=== PATIENT | male | born 1950 ===

== ENCOUNTER → 2021-08-29 08:59 | Outpatient (BNVA) | payer MEDICARE, SELFPAY | PROVIDERS: PCP Internal Medicine; Visit Provider Urology | DX: N52.9 Male erectile dysfunction, unspecified (principal) | CPT/HCPCS: 99212 ==

== ENCOUNTER 2024-09-22 10:28 | Outpatient (AMB) | payer MEDICARE, SELFPAY ==
--- NOTE | 2024-09-22 11:06 | A.OFFVIS_ITS ---
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 LETHARGY pregabalin [From LYRICA] Allergy (Unknown, Verified 09/22/24 11:08) SKIN CRAWL HPI Comments Details: Cole is a very pleasant male. He is a patient of Dr. Mckoy. He is seen for the following urologic condition. - erectile dysfunction - low libido - urinary frequency Has not been seen since 09/14/2021 Primary concern is urinary frequency with urge Has recently had increase in dose of Jardiance from 20 mg to 45 mg Discussed pathophysiology of Jardiance. Dumps glucose into urine. This leads to increased thirst, urinary volume, urinary frequency. Recommend discussion with primary care regarding change in time of Jardiance administration or change in medication dosage. It appears he can not tolerate high-dose Jardiance. His other issue is decreased energy. Recommend testing testosterone baseline given diabetic status. Given low tolerability of high-dose Jardiance would recommend investigation for GLP 1 administration with associated weight loss. Testosterone labs now and in three-month Erectile dysfunction Penile implant placed proximally 2015 Has had issues with activation Concern about prior infection with MRI that was negative in November 2019 On examination today prosthetic was only partially deflated We went through discussion and instruction for full deflation followed by full inflation Prosthesis is mechanically intact with good inflation and Good deflation He had some degree of uncertainty about the exact process for each of these functions and this was addressed in the visit today PENDING SALE TO [facility] Surgical History (Updated 08/31/24 @ 14:42 by LEAH Hayes) History of hemilaminectomy H/O colonoscopy Hx of appendectomy Review of Systems Const Denies chills and Denies fever(s) Card Reports no additional complaints and Denies syncope Resp Denies cough GI Denies abdominal pain and Denies heartburn Reports as per HPI and Denies change in libido Neuro Denies syncope Psych Denies change in libido Endo Denies change in libido Physical Exam Const General: cooperative, healthy appearing, comfortable and no acute distress Orientation/consciousness: patient oriented x3 HEENT Face and sinus: Yes normal facial exam Mouth: moist mucous membranes Neck Neck: Yes normal visual inspection, Yes full ROM and Yes trachea midline Chest Chest palpation & inspection: normal inspection of the chest Resp Effort & Inspection: normal respiratory effort, able to speak in complete sentences and no respiratory distress GI Inspection: Yes normal to inspection Back/Spine/Pelvis Cervical Spine: normal cervical lordosis Thoracic/Lumbar Spine: thoracic and lumbar spine normal to inspection Skin General skin exam: no rashes or lesions noted Neuro General: patient oriented x3, gait normal, tone normal and moves all extremities Extrem General: Yes normal to inspection and Yes capillary refill normal Results AMB Urinalysis, Automated UA Leukoctes 0 Cora/uL Last Edit by DAVIAN Villagomez on 09/22/24 11:24 UA Nitrite Negative Last Edit by DAVIAN Villagomez on 09/22/24 11:24 UA Urobilinogen 0.2 mg/dL Last Edit by DAVIAN Villagomez on 09/22/24 11:2 4 UA Protein 0 mg/dL Last Edit by DAVIAN Villagomez on 09/22/24 11:24 UA pH 5.5 Last Edit by Jin Wilder CCM on 09/22/24 11:24 UA Blood 0 Mariano/uL Last Edit by DAVIAN Villagomez on 09/22/24 11:24 UA Specific [place] 1.015 Last Edit by DAVIAN Villagomez on 09/22/24 11: 24 UA Ketone Negative Last Edit by DAVIAN Villagomez on 09/22/24 11:24 UA Bilirubin 0 mg/dL Last Edit by Jin Wilder CCM on 09/22/24 11:24 UA Glucose 1000 mg/dL Last Edit by DAVIAN Villagomez on 09/22/24 11:24 Results Reviewed Results Reviewed: Laboratory Last Values Urine pH (Auto) 5.5 09/22/24 11:24 Specific [place] (Auto) 1.015 09/22/24 11:24 Urine Protein (Auto) 0 mg/dL 09/22/24 11:24 Glucose (UA)(Auto) 1000 mg/dL 09/22/24 11:24 Urine Ketones (Auto) Negative 09/22/24 11:24 Urine Blood (Auto) 0 Mariano/uL 09/22/24 11:24 Urine Nitrite (Auto) Negative 09/22/24 11:24 Urine Bilirubin (Auto) 0 mg/dL 09/22/24 11:24 Urine Urobilinogen (Auto) 0.2 mg/dL 09/22/24 11:24 Leukocyte Esterase (Auto) 0 Cora/uL 09/22/24 11:24 Assessment & Plan Assessment & Plan (1) Erectile dysfunction associated with type 2 diabetes mellitus: Code(s): E11.69 - Type 2 diabetes mellitus with other specified complication; N52.1 - Erectile dysfunction due to diseases classified elsewhere Category: Medical (2) Low libido: Code(s): R68.82 - Decreased libido Category: Medical Plan Testosterone labs now Testosterone labs three-month Three-month follow-up Orders: Orders AMB Urinalysis Automated Today Z13.9 - Encounter for screening, unspecified Testosterone, Free/Total Today E11.69 - Type 2 diabetes mellitus with other specified complication, N52.1 - Erectile dysfunction due to diseases classified elsewhere Lutenizing Hormone Today E11.69 - Type 2 diabetes mellitus with other specified complication, N52.1 - Erectile dysfunction due to diseases classified elsewhere Testosterone, Free/Total 3 Months E11.69 - Type 2 diabetes mellitus with other specified complication, N52.1 - Erectile dysfunction due to diseases classified elsewhere Patient Instructions: Imaging studies, laboratory and physical exam results were discussed and reviewed in detail. No major barriers to patient understanding were identified. An opportunity to ask questions regarding the treatment plan was provided. All questions were answered. The patient expressed understanding and agreement with the above treatment plan. The patient is aware they should contact our office by phone for worsening of their current condition or the appearance of new urologic symptoms. Compliance is encouraged with any medications and followup testing that is ordered. It is a privilege to participate in the urologic care of your patient. If you have any questions or concerns regarding treatment for the above conditions, or other urologic issues, please do not hesitate to contact me. The office telephone contact is [phone]. This note is constructed using voice recognition software. While every effort has been made to ensure accuracy command post craftsman errors may have been included. Yours sincerely, Dr Louis Mccurdy MD, [facility] - Urology Providers of Expert, Compassionate Care for the Genitourinary System Coding Level of Care Code Est Pt Level 4 (63789) Diagnoses Erectile dysfunction associated with type 2 diabetes mellitus E11.69; N52.1 Low libido R68.82
--- OUTSIDE RECORDS SUMMARY | 2024-09-22 11:27 | XMS_ITS | Patient Health Record ---
Author Organization 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 Name Role Phone Yvon Mckoy Jr, MD Primary Care Provider Unavail able Benyambar Nikkie Unavailable [phone] Allergies Allergen (clinical drug ingredient) Drug/Non Drug Allergy documented on EMR Reaction Allergy Type Onset Date Status ibuprofen Advil Unknown Drug Allergy Active Aleve Unknown Drug Allergy Active Motrin Unknown Drug Allergy Active Reason For Referral No Information Medications Medication SIG (Take, Route, Frequency, Duration) Notes Start Date End Date Status Lisinopril-hydroCHLOROthia zide Unknown Sertraline HCl Activ e Eplerenone 25 MG 1 tablet Orally Once a day for 30 day(s) Not-Taking Potassium Chloride U nknown amLODIPine Besylate Unknown Spironolactone 25 MG 1 tablet Orally for 30 day(s) Active Felodipine ER 5 MG as directed Orally Active Gabapentin Active metFORMIN HCl Active Pravastatin Sodium A ctive Colace 100 MG 1 capsule as needed Orally Once a day for 30 day(s) Active Voltaren 1 % as directed Externally Active Aspirin Active tiZANidine HCl 4 MG 1 tablet as needed Orally Three times a day Active Carvedilol 25 MG 1 tablet with food Orally Twice a day for 30 day(s) Active Narcan 4 MG/0.1ML as directed Nasally Active Meloxicam 15 MG 1 tablet Orally Once a day for 30 day(s) Active Famotidine 20 MG 1 tablet at bedtime as needed Orally Once a day for 30 day(s) Active Accu-Chek Guide w/Device as directed Active Pravastatin Sodium 40 MG 1 tablet Orally Once a day for 30 day(s) Active oxyCODONE-Acetaminophen 5-325 MG 1 tablet as needed Orally every 6 hrs Active Immunizations Vaccine Route Administration Date Status Comme nts Influenza Unknown 06/07/2022 Administered Social History Tobacco Use: Social History Observation Description Date Details (start date - stop date) Former Smoker NA - NA Tobacco Use/Smoking Question Answer Notes Are you a: former smoker Additional Findings: Tobacco Non-User Current no n-smoker Tobacco use other than smoking: Question Answer Notes Are you an other tobacco user? 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 Rx drug management (4) Problem Chronic gouty arthritis (53394690) 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) Active confirmed Rx drug management (4) Plan Of Treatment No Information Insurance Providers Payer Name Payer Address Payer Phone Subscriber Number Group Number Insured Name Patient Relationship to Insured Coverage Start Date Coverage End Date Medicare [employer] [address] [facility] [place] [address] [phone] [id number] Cole Taylor Self - patient is the insured A[employer] Secondary to Medicare [address] [place] [address] [id number] Cole Taylor Self - patient is the insured Medical (General) History Medical History History ICD Code Back,Hip,and Knee pain type II diabetes Diverticulosis Gout High blood pressure Sciatica Chicken pox Arthritis Numbness Diabetic Reflux ( GERD) Surgical History Surgery Date(Month/Year) back 06/19/2010 tonsills 1970s
--- OUTSIDE RECORDS SUMMARY | 2024-09-22 11:27 | XMS_ITS | Data Portability ---
Author Organization [facility] Address [address] [facility] [address] [place] [address] Care Team Providers Care Social Science Analyst Name Role Phone EZIO DONALDSON Primary Care Provider JIMBO CLAROS Referring Provider Assessment Encounter Date Assessment Date Assessment LastModified by Organization Details LastModified Time 12/04/2023 12/04/2023 Cole Taylor is a 73 year old man with complaints of low back pain radiating into left lower extremity with numbness. MRI Lumbar spine shows degenerative and postoperative changes. There is a minimal new disc protrusion at L1-2 level with no nerve root compression or stenosis. There is a slight decrease in size of the L4-5 disc protrusion. There is severe bilateral stenosis at L5-S1 level with a right disc osteophyte complex in close proximity to right L5 nerve root. He is here for a repeat Lumbar epidural steroid injections under fluoroscopic guidance. The risks and benefits of the procedure were discussed in detail. He wishes to proceed. He will follow up as needed. I have encouraged him to continue with home exercises. He is a diabetic. Blood sugar levels may temporarily increase after steroid injections. He was advised to check his blood glucose levels three times a day post procedure. If his levels are above 250, he was advised to contact his PCP. [email or web address] Not available 12/04/2023 13:42:23 03/05/2024 03/05/2024 Cole Taylor is a 73 year old man with complaints of low back pain radiating into left lower extremity with numbness. MRI Lumbar spine shows degenerative and postoperative changes.Multiple levels of lumbar spondylosis . Especially L5-S1 level has severe left neuro foramen narrowing with left L5 nerve compression . I recommend a repeat Lumbar epidural steroid injections under fluoroscopic guidance. The risks and benefits of the procedure were discussed in detail. He wishes to proceed. An appointment will be booked after insurance approval. I have encouraged him to continue with home exercises. He is a diabetic. Blood sugar levels may temporarily increase after steroid injections. He was advised to check his blood glucose levels three times a day post procedure. If his levels are above 250, he was advised to contact his PCP. [email or web address] Not available 03/05/2024 11:40:30 03/24/2024 03/24/2024 Cole Taylor is a 73 year old man with complaints of low back pain radiating into left lower extremity with numbness. MRI Lumbar spine shows degenerative and postoperative changes. There is a minimal new disc protrusion at L1-2 level with no nerve root compression or stenosis. There is a slight decrease in size of the L4-5 disc protrusion. There is severe bilateral stenosis at L5-S1 level with a right disc osteophyte complex in close proximity to right L5 nerve root. He is here for a repeat Lumbar epidural steroid injections under fluoroscopic guidance. The risks and benefits of the procedure were discussed in detail. He wishes to proceed. He will follow up as needed. I have encouraged him to continue with home exercises. He is a diabetic. Blood sugar levels may temporarily increase after steroid injections. He was advised to check his blood glucose levels three times a day post procedure. If his levels are above 250, he was advised to contact his PCP. [email or web address] Not available 03/24/2024 11:30:23 06/26/2024 06/26/2024 Cole Taylor is a 73 year old man with complaints of low back pain radiating into left lower extremity with numbness. MRI Lumbar spine shows degenerative and postoperative changes.Multiple levels of lumbar spondylosis . Especially L5-S1 level has severe left neuro foramen narrowing with left L5 nerve compression . I recommend a repeat Lumbar epidural steroid injections under fluoroscopic guidance. The risks and benefits of the procedure were discussed in detail. He wishes to proceed. An appointment will be booked after insurance approval. I have encouraged him to continue with home exercises. He is a diabetic. Blood sugar levels may temporarily increase after steroid injections. He was advised to check his blood glucose levels three times a day post procedure. If his levels are above 250, he was advised to contact his PCP. [email or web address] Not available 06/26/2024 11:25:01 07/15/2024 07/15/2024 Cole Taylor is a 73 year old man with complaints of low back pain radiating into left lower extremity with numbness. MRI Lumbar spine shows degenerative and postoperative changes. There is a minimal new disc protrusion at L1-2 level with no nerve root compression or stenosis. There is a slight decrease in size of the L4-5 disc protrusion. There is severe bilateral stenosis at L5-S1 level with a right disc osteophyte complex in close proximity to right L5 nerve root. He is here for a repeat Lumbar epidural steroid injections under fluoroscopic guidance. The risks and benefits of the procedure were discussed in detail. He wishes to proceed. He will follow up as needed. I have encouraged him to continue with home exercises. He is a diabetic. Blood sugar levels may temporarily increase after steroid injections. He was advised to check his blood glucose levels three times a day post procedure. If his levels are above 250, he was advised to contact his PCP. [email or web address] Not available 07/15/2024 08:57:12 Plan of Treatment Reminders Order Date Submit Date Provider Last Modified By Organization Details Last Modified Time Details Appointments RETURN 2024 09:30A M Partha schmidt MD Not available Not available Not available Lab None recorded . Referral None recorded . Procedures None recorded . Surgeries None recorded . Imaging None recorded . Medication Orders None recorded . Patient TargetsNo targets recorded. Patient Instructions Encounter Date Encounter Id Patient Instructions Last Modified By Organization Details Last Modified Time 12/04/2023 [id number] He was advised against bed rest lasting longer than four days and to continue activities as tolerated. [email or web address] Not available 12/04/2023 13:40:02 03/05/2024 [id number] He was advised against bed rest lasting longer than four days and to continue activities as tolerated. [email or web address] Not available 03/05/2024 11:40:33 03/24/2024 [id number] He was advised against bed rest lasting longer than four days and to continue activities as tolerated. [email or web address] Not available 03/24/2024 11:30:26 06/26/2024 [id number] He was advised against bed rest lasting longer than four days and to continue activities as tolerated. [email or web address] Not available 06/26/2024 11:25:03 07/15/2024 [id number] He was advised against bed rest lasting longer than four days and to continue activities as tolerated. [email or web address] Not available 07/15/2024 08:57:20 Reason for Referral None Reported. Problems Name Problem SNOMED Code Status Onset Date Resolution Date Notes Provider Name and Address Organization Details Recorded Time Spondylosis without myelopathy [id number] Justin schmidt MD [address] , [address], [place], [address], [place] [facility] 6 13:41:20 Muscle pain [id number] Justin schmidt MD [address] , [address], [place], [address], [place] [facility] 6 13:41:20 Spinal stenosis of lumbar region [id number] Justin schmidt MD [address] , [address], [place], [address], [place] [facility] 6 13:41:20 Lumbosacral radiculitis [id number] Justin schmidt MD [address] , [address], [place], [address], [place] [facility] 6 13:41:20 Pseudoclaud ication syndrome Completed 06/24/2013 Partha schmidt MD [address] , [address], [place], [address], [place] [facility] 6 13:37:56 Diabetes mellitus [id number] Active Partha schmidt MD [address] , [address], [place], [address], [place] [facility] 6 13:41:20 Shoulder joint pain [id number] Justin schmidt MD [address] , [address], [place], [address], [place] [facility] 6 13:41:20 Degeneratio n of interverteb ral disc [id number] Active Partha schmidt MD [address] , [address], [place], [address], [place] [facility] 6 13:41:20 Problem Notes None recorded. Procedures Surgical History Date Name Laterality Status Provider Name and Address Organization Details Recorded Time 07/15/20 24 Lumbar Epidural steroid injection under fluoroscopic guidance completed Partha Mike MD [address] , [address], [facility] [place], [address], [place] [facility] 07/15/2024 08:57:51 03/24/20 24 Lumbar Epidural steroid injection under fluoroscopic guidance completed Partha Mike MD [address] , [address], [facility] [place], [address], [place] [facility] 03/24/2024 11:30:56 12/04/19 24 Lumbar Epidural steroid injection under fluoroscopic guidance completed Partha Mike MD [address] , [address], [facility] [place], [address], [place] [facility] 12/04/2023 13:40:41 06/12/20 23 Lumbar Epidural steroid injection under fluoroscopic guidance completed Partha Mike MD [address] , [address], [place], [address], [place] [facility] 06/12/2023 15:01:20 01/09/20 23 Lumbar Epidural steroid injection under fluoroscopic guidance completed Partha Mike MD [address] , [address], [place], [address], [place] [facility] 01/08/2023 15:00:42 10/23/19 23 Lumbar Epidural steroid injection under fluoroscopic guidance completed Partha Mike MD [address] , [address], [place], [address], [place] [facility] 10/23/2022 15:03:01 07/31/20 22 Lumbar Epidural steroid injection under fluoroscopic guidance completed Partha Mike MD [address] , [address], [place], [address], [place] [facility] 07/31/2022 13:25:34 04/25/20 22 Lumbar Epidural steroid injection under fluoroscopic guidance completed Partha Mike MD [address] , [address], [place], [address], [place] [facility] 04/25/2022 10:35:19 01/03/20 22 Lumbar Epidural steroid injection under fluoroscopic guidance completed Partha Mike MD [address] , [address], [place], [address], [place] [facility] 01/02/2022 16:29:21 10/04/19 22 Sacroiliac Joint Steroid Injections, using Fluoroscopy completed Partha Mike MD [address] , [address], [place], [address], [place] [facility] 10/04/2021 10:59:56 07/25/20 21 Lumbar Epidural steroid injection under fluoroscopic guidance completed Partha Mike MD [address] , [address], [facility] [place], [address], [place] [facility] 07/25/2021 10:59:40 04/18/20 21 Lumbar Epidural steroid injection under fluoroscopic guidance completed Partha Mike MD [address] , [address], [place], [address], [place] [facility] 04/18/2021 10:57:10 01/04/20 21 Lumbar Epidural steroid injection under fluoroscopic guidance completed Partha Mike MD [address] , [address], [place], [address], [place] [facility] 01/03/2021 15:21:58 10/04/19 21 Lumbar Epidural steroid injection under fluoroscopic guidance completed Partha Mike MD [address] , [address], [place], [address], [place] [facility] 10/05/2020 14:16:42 07/12/20 20 Lumbar Epidural steroid injection under fluoroscopic guidance completed Partha Mike MD [address] , [address], [place], [address], [place] [facility] 07/12/2020 15:12:10 04/19/20 20 Lumbar Epidural steroid injection under fluoroscopic guidance completed Partha Mike MD [address] , [address], [place], [address], [place] [facility] 04/19/2020 11:32:47 01/12/20 20 Lumbar Epidural steroid injection under fluoroscopic guidance completed Partha Mike MD [address] , [address], [place], [address], [place] [facility] 01/14/2020 09:58:10 09/01/19 20 Lumbar Epidural steroid injection under fluoroscopic guidance completed Partha Mike MD [address] , [address], [place], [address], [place] [facility] 09/08/2019 09:56:16 06/03/20 19 Lumbar Epidural steroid injection under fluoroscopic guidance completed Partha Mike MD [address] , [address], [place], [address], [place] [facility] 06/05/2019 15:43:58 03/10/20 19 Lumbar Epidural steroid injection under fluoroscopic guidance completed Partha Mike MD [address] , [address], [place], [address], [place] [facility] 03/11/2019 13:37:47 12/10/19 19 Lumbar Epidural steroid injection under fluoroscopic guidance completed Partha Mike MD [address] , [address], [place], [address], [place] [facility] 12/10/2018 10:47:26 05/28/20 18 Lumbar Epidural steroid injection under fluoroscopic guidance completed Partha Mike MD [address] , [address], [place], [address], [place] [facility] 05/28/2018 14:21:58 01/09/20 18 Lumbar Epidural steroid injection under fluoroscopic guidance completed Partha Mike MD [address] , [address], [place], [address], [place] [facility] 01/09/2018 14:13:45 06/11/20 17 Radiofrequency of Lumbar/Sacral medial branches supplying the facets under fluoroscopic guidance completed Partha Mike MD [address] , [address], [place], [address], [place] [facility] 06/14/2017 14:37:54 04/23/20 17 Fluoroscopic Guided Lumbar Facet Steroid Injections of levels completed Partha Mike MD [address] , [address], [place], [address], [place] [facility] 04/24/2017 10:38:56 02/20/20 17 Fluoroscopic Guided Lumbar Facet Steroid Injections of levels completed Partha Mike MD [address] , [address], [place], [address], [place] [facility] 02/19/2017 15:04:05 11/09/19 17 Fluoroscopic Guided Lumbar Facet Steroid Injections of levels completed Partha Mike MD [address] , [address], [place], [address], [place] [facility] 11/08/2016 11:54:16 07/04/20 16 Lumbar Epidural steroid injection under fluoroscopic guidance completed Partha Mike MD [address] , [address], [place], [address], [place] [facility] 07/09/2016 14:02:15 05/22/20 16 Radiofrequency of Lumbar/Sacral medial branches supplying the facets under fluoroscopic guidance completed Partha Mike MD [address] , [address], [place], [address], [place] [facility] 05/31/2016 12:13:20 04/03/20 16 Fluoroscopic Guided Lumbar Facet Steroid Injections of levels completed Partha Mike MD [address] , [address], [place], [address], [place] [facility] 04/03/2016 13:41:21 03/06/20 16 Fluoroscopic Guided Lumbar Facet Steroid Injections of levels completed Partha Mike MD [address] , [address], [place], [address], [place] [facility] 03/08/2016 13:50:00 11/10/19 16 Trigger Point Injections under ultrasound guidance completed Partha Mike MD [address] , [address], [place], [address], [place] [facility] 11/10/2015 14:02:24 10/26/19 16 Fluoroscopic Guided Lumbar Facet Steroid Injections of levels completed Partha Mike MD [address] , [address], [place], [address], [place] [facility] 10/26/2015 09:40:25 09/28/19 16 Fluoroscopic Guided Lumbar Facet Steroid Injections of levels completed Partha Mike MD [address] , [address], [place], [address], [place] [facility] 09/28/2015 13:48:43 03/14/20 15 Lumbar Epidural steroid injection under fluoroscopic guidance completed Partha Mike MD [address] [facility] , [address], [place], [address], [place] [facility] 03/14/2015 14:26:28 11/23/19 15 Lumbar Epidural steroid injection under fluoroscopic guidance completed Partha Mkie MD [address] , [address], [place], [address], [place] [facility] 11/23/2014 14:50:01 06/14/20 14 Lumbar Epidural steroid injection under fluoroscopic guidance completed Partha Mike MD [address] , [address], [place], [address], [place] [facility] 06/14/2014 11:20:52 03/01/20 14 Lumbar Epidural steroid injection under fluoroscopic guidance completed Partha Mike MD [address] , [address], [place], [address], [place] [facility] 03/02/2014 14:36:10 12/09/19 14 Intra-articular shoulder steroid injection under ultrasound guidance completed Partha Mike MD [address] , [address], [place], [address], [place] [facility] 12/08/2013 18:00:06 09/21/19 14 Lumbar Epidural steroid injection under fluoroscopic guidance completed Partha Mike MD [address] , [address], [place], [address], [place] [facility] 09/22/2013 08:45:16 06/23/20 13 Lumbar Epidural steroid injection under fluoroscopic guidance completed Partha Mike MD [address] [facility] , [address], [place], [address], [place] [facility] 06/24/2013 09:47:40 02/03/20 13 Lumbar Epidural steroid injection under fluoroscopic guidance completed Partha Mike MD [address] [facility] , [address], [place], [address], [place] [facility] 02/03/2013 15:20:43 11/11/19 13 Lumbar Epidural steroid injection under fluoroscopic guidance completed Partha Mike MD [address] [facility] , [address], [place], [address], [place] [facility] 11/10/2012 13:43:13 08/11/20 12 Lumbar Epidural steroid injection under fluoroscopic guidance completed Partha Mike MD [address] [facility] , [address], [place], [address], [place] [facility] 08/12/2012 09:13:07 11/26/19 12 Lumbar Epidural steroid injection under fluoroscopic guidance completed Partha Mike MD [address] [facility] , [address], [place], [address], [place] [facility] 11/27/2011 10:25:45 10/16/19 12 Lumbar Epidural steroid injection under fluoroscopic guidance completed Partha Mike MD [address] [facility] , [address], [place], [address], [place] [facility] 10/17/2011 09:56:36 Back Surgery completed Amaris Johnson [facility] 12/01/2013 09:38:49 Other completed Amaris Johnson [facility] 11/22/2014 12:00:10 Other completed Amaris Johnson [facility] 10/04/2011 09:30:27 Other completed Amaris Johnson [facility] 10/04/2011 09:30:27 Tonsillectomy completed Amaris Johnson [facility] 10/04/2011 09:30:27 Appendectomy completed Amaris Choezier MA [facility] 11/05/2018 11:04:20 Imaging Results None recorded. Procedure Notes None recorded. Medical Equipment None Reported. Allergies No known drug allergies Medications Name Sig Start Date Stop Date Status Note LastModified by Organization Details LastModified Time drug name is not avaialble active Not Available Not Available No t Available cyclobenza rocio 10 mg tablet active Not Available Not Available No t Available metformin 500 mg tablet 1 TABLET BY MOUTH 3 TIMES A DAY,INST R:WITH MEALS active Not Available Not Available No t Available carvedilol 25 mg tablet TAKE 1 TABLET BY MOUTH TWICE A DAY active Not Available Not Available No t Available potassium chloride ER 10 mEq capsule,ex tended release active Not Available Not Available Not Available carvedilol 12.5 mg tablet 07/04 completed Not Available Not Available Not Available nabumetone 750 mg tablet active Not Available Not Available Not Available ciprofloxa rand 750 mg tablet active Not Available Not Available Not Available pravastati n 40 mg tablet TAKE 1 TABLET BY MOUTH EVERY DAY active Not Available Not Available No t Available ibuprofen 800 mg tablet active Not Available Not Available Not Available tizanidine 4 mg tablet TAKE 1 TABLET BY MOUTH EVERYDAY AT BEDTIME active Not Available Not Available No t Available hydrochlor othiazide 50 mg tablet active Not Available Not Available Not Available meloxicam 15 mg tablet 1 TABLET BY MOUTH DAILY,IN STR:FOR 5 TO 10 DAYS FOR ANY ACUTE EPISODE OF GOUT. active Not Available Not Available No t Available prednisone 20 mg tablet active Not Available Not Available Not Available felodipine ER 5 mg tablet,ext ended release 24 hr TAKE ONE TABLET BY MOUTH EVERY DAY 04/25 completed Not Available Not Available Not Available sertraline 100 mg tablet TAKE 1 AND 1/2 TABLETS BY MOUTH DAILY AT BEDTIME active Not Available Not Available No t Available prednisone 5 mg tablet active Not Available Not Available Not Available Anucort-HC 25 mg suppositor y active Not Available Not Available Not Available Accu-Chek Softclix Lancets USE DIRECTED TO TEST BLOOD SUGAR 1 TO 2 TIMES DAILY active Not Available Not Available No t Available meclizine 12.5 mg tablet TK 1 T PO TID FOR 7 DAYS 06/26 completed Not Available Not Available Not Available potassium chloride ER 10 mEq tablet,ext ended release 07/25 completed Not Available Not Available Not Available ciprofloxa rand 250 mg tablet active Not Available Not Available Not Available amlodipine 5 mg tablet 12/19 completed Not Available Not Available Not Available ciprofloxa rand 500 mg tablet TAKE 1 TABLET BY MOUTH EVERY 12 HOURS FOR 10 DAYS 07/25 completed Not Available Not Available Not Available tramadol 50 mg tablet active Not Available Not Available Not Available spironolac tone 25 mg tablet TAKE 1 TABLET BY MOUTH EVERY DAY active Not Available Not Available No t Available oxycodone- acetaminop hen 5 mg-325 mg tablet TAKE ONE TABLET BY MOUTH EVERY 6 HOURS NEEDED FOR SEVERE PAIN FOR 7 DAYS 06/26 completed Not Available Not Available Not Available ofloxacin 0.3 % ear drops active Not Available Not Available Not Available amoxicilli n 875 mg tablet active Not Available Not Available Not Available famotidine 20 mg tablet TAKE 1 TABLET BY MOUTH EVERYDAY AT BEDTIME active Not Available Not Available No t Available prednisolo ne acetate 1 % eye drops,susp ension 05/04 completed Not Available Not Available Not Available Green Tea 250 mg capsule 2 caps daily 12/09 completed Not Available Not Available Not Available tamsulosin 0.4 mg capsule active Not Available Not Available Not Available ciprofloxa rand 0.3 % eye drops active Not Available Not Available No t Available cephalexin 500 mg capsule active Not Available Not Available Not Available lidocaine 5 % topical patch APPLY 1 PATCH BY TRANSDER MAL ROUTE ONCE DAILY (MAY WEAR UP TO 12HOURS) active Not Available Not Available No t Available verapamil ER (PM) 300 mg capsule 24hr pellet CT,ext.rel ease active Not Available Not Available Not Available indomethac in 50 mg capsule TAKE 1 CAPSULE BY MOUTH THREE TIMES DAILY NEEDED FOR GOUT PAIN TAKE WITH FOOD 04/25 completed Not Available Not Available Not Available gabapentin 300 mg capsule TAKE 3 CAPSULES 3 TIMES A DAY BY ORAL ROUTE FOR 90 DAYS. active Not Available Not Available No t Available lisinopril 20 mg-hydroch lorothiazi de 25 mg tablet 01/03 completed Not Available Not Available Not Available felodipine ER 10 mg tablet,ext ended release 24 hr TAKE 1 TABLET BY MOUTH EVERY DAY active Not Available Not Available No t Available hydrocodon e 5 mg-acetami nophen 500 mg tablet active Not Available Not Available No t Available diclofenac sodium 50 mg tablet,del ayed release active Not Available Not Available Not Available Viagra 100 mg tablet active Not Available Not Available No t Available ibuprofen 600 mg tablet active Not Available Not Available Not Available methylpred nisolone 4 mg tablets in a dose pack 10/20 completed Not Available Not Available Not Available Vitamin D2 1,250 mcg (50,000 unit) capsule TAKE 1 CAPSULE BY MOUTH ONCE A WEEK FOR 12 WEEKS 06/26 completed Not Available Not Available Not Available ketoconazo le 2 % topical cream APPLY TO RASH ON FEET ONCE DAILY NEEDED active Not Available Not Available No t Available lisinopril 40 mg tablet TAKE 1 TABLET BY MOUTH DAILY 01/03 completed Not Available Not Available Not Available fluticason e propionate 50 mcg/actuat ion nasal spray,susp ension active Not Available Not Available Not Available sertraline 50 mg tablet TK 1 T PO D HS 10/04 completed Not Available Not Available Not Available ipratropiu m bromide 21 mcg (0.03 %) nasal spray active Not Available Not Available Not Available naproxen 500 mg tablet active Not Available Not Available Not Available diazepam 5 mg tablet active Not Available Not Available No t Available eplerenone 25 mg tablet TAKE 1 TABLET BY MOUTH DAILY 06/26 completed Not Available Not Available Not Available Avodart 0.5 mg capsule active Not Available Not Available Not Available Vigamox 0.5 % eye drops 05/04 completed Not Available Not Available Not Available Tylenol PM Extra Strength 25 mg-500 mg tablet Take 2 tablets every day by oral route. active Not Available Not Available No t Available Prilosec OTC 20 mg tablet,del ayed release 1 tab daily active as needed Not Available Not Available Not Available Cialis 20 mg tablet active Not Available Not Available No t Available aspirin active Not Available Not Avail able Not Available Tylenol active Not Available Not Avail able Not Available OneTouch Ultra2 Meter kit active Not Available Not Available No t Available Zostavax (PF) 19,400 unit/0.65 mL subcutaneo us suspension active Not Available Not Available N ot Available peg 3350-elect rolytes 236 gram-22.74 gram-6.74 gram-5.86 gram solution MIX AND DRINK 240ML EVERY 15 MINUTES UNTIL GONE 04/25 completed Not Available Not Available Not Available oxycodone 10 mg tablet TAKE 1 TABLET BY MOUTH TWICE A DAY FOR 28 DAYS active Not Available Not Available No t Available diclofenac 1 % topical gel APPLY 4 GRAMS TOPICALL Y TO THE AFFECTED AREA FOUR TIMES DAILY. LABS DUE. ORDERS IN THE SYSTEM. PLEASE GOTO ANY [facility] active Not Available Not Available No t Available Javad Savage Lancets 33 gauge active Not Available Not Available Not Available Accu-Chek FastClix Lancing Device active Not Available Not Available Not Available Ilevro 0.3 % eye drops,susp ension INSTIL 1 DROP DAILY TO SURGIVAL EYE. START 2 DAYS PRIOR TO SURGERY. TAPER DIRECETD 05/04 completed Not Available Not Available Not Available Fluvirin 7582-9496 45 mcg (15 mcg x 3)/0.5 mL intramuscu lar suspension INJECT 0.5 ML INTRAMUS CULARLY DIRECTED . active Not Available Not Available No t Available Jardiance 10 mg tablet TAKE 1 TABLET BY MOUTH EVERY DAY IN THE MORNING 06/26 completed Not Available Not Available Not Available Jardiance 25 mg tablet TAKE 1 TABLET BY MOUTH EVERY MORNING active Not Available Not Available No t Available naloxone 4 mg/actuati on nasal spray ADMINIST ER 1 SPRAY INTO ONE NOSTRIL. CALL 911. REPEAT AFTER 2-3 MIN IF NO OR MINIMAL RESPONSE active Not Available Not Available No t Available Accu-Chek Guide test strips USE ONCE TO TWICE DAILY DIRECTED TO TEST BLOOD SUGAR active Not Available Not Available No t Available Accu-Chek Guide Glucose Meter TEST BLOOD SUGAR ONCE TO TWICE DAILY active Not Available Not Available No t Available Fluzone High-Dose 9142-7345 (PF) 180 mcg/0.5 mL intramuscu lar syringe ADM 0.5ML IM UTD 10/20 completed Not Available Not Available Not Available Fluad 65yr up(PF)45 mcg(15 mcgx3)/0.5 mL intramuscu lar syringe ADM 0.5ML IM UTD 07/12 completed Not Available Not Available Not Available Fluzone High-Dose Quad (PF) 240 mcg/0.7 mL IM syringe ADM 0.7ML IM UTD 07/12 completed Not Available Not Available Not Available BinaxNOW COVID-19 Ag Self Test kit TEST DIRECTED TODAY active Not Available Not Available No t Available Vitals Date Recorded Body height Heart rate Oxygen saturation Oxygen saturation in Arterial blood by Pulse oximetry Systolic blood pressure Diastolic blood pressure Provider Name and Address Organization Details Last Updated DateTime 4 175.26 cm 86 /min 96 % 96 % 127 mm[Hg] 98 mm[Hg] Khadra Hughes [facility] - [facility] 4 13:13:17 Date Recorded Body height Oxygen saturation Oxygen saturation in Arterial blood by Pulse oximetry Heart rate Systolic blood pressure Diastolic blood pressure Provider Name and Address Organization Details Last Updated DateTime 4 175.26 cm 96 % 96 % 67 /min 115 mm[Hg] 64 mm[Hg] Khadra Hughes MA - [facility] 4 11:09:00 Date Recorded Body height Heart rate Oxygen saturation Oxygen saturation in Arterial blood by Pulse oximetry Systolic blood pressure Diastolic blood pressure Provider Name and Address Organization Details Last Updated DateTime 4 175.26 cm 78 /min 97 % 97 % 144 mm[Hg] 72 mm[Hg] Griselda Tena MA - [facility] 4 11:07:36 Date Recorded Body height Heart rate Oxygen saturation Oxygen saturation in Arterial blood by Pulse oximetry Body mass index (BMI) Body weight Systolic blood pressure Diastolic blood pressure Provider Name and Address Organization Details Last Updated DateTime 4 175.26 cm 80 /min 97 % 97 % 41.3 kg/m2 968767. 86 g 166 mm[Hg] 84 mm[Hg] Partha schmidt MD [address] [place] [address] , [address], [place], [address], [place] - [facility] 4 11:12:56 Date Recorded Body height Heart rate Oxygen saturation Oxygen saturation in Arterial blood by Pulse oximetry Systolic blood pressure Diastolic blood pressure Provider Name and Address Organization Details Last Updated DateTime 4 175.26 cm 71 /min 97 % 97 % 121 mm[Hg] 63 mm[Hg] Khadra Hughes MA - [facility] 4 08:35:52 Social History Question Answer Notes LastModified by Organizat ion Details LastModified Time Tobacco Smoking Status Former Smoker Quit > 20 years Not Available [facility] 06/10/2020 03:16:11 What Is Your Level Of Alcohol Consumption? Occasional [id number] Information not available 06/10/2020 Are You Currently Employed? No Workers Comp [id number] Information not available 06/10/2020 Which Illicit Or Recreational Drugs Have You Used? 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 With Others [email or web address] Information not available 10/04/2011 Marital Status Informatio n not available 10/04/2011 What Was The Date Of Your Most Recent Tobacco Screening? 03/11/2019 [id number] Information not available 06/10/2020 Sex: Unknown Functional Status None recorded. Mental Status None recorded. Family History Relationship Description Onset Age of this Age Resolved Age Notes LastModified by Organization Details LastModified Time Paternal Uncle Malignant neoplastic disease Prosta te (previ ously record ed as Cancer ) [email or web address] Not available 04/03/2016 13:38:11 Brother Malignant neoplastic disease Prosta te (previ ously record ed as Cancer ) [email or web address] Not available 04/03/2016 13:38:11 Father Problem PVD (previ ously record ed as Other) [email or web address] Not available 04/03/2016 13:38:11 Medical History Condition Response Diabetes Y Hypertension Y GERD/Reflux Y High Cholesterol Y Past Encounters Encounter ID Performer Location Encounter Start Date Encounter Closed Date Diagnosis/Indication Diagnosis SNOMED-CT Code Diagnosis ICD10 Code Diagnosis Note [id number] [facility] [address] [place] [id number] 10/04/2011 08:43:25 10/04/2011 15:11:17 [id number] [facility] [address] [place] [id number] 10/16/2011 13:03:10 10/16/2011 15:55:21 [id number] [facility] [address] [place] [id number] 11/14/2011 08:53:08 11/14/2011 16:02:29 [id number] [facility] [address] [place] [id number] 11/26/2011 13:47:13 11/27/2011 09:25:30 [id number] [facility] [address] [place] [address] 01/10/2012 12:59:24 01/10/2012 15:51:49 [id number] Partha Mike MD [facility] [address] [place] [address] 07/29/2012 09:56:41 07/29/2012 15:35:09 [id number] Partha Mike MD [facility] [address] [place] [address] 08/11/2012 13:15:02 08/11/2012 15:26:03 [id number] Partha Mike MD [facility] [address] [place] [address] 09/23/2012 13:36:52 09/23/2012 15:52:57 [id number] Partha Mike MD [facility] [address] [place] [address] 11/10/2012 10:02:01 11/10/2012 15:08:49 [id number] Partha Mike MD [facility] [address] [place] [address] 01/15/2013 09:03:50 01/15/2013 09:44:06 [id number] Partha Mike MD [facility] [address] [place] [address] 02/02/2013 12:53:42 02/02/2013 15:44:04 [id number] [facility] [address] [place] [address] 03/31/2013 09:50:54 03/31/2013 15:57:47 [id number] [facility] [address] [place] [address] 06/23/2013 13:47:03 06/23/2013 15:44:00 Diabetes mellitus 76635588 Spinal deepika nosis of lumbar region 23372983 Lumbosacra l radiculitis 53989513 [id number] [facility] [address] [place] [address] 09/21/2013 09:40:53 09/21/2013 16:06:00 Spinal stenosis of lumbar region 26128090 Diabetes mellitus 57086341 Lumbosacra l radiculitis 94877825 [id number] [facility] [address] [place] [id number] 11/10/2013 09:59:56 11/13/2013 09:32:38 Diabetes mellitus 78040815 Lumbosacra l radiculitis 46918824 Spinal deepika nosis of lumbar region 10264178 Pseudoclau dication syndrome 95266440 [id number] [facility] [address] [place] [id number] 12/08/2013 14:43:41 12/08/2013 18:01:06 Spinal stenosis of lumbar region 87902427 Diabetes mellitus 82280048 Lumbosacra l radiculitis 58975377 Shoulder joint pain 942189177 18512 Amaris Johnson [facility] [address] [place] [id number] 12/16/2013 10:48:12 12/16/2013 14:53:27 Shoulder joint pain 188472360 Degenerati on of intervertebral disc 77439119 Spinal deepika nosis of lumbar region 92064587 Diabetes mellitus 29887968 Lumbosacra l radiculitis 66693861 [id number] [facility] [address] [facility] [place] [place] [address] 02/02/2014 09:34:56 02/02/2014 10:18:41 Spinal stenosis of lumbar region 62269674 Degenerati on of intervertebral disc 42060755 Lumbosacra l radiculitis 32405934 Pseudoclau dication syndrome 16786059 [id number] [facility] [address] [place] [id number] 03/01/2014 11:09:53 03/02/2014 14:37:45 Spinal stenosis of lumbar region 98922011 Degenerati on of intervertebral disc 75810575 Diabetes mellitus 40950573 Lumbosacra l radiculitis 73997635 Shoulder joint pain 811458201 [id number] [facility] [address] [facility] [place] [place] [id number] 05/26/2014 09:28:16 05/26/2014 10:59:20 Spinal stenosis of lumbar region 22542145 Degenerati on of intervertebral disc 84818702 Diabetes mellitus 31684528 Lumbosacra l radiculitis 51775721 Shoulder joint pain 050571077 [id number] [facility] [address] [facility] [place] [address] 06/14/2014 10:27:48 06/14/2014 11:25:21 Spinal stenosis of lumbar region 43400244 Degenerati on of intervertebral disc 43831544 Diabetes mellitus 64117510 Lumbosacra l radiculitis 44139361 Shoulder joint pain 549375405 [id number] [facility] [address] [facility] [place] [place] [address] 07/01/2014 13:08:47 07/02/2014 11:31:47 Spinal stenosis of lumbar region 68886036 Degenerati on of intervertebral disc 01324190 Diabetes mellitus 37660076 Lumbosacra l radiculitis 92042623 [id number] [facility] [address] [facility] [place] [place] [address] 07/15/2014 14:20:26 07/18/2014 10:47:48 Spinal stenosis of lumbar region 60140640 Degenerati on of intervertebral disc 85249074 Diabetes mellitus 66283058 Lumbosacra l radiculitis 42045318 Shoulder joint pain 267535281 [id number] [facility] [address] [facility] [place] [address] 11/22/2014 11:25:34 11/23/2014 14:51:48 Spinal stenosis of lumbar region 97709368 Degenerati on of intervertebral disc 09732623 Diabetes mellitus 24452392 Lumbosacra l radiculitis 04923415 Shoulder joint pain 896518316 [id number] [facility] [address] [facility] [place] [address] 02/23/2015 11:44:55 02/28/2015 11:49:49 Spinal stenosis of lumbar region 25007228 Degenerati on of intervertebral disc 33672379 Diabetes mellitus 74597978 Lumbosacra l radiculitis 13144562 Shoulder joint pain 262392192 [id number] [facility] [address] [place] [address] 03/14/2015 09:26:00 03/14/2015 14:28:25 Spinal stenosis of lumbar region 22895327 Degenerati on of intervertebral disc 91323116 Diabetes mellitus 89239769 Lumbosacra l radiculitis 94053674 Shoulder joint pain 086074420 [id number] Partha Mike MD [facility] [address] [place] [address] 09/21/2015 08:46:34 09/21/2015 10:05:28 Spinal stenosis of lumbar region 78706569 M48.06 Degenerati on of intervertebral disc 27545927 M51.9 Diabetes mellitus 069068 09 E11.9 Lumbosacra l radiculitis 30775534 M54.17 Shoulder joint pain 2679 63601 M25.519 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 93927278 M47.816 [id number] Partha Mike MD [facility] [address] [place] [address] 09/28/2015 10:28:09 09/28/2015 13:50:48 Spinal stenosis of lumbar region 74055487 M48.06 Degenerati on of intervertebral disc 93246606 M51.17 M51.9 Diabetes mellitus 239729 09 E11.9 Lumbosacra l radiculitis 95590225 M54.17 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 33040792 M47.816 Shoulder joint pain 2679 13517 M25.511 M25.519 [id number] Partha Mike MD [facility] [address] [place] [address] 10/25/2015 11:19:24 10/26/2015 08:58:26 Spinal stenosis of lumbar region 19028320 M48.06 Degenerati on of intervertebral disc 61653808 M51.17 M51.9 Diabetes mellitus 714747 09 E11.9 Lumbosacra l radiculitis 78032245 M54.17 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 65703639 M47.816 Shoulder joint pain 2679 25583 M25.511 M25.519 [id number] Partha Mike MD [facility] [address] [place] [address] 10/26/2015 08:59:15 10/26/2015 11:09:06 Spondylosis without myelopathy 19862673 M47.816 Spinal deepika nosis of lumbar region 51303635 M48.06 Degenerati on of intervertebral disc 74604642 M51.17 M51.9 Diabetes mellitus 963629 09 E11.9 Lumbosacra l radiculitis 23156073 M54.17 Shoulder joint pain 2679 07721 M25.519 [id number] Partha Mike MD [facility] [address] [place] [address] 11/04/2015 09:01:41 11/04/2015 10:57:41 Spondylosis without myelopathy 33328658 M47.816 Spinal deepika nosis of lumbar region 55434408 M48.06 Degenerati on of intervertebral disc 72198160 M51.17 M51.9 Diabetes mellitus 493533 09 E11.9 Lumbosacra l radiculitis 61259511 M54.17 Shoulder joint pain 2679 17572 M25.511 Muscle pain 67293277 M79 .1 23576 Partha Mike MD [facility] [address] [place] [address] 11/10/2015 09:34:55 11/10/2015 14:03:07 Muscle pain 19618995 M79.1 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17 M51.9 Diabetes mellitus 181949 09 E11.9 Shoulder joint pain 2679 28411 M25.511 [id number] Partha Mike MD [facility] [address] [place] [address] 02/10/2016 09:04:14 02/10/2016 10:56:58 Spinal stenosis of lumbar region 11279584 M48.06 Degenerati on of intervertebral disc 85169501 M51.17 M51.9 Muscle pain 42117117 M79 .1 Diabetes mellitus 647801 09 E11.9 Lumbosacra l radiculitis 05960877 M54.17 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 27337806 M47.816 Shoulder joint pain 2679 02888 M25.511 M25.519 [id number] Partha Mike MD [facility] [address] [place] [address] 03/02/2016 08:42:55 03/04/2016 08:55:28 Spinal stenosis of lumbar region 24596976 M48.06 Degenerati on of intervertebral disc 24704586 M51.17 M51.9 Muscle pain 60514675 M79 .1 Diabetes mellitus 656537 09 E11.9 Lumbosacra l radiculitis 13811337 M54.17 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 34739174 M47.816 Shoulder joint pain 2679 47283 M25.511 M25.519 97139 Partha Mike MD [facility] [address] [place] [address] 03/06/2016 14:22:25 03/08/2016 13:51:55 Spondylosis without myelopathy 75354942 M47.816 Spinal deepika nosis of lumbar region 74766891 M48.06 Degenerati on of intervertebral disc 79282930 M51.17 M51.9 Muscle pain 60054701 M79 .1 Diabetes mellitus 895382 09 E11.9 Lumbosacra l radiculitis 35008439 M54.17 Shoulder joint pain 2679 48419 M25.511 M25.519 [id number] Partha Mike MD [facility] [address] [place] [address] 04/03/2016 09:43:41 04/03/2016 13:44:34 Spondylosis without myelopathy 78016853 M47.816 Degenerati on of intervertebral disc 19931165 M51.17 M51.9 Spinal deepika nosis of lumbar region 33478036 M48.06 Muscle pain 75721228 M79 .1 Diabetes mellitus 378398 09 E11.9 Lumbosacra l radiculitis 51255540 M54.17 Shoulder joint pain 2679 11153 M25.511 M25.519 [id number] Partha Mike MD [facility] [address] [place] [address] 05/04/2016 11:06:28 05/04/2016 15:53:59 Spondylosis without myelopathy 31159577 M47.816 Spinal deepika nosis of lumbar region 49315431 M48.06 Degenerati on of intervertebral disc 59961559 M51.17 M51.9 Muscle pain 24443686 M79 .1 Diabetes mellitus 142182 09 E11.9 Lumbosacra l radiculitis 94071530 M54.17 Shoulder joint pain 2679 65831 M25.511 M25.519 62662 Partha Mike MD [facility] [address] [place] [address] 05/22/2016 14:45:55 05/31/2016 13:21:25 Spondylosis without myelopathy 33259043 M47.816 Spinal deepika nosis of lumbar region 04445371 M48.06 Degenerati on of intervertebral disc 34438433 M51.17 M51.9 Muscle pain 12222286 M79 .1 Diabetes mellitus 601632 09 E11.9 Lumbosacra l radiculitis 22848890 M54.17 Shoulder joint pain 2679 68718 M25.511 M25.519 99728 Partha Mike MD [facility] [address] [place] [address] 06/18/2016 13:20:37 06/18/2016 20:15:12 Spinal stenosis of lumbar region 62389773 M48.06 Degenerati on of intervertebral disc 69454657 M51.17 M51.9 Diabetes mellitus 165848 09 E11.9 Lumbosacra l radiculitis 83909272 M54.17 Shoulder joint pain 2679 37835 M25.511 M25.519 [id number] Partha Mike MD [facility] [address] [place] [address] 07/04/2016 10:32:34 07/08/2016 10:58:02 Spinal stenosis of lumbar region 35211223 M48.06 Degenerati on of intervertebral disc 37297185 M51.17 M51.9 Diabetes mellitus 251529 09 E11.9 Lumbosacra l radiculitis 76599952 M54.17 Shoulder joint pain 2679 66367 M25.511 M25.519 [id number] Partha Mike MD [facility] [address] [place] [address] 10/15/2016 11:19:51 10/28/2016 19:56:56 Shoulder joint pain 956402062 M25.511 M25.512 Diabetes mellitus 342766 09 E11.9 Muscle pain 36621556 M79 .1 [id number] Partha Mike MD [facility] [address] [place] [address] 11/01/2016 09:40:43 11/01/2016 11:47:54 Spinal stenosis of lumbar region 37881171 M48.06 Degenerati on of intervertebral disc 89783991 M51.17 M51.9 Diabetes mellitus 945594 09 E11.9 Lumbosacra l radiculitis 65119579 M54.17 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 56905216 M47.816 Shoulder joint pain 2679 92148 M25.511 M25.519 [id number] Partha Mike MD [facility] [address] [place] [address] 11/08/2016 10:31:25 11/08/2016 12:00:00 Spinal stenosis of lumbar region 33935130 M48.06 Degenerati on of intervertebral disc 44597963 M51.17 M51.9 Diabetes mellitus 832253 09 E11.9 Lumbosacra l radiculitis 63755084 M54.17 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 67870513 M47.816 Shoulder joint pain 2679 33502 M25.511 M25.519 22899 Partha Mike MD [facility] [address] [place] [address] 12/10/2016 13:05:58 12/14/2016 09:38:18 Spinal stenosis of lumbar region 43596700 M48.06 Degenerati on of intervertebral disc 12706843 M51.17 M51.9 Diabetes mellitus 801905 09 E11.9 Lumbosacra l radiculitis 40221181 M54.17 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 09085918 M47.816 Shoulder joint pain 2679 49266 M25.511 M25.519 85650 Partha Mike MD [facility] [address] [place] [address] 01/28/2017 13:25:41 01/31/2017 16:32:23 Spinal stenosis of lumbar region 50644646 M48.06 Degenerati on of intervertebral disc 04581178 M51.17 M51.9 Diabetes mellitus 049120 09 E11.9 Lumbosacra l radiculitis 02643245 M54.17 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 18888147 M47.816 Shoulder joint pain 2679 51143 M25.511 M25.519 35719 Partha Mike MD [facility] [address] [place] [address] 02/19/2017 08:59:03 02/19/2017 16:04:37 Spinal stenosis of lumbar region 64708438 M48.06 Degenerati on of intervertebral disc 92139844 M51.17 M51.9 Diabetes mellitus 241329 09 E11.9 Lumbosacra l radiculitis 50574874 M54.17 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 00271754 M47.816 Shoulder joint pain 2679 20880 M25.511 M25.519 17203 Partha Mike MD [facility] [address] [place] [address] 04/03/2017 08:29:28 04/05/2017 11:42:54 Spinal stenosis of lumbar region 16952994 M48.06 Degenerati on of intervertebral disc 45629946 M51.17 M51.9 Muscle pain 54479051 M79 .1 Diabetes mellitus 437544 09 E11.9 Lumbosacra l radiculitis 73210998 M54.17 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 41688529 M47.816 Shoulder joint pain 2679 90492 M25.511 M25.519 97235 Partha Mike MD [facility] [address] [place] [address] 04/23/2017 14:01:21 04/24/2017 11:10:29 Spondylosis without myelopathy 99215623 M47.816 Spinal deepika nosis of lumbar region 65395562 M48.06 Degenerati on of intervertebral disc 21891327 M51.17 M51.9 Muscle pain 90704243 M79 .1 Diabetes mellitus 620534 09 E11.9 Lumbosacra l radiculitis 84775971 M54.17 Shoulder joint pain 2679 75046 M25.511 M25.519 28323 Partha Mike MD [facility] [address] [place] [address] 05/22/2017 14:27:24 06/03/2017 11:45:59 Spondylosis without myelopathy 70420884 M47.816 Spinal deepika nosis of lumbar region 92179675 M48.062 Degenerati on of intervertebral disc 18119369 M51.17 M51.9 Muscle pain 96686155 M79 .1 Diabetes mellitus 697867 09 E11.9 Lumbosacra l radiculitis 28356551 M54.17 Shoulder joint pain 2679 74636 M25.511 M25.519 13069 Partha Mike MD PA[facility] [address] [place] [address] 06/11/2017 14:41:01 06/16/2017 15:47:44 Spondylosis without myelopathy 49959861 M47.816 Spinal deepika nosis of lumbar region 34991150 M48.062 Degenerati on of intervertebral disc 45751296 M51.17 M51.9 Muscle pain 84327393 M79 .1 Diabetes mellitus 254340 09 E11.9 Lumbosacra l radiculitis 31181477 M54.17 Shoulder joint pain 2679 70685 M25.511 M25.519 18190 Partha Mike MD PAIN OFF[facility] [address] [place] [address] 07/22/2017 10:58:27 07/24/2017 15:55:08 Lumbosacral radiculitis 38359115 M54.17 Spinal deepika nosis of lumbar region 21297311 M48.062 Degenerati on of intervertebral disc 20794891 M51.17 M51.9 Diabetes mellitus 976259 09 E11.9 27517 Partha Mike MD [facility] [address] [place] [address] 08/02/2017 09:59:43 08/02/2017 11:37:37 Spondylosis without myelopathy 11958300 M47.816 Spinal deepika nosis of lumbar region 59799103 M48.062 Degenerati on of intervertebral disc 28874816 M51.17 M51.9 Muscle pain 09214634 M79 .1 Diabetes mellitus 969254 09 E11.9 Lumbosacra l radiculitis 16997327 M54.17 Shoulder joint pain 2679 05499 M25.511 M25.519 20703 Partha Mike MD [facility] [address] [place] [address] 12/19/2017 14:28:38 12/19/2017 15:54:30 Spinal stenosis of lumbar region 86695321 M48.062 Degenerati on of intervertebral disc 66646511 M51.17 M51.9 Diabetes mellitus 588285 09 E11.9 Lumbosacra l radiculitis 63053868 M54.17 Shoulder joint pain 2679 42877 M25.511 M25.519 89649 Partha Mike MD [facility] [address] [place] [address] 01/08/2018 11:03:45 01/09/2018 14:15:32 Spinal stenosis of lumbar region 58858190 M48.062 Degenerati on of intervertebral disc 92218816 M51.17 M51.9 Diabetes mellitus 484665 09 E11.9 Lumbosacra l radiculitis 06137983 M54.17 Shoulder joint pain 2679 81190 M25.511 M25.519 [address] Partha Mike MD PAIN OFFICE [address] [place] [address] 05/28/2018 09:58:40 05/28/2018 15:27:55 Spinal stenosis of lumbar region 94175551 M48.062 Degenerati on of intervertebral disc 60630027 M51.17 M51.9 Diabetes mellitus 075495 09 E11.9 Lumbosacra l radiculitis 90937812 M54.17 Shoulder joint pain 2679 63415 M25.511 M25.519 76479 Partha Mike MD PAIN OFFICE [address] [place] [address] 10/20/2018 11:37:41 10/20/2018 13:56:50 Spinal stenosis of lumbar region 35769125 M48.062 Degenerati on of intervertebral disc 69287976 M51.17 M51.9 Diabetes mellitus 685291 09 E11.9 Lumbosacra l radiculitis 95797720 M54.17 Shoulder joint pain 2679 87011 M25.511 M25.519 78897 Partha Mike MD PAIN OFFICE [address] [place] [address] [place] [address] 12/09/2018 09:04:43 12/10/2018 10:50:34 Spinal stenosis of lumbar region 35710697 M48.062 Degenerati on of intervertebral disc 43198639 M51.17 M51.9 Diabetes mellitus 744799 09 E11.9 Lumbosacra l radiculitis 81817544 M54.17 Shoulder joint pain 2679 27742 M25.511 M25.519 63646 Partha Mike MD PAIN OFFICE [address] [facility] [place] [place] [address] 03/10/2019 09:36:54 03/11/2019 13:42:01 Spinal stenosis of lumbar region 15059382 M48.062 Degenerati on of intervertebral disc 08239006 M51.17 M51.9 Diabetes mellitus 994600 09 E11.9 Lumbosacra l radiculitis 22149348 M54.17 Shoulder joint pain 2679 29242 M25.511 M25.519 Muscle pain 03597035 M79 .18 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 07331927 M47.816 36647 Partha Mike MD PAIN OFFICE [address] [facility] [place] [place] [address] 06/03/2019 08:17:28 06/05/2019 15:46:22 Spinal stenosis of lumbar region 10356065 M48.062 Degenerati on of intervertebral disc 58186397 M51.17 M51.9 Diabetes mellitus 388705 09 E11.9 Lumbosacra l radiculitis 02542729 M54.17 Shoulder joint pain 2679 60353 M25.511 M25.519 Muscle pain 32476882 M79 .18 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 75653621 M47.816 51241 Partha Mike MD PAIN OFFICE [address] [facility] [place] [place] [address] 09/01/2019 13:03:14 09/08/2019 10:49:39 Spinal stenosis of lumbar region 18574113 M48.062 Degenerati on of intervertebral disc 55595212 M51.17 M51.9 Diabetes mellitus 316524 09 E11.9 Lumbosacra l radiculitis 30267977 M54.17 Shoulder joint pain 2679 81611 M25.511 M25.519 Muscle pain 22909774 M79 .18 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 12060112 M47.816 10347 Partha Mike MD PAIN OFFICE [address] [facility] [place] [address] 09/17/2019 10:01:22 09/18/2019 16:23:35 Shoulder joint pain 556450441 M25.511 M25.519 96874 Partha Mike MD PAIN OFFICE [address] [facility] [place] [address] 12/28/2019 11:05:53 01/12/2020 12:30:52 Spinal stenosis of lumbar region 37425065 M48.062 Degenerati on of intervertebral disc 50854714 M51.17 M51.9 Diabetes mellitus 235786 09 E11.9 Lumbosacra l radiculitis 48873680 M54.17 Shoulder joint pain 2679 26580 M25.511 M25.519 05334 Partha Mike MD PAIN OFFICE [address] [facility] [place] [address] 01/12/2020 13:27:29 01/14/2020 10:17:33 Spinal stenosis of lumbar region 43406925 M48.062 Degenerati on of intervertebral disc 10424079 M51.17 M51.9 Diabetes mellitus 916649 09 E11.9 Lumbosacra l radiculitis 50234182 M54.17 Shoulder joint pain 2679 18781 M25.511 M25.519 Muscle pain 92660785 M79 .18 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 89942142 M47.816 79859 Partha Mike MD PAIN OFFICE [address] [facility] [place] [address] 02/12/2020 10:33:05 02/12/2020 12:16:21 Degeneration of intervertebral disc 86143482 M51.17 M51.9 Diabetes mellitus 071548 09 E11.9 Lumbosacra l radiculitis 02159067 M54.17 Muscle pain 01892281 M79 .18 Spinal deepika nosis of lumbar region 69974083 M48.062 16432 Partha Mike MD PAIN OFFICE [address] [place] [address] 04/19/2020 11:04:03 04/19/2020 16:28:26 Spinal stenosis of lumbar region 28763098 M48.062 Degenerati on of intervertebral disc 09588933 M51.17 M51.9 Diabetes mellitus 844493 09 E11.9 Lumbosacra l radiculitis 00291363 M54.17 Shoulder joint pain 2679 35962 M25.511 M25.519 Muscle pain 83977704 M79 .18 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 73615001 M47.816 32791 Partha Mike MD PAIN OFFICE [address] [place] [address] 07/12/2020 11:35:48 07/12/2020 16:22:01 Spinal stenosis of lumbar region 08989204 M48.062 Degenerati on of intervertebral disc 07076061 M51.17 M51.9 Diabetes mellitus 817653 09 E11.9 Lumbosacra l radiculitis 38823912 M54.17 Shoulder joint pain 2679 21754 M25.511 M25.519 Muscle pain 10167369 M79 .18 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 66654496 M47.816 64852 Partha Mike MD PAIN OFFICE [address] [place] [address] 10/04/2020 11:41:18 10/05/2020 14:19:50 Spinal stenosis of lumbar region 60339997 M48.062 Degenerati on of intervertebral disc 77977154 M51.17 M51.9 Diabetes mellitus 515094 09 E11.9 Lumbosacra l radiculitis 55682709 M54.17 Shoulder joint pain 2679 72226 M25.511 M25.519 Muscle pain 89314258 M79 .18 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 50306385 M47.816 48499 Partha Mike MD SV PAIN OFFICE [address] [place] [address] 01/03/2021 10:40:29 01/03/2021 15:47:46 Spinal stenosis of lumbar region 11423197 M48.062 Degenerati on of intervertebral disc 40136631 M51.17 M51.9 Diabetes mellitus 341219 09 E11.9 Lumbosacra l radiculitis 19689242 M54.17 Shoulder joint pain 2679 93089 M25.511 M25.519 Muscle pain 38182713 M79 .18 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 60462287 M47.816 45650 Partha Mike MD SV PAIN OFFICE [address] [place] [address] 03/31/2021 11:22:58 04/03/2021 08:59:53 Spondylosis without myelopathy 94496496 M47.816 Spinal deepika nosis of lumbar region 52460493 M48.062 Degenerati on of intervertebral disc 84076016 M51.17 M51.9 Muscle pain 99378766 M79 .18 Diabetes mellitus 728691 09 E11.9 Lumbosacra l radiculitis 43596700 M54.17 Shoulder joint pain 2679 78559 M25.511 M25.519 06200 Partha Mike MD PAIN OFFICE [address] [facility] [place] [address] 04/18/2021 10:28:27 04/18/2021 13:46:52 Spinal stenosis of lumbar region 25372988 M48.062 Degenerati on of intervertebral disc 07503261 M51.17 M51.9 Diabetes mellitus 151045 09 E11.9 Lumbosacra l radiculitis 75530088 M54.17 Shoulder joint pain 2679 58499 M25.511 M25.519 Muscle pain 61235098 M79 .18 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 77582260 M47.816 42077 Partha Mike MD PAIN OFFICE [address] [place] [address] 07/25/2021 10:05:25 07/25/2021 15:04:09 Spinal stenosis of lumbar region 34787278 M48.062 Degenerati on of intervertebral disc 27601411 M51.17 M51.9 Diabetes mellitus 067201 09 E11.9 Lumbosacra l radiculitis 25481711 M54.17 Shoulder joint pain 2679 77858 M25.511 M25.519 Muscle pain 96517911 M79 .18 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 05542109 M47.816 75135 Partha Mike MD SV PAIN OFFICE [address] [place] [address] 10/03/2021 11:29:19 10/03/2021 14:14:03 Diabetes mellitus 70011698 E11.9 Lumbar post-laminectomy syndrome 738207226 M96.1 Inflammati on of sacroiliac joint 57805582 M46.1 85336 Partha Mike MD SV PAIN OFFICE [address] [place] [address] 10/04/2021 10:35:06 10/04/2021 16:23:26 Diabetes mellitus 00383616 E11.9 Lumbar post-laminectomy syndrome 963870388 M96.1 Inflammati on of sacroiliac joint 68262854 M46.1 03505 Partha Mike MD SV PAIN OFFICE [address] [place] [address] 10/30/2021 09:25:15 10/30/2021 09:31:03 Diabetes mellitus 86182042 E11.9 Lumbar post-laminectomy syndrome 698468464 M96.1 Inflammati on of sacroiliac joint 36384198 M46.1 95548 Partha Mike MD SV PAIN OFFICE [address] [place] [address] 01/02/2022 15:17:13 01/02/2022 16:35:15 Spinal stenosis of lumbar region 02770635 M48.062 Degenerati on of intervertebral disc 16893331 M51.17 M51.9 Diabetes mellitus 357900 09 E11.9 Lumbosacra l radiculitis 92057925 M54.17 Shoulder joint pain 2679 96081 M25.511 M25.519 Muscle pain 29869945 M79 .18 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 61800661 M47.816 25018 Partha Mike MD PAIN OFFICE [address] [place] [address] 04/25/2022 10:05:34 04/25/2022 10:54:23 Lumbosacral radiculopathy 0614028 M54.17 Degenerati on of lumbar intervertebral disc 24158430 M51.36 87365 Partha Mike MD PAIN OFFICE [address] [place] [address] 07/31/2022 12:59:02 07/31/2022 13:28:12 Lumbosacral radiculopathy 2931016 M54.17 Degenerati on of lumbar intervertebral disc 08734720 M51.36 70299 Partha Mike MD PAIN OFFICE [address] [place] [address] 10/23/2022 14:25:44 10/24/2022 09:29:06 Lumbosacral radiculitis 69376261 M54.17 Lumbosacra l radiculopathy 3738859 M54.17 Degenerati on of lumbar intervertebral disc 04412971 M51.36 85311 Partha Mike MD PAIN OFFICE [address] [employer] [place] [address] 01/08/2023 14:34:27 01/08/2023 16:27:27 Lumbosacral radiculopathy 0824423 M54.17 Degenerati on of lumbar intervertebral disc 31213188 M51.36 86611 Partha Mike MD PAIN OFFICE [address] [place] [address] 06/12/2023 14:08:28 06/12/2023 15:59:40 Spinal stenosis of lumbar region 50881711 M48.062 Lumbosacra l radiculopathy 4177530 M54.17 Degenerati on of lumbar intervertebral disc 93322288 M51.36 08701 Partha Mike MD SV PAIN OFFICE [address] [employer] [address] [facility] [place] [place] [address] 11/05/2023 10:51:33 11/05/2023 12:02:11 Lumbosacral radiculitis 93600530 M54.17 Lumbosacra l radiculopathy 5660191 M54.17 Degenerati on of lumbar intervertebral disc 70999664 M51.36 Lumbar post-laminectomy syndrome 352754288 M96.1 71438 Partha Mike MD SV PAIN OFFICE [address] [facility] [place] [place] [address] 12/04/2023 12:58:53 12/04/2023 14:55:08 Spinal stenosis of lumbar region 41315613 M48.062 Lumbosacra l radiculopathy 8975486 M54.17 Degenerati on of lumbar intervertebral disc 47365409 M51.36 22494 Partha Mike MD PAIN OFFICE [address] [facility] [place] [place] [address] 03/05/2024 11:00:26 03/05/2024 13:23:09 Spinal stenosis of lumbar region 38464044 M48.062 Lumbosacra l radiculitis 50380749 M54.17 Lumbosacra l radiculopathy 0473851 M54.17 Degenerati on of lumbar intervertebral disc 84161858 M51.36 Lumbar post-laminectomy syndrome 476771274 M96.1 38734 Partha Mike MD SV PAIN OFFICE [address] [facility] [place] [place] [address] 03/24/2024 11:06:25 03/24/2024 11:33:08 Spinal stenosis of lumbar region 86133630 M48.062 Lumbosacra l radiculopathy 3863831 M54.17 Degenerati on of lumbar intervertebral disc 98174797 M51.36 70617 Partha Mike MD PAIN OFFICE [address] [facility] [place] [place] [address] 06/26/2024 10:56:44 06/26/2024 11:28:46 Spinal stenosis of lumbar region 43056492 M48.062 Lumbosacra l radiculitis 49670388 M54.17 Lumbosacra l radiculopathy 1523932 M54.17 Degenerati on of lumbar intervertebral disc 70806726 M51.362 Lumbar post-laminectomy syndrome 139584516 M96.1 51979 Partha Mike MD PAIN OFFICE [address] [employer] [facility] [address] [place] [address] 07/15/2024 08:21:12 07/15/2024 11:16:14 Spinal stenosis of lumbar region 63107300 M48.062 Lumbosacra l radiculopathy 5912798 M54.17 Degenerati on of lumbar intervertebral disc 62056524 M51.362 Health Concerns Section Related Observation LastModified by Organization Detai ls LastModified Time None Recorded Concern Status LastModified by Organization Details LastModified Time None Recorded Advance Directives Directive None Recorded Payers Encounter Date Sequence Insurance Name Policy Number Policy Honeycutt Covered Member ID Honeycutt Member ID Guarantor Name 12/04/2023 1 [employer] (PPO) [id number] Cole Taylor [id number] Cole Taylor 03/05/2024 1 [employer] (PP[employer]) [id number] Cole Taylor [id number] Cole Taylor 03/24/2024 1 [employer] (PP[employer]) [id number] Cole Taylor [id number] Cole Taylor 06/26/2024 1 [employer] (PPO) [id number] Cole Taylor [id number] Cole aTylor 07/15/2024 1 [employer] (PPO) [id number] Cole Taylor [id number] Cole Taylor Notes Date Note Type Note Provider Name and Address Organization Details Recorded Time 12/04/2023 text/html He is here for a repeat lumbar epidural steroid injection under fluoroscopic guidance. Partha Mike MD [address] , [address], [place], [address], [facility] Pain Management 12/04/2023 15:11:41 03/05/2024 text/html Cole Taylor is a 73 year old man with complaints of low back pain radiating into left lower extremity. The pain started about 6 months ago. He states he has been having low back pain for the past 30 years. He is S/P back surgery with persistent pain. He started to have severe pain radiating into left lower extremity. He describes the pain as a shooting pain , sharp from his left buttock region to the left leg with numbness, tingling and weakness in his left lower extremity. He has pain radiating into his right leg occasionally. Current pain level is 5-10/10. Pain is aggravated by standing and walking . Pain is relieved a little with application of heat. He has no history of bladder or bowel incontinence.MRI Lumbar spine done on 11/2022 shows Multiple levels of lumbar spondylosis . Especially L5-S1 level has severe left neuro foramen narrowing with left L5 nerve compressionHe has trialed physical therapy at the in [place] with some pain benefit. He has recently joined the for a gym membership and is doing aquatic exercises.He has a lumbar epidural steroid injection on 12/04/2023. He reports 90% pain benefit for three months with a return of pain back to baseline. He states he was more active after the injection and was doing work around the house . Partha Mike MD [address] [facility] , [address], [place], [address], [facility] Pain Management 03/16/2024 10:43:39 03/24/2024 text/html He is here for a repeat lumbar epidural steroid injection under fluoroscopic guidance. Partha Mike MD [address] [facility] , [address], [place], [address], [facility] - Pain Management 03/24/2024 11:36:06 06/26/2024 text/html Cole Taylor is a 73 year old man with complaints of low back pain radiating into left lower extremity. The pain started about 6 months ago. He states he has been having low back pain for the past 30 years. He is S/P back surgery with persistent pain. He started to have severe pain radiating into left lower extremity. He describes the pain as a shooting pain , sharp from his left buttock region to the left leg with numbness, tingling and weakness in his left lower extremity. He has pain radiating into his right leg occasionally. Current pain level is 5-10/10. Pain is aggravated by standing and walking . Pain is relieved a little with application of heat. He has no history of bladder or bowel incontinence.MRI Lumbar spine done on 11/2022 shows Multiple levels of lumbar spondylosis . Especially L5-S1 level has severe left neuro foramen narrowing with left L5 nerve compressionHe has trialed physical therapy at the in [place] with some pain benefit. He has recently joined the for a gym membership and is doing aquatic exercises.He has a lumbar epidural steroid injection on 03/24/2024. He reports 90% pain benefit for three months with a return of pain back to baseline. He states he was more active after the injection and was doing work around the house . Partha Mike MD [address] [facility] , [address], [place], [address], [place] - [place] Management 06/29/2024 14:20:49 07/15/2024 text/html He is here for a repeat lumbar epidural steroid injection under fluoroscopic guidance. Partha Mike MD [address] [facility] , [address], [place], [address], [place] - [facility] 07/15/2024 11:23:42
== END 2024-09-22 12:51 | disposition home or self-care (01) ==
PROVIDERS: PCP Internal Medicine; Visit Provider Urology
DX: E11.69 Type 2 diabetes mellitus with other specified complication (principal); N52.1 Erectile dysfunction due to diseases classified elsewhere; R68.82 Decreased libido; Z13.9 Encounter for screening, unspecified
CPT/HCPCS: 99214

== ENCOUNTER → 2024-09-22 10:28 | Outpatient (BNVA) | payer MEDICARE, SELFPAY | PROVIDERS: PCP Internal Medicine; Visit Provider Urology ==

== ENCOUNTER 2024-09-22 12:33 | Outpatient (REF) | payer MEDICARE, SELFPAY ==
[2024-09-24 20:59] LABS: Lutenizing Hormone 5.3 mIU/mL (1.6-15.2)
[2024-09-28 23:24] LABS: Testosterone, Free 33.3 pg/mL (30.0-135.0); Testosterone, Total 266 ng/dL (250-1100)
== END 2024-09-22 12:34 | disposition home or self-care (01) ==
LOC: HO.10HDL 12:33
PROVIDERS: Visit Provider Urology
DX: E11.69 Type 2 diabetes mellitus with other specified complication (principal); N52.1 Erectile dysfunction due to diseases classified elsewhere; R68.82 Decreased libido
CPT/HCPCS: 36415; 81003; 83002; 84402; 84403; 99212

== ENCOUNTER 2024-11-25 10:01 | Outpatient (AMB) | payer MEDICARE, SELFPAY ==
--- NOTE | 2024-11-25 10:06 | MHC.OFFVIS ---
Vital Signs 11/25/24 10:13 Height 5 ft 9 in Weight 286 lb 9.615 oz BMI 42.3 BP 146/68 H Blood Pressure Location Rt brachial Position Sitting Pulse 77 Intake Visit Reasons: Colonoscopy screening Intake Note: New patient in office today for colonoscopy screening. CC: Patient reports that his last colonoscopy was done in [place] and a polyp was found. Potato Pancake Frier Required: No Accompanied by: Self / Same As Patient Allergies ibuprofen [From ADVIL] Allergy (Unknown, Verified 11/25/24 10:29) ? LETHARGY pregabalin [From LYRICA] Allergy (Unknown, Verified 11/25/24 10:29) SKIN CRAWL Medication List - Last Reviewed 11/25/24 by DAVIAN Glass aspirin (Adult Aspirin Regimen) 81 mg PO DAILY bisacodyl (Dulcolax (bisacodyl)) 10 mg (2 x 5 mg) PO BEDTIME 2 days carvedilol 25 mg PO BID diclofenac sodium 1% (Arthritis Pain (diclofenac)) 2 grams topical QID famotidine (Acid Stitching Machine Operator (famotidine)) 20 mg PO BID felodipine ER 10 mg PO DAILY gabapentin 900 mg PO TID meloxicam 15 mg PO DAILY PRN metformin 500 mg PO TID pravastatin 40 mg PO DAILY sertraline mg PO spironolactone 25 mg PO DAILY tizanidine 4 mg PO BEDTIME PRN HPI HPI Colonoscopy screening: Details: 73-year-old male here for initial evaluation of hemorrhoids. He is referred by [facility]. PMX ABIMAEL Morbid obesity Diabetes Hypertension High cholesterol BPH Vertigo Depression Chronic low back pain Chronic opioid therapy Spinal stenosis lumbar GERD Gout * SURGICAL HISTORY Appendectomy Colonoscopy-2020 [facility]= HYPERPLASTIC POLYP L4-L5 hemilaminectomy * ALLERGIES: Advil as it relates to blood pressure Pregabalin * [facility]ct[facility] LABS: none in our system TODAY'S VISIT This will be his 2nd or 3rd colonoscopy. The 1st when he thought he had polyps but we do not know what kind the 2nd 1 was at [facility] hernia hyperplastic polyps. He does not know his family history of colon cancer. He has GERD that is well controlled on his current regimen will famotidine, he suffers constipation but this is well controlled with increasing the fiber in his diet and things such as Raisin bran note meal. He has a obstructive sleep apnea but no other respiratory problems and denies any cardiac problems. There are no prior problems with anesthesia or sedation. There are no infectious disease problems. He had recent ablation therapy for hemorrhoids. [facility] Medical History (Updated 11/25/24 @ 11:20 by LEAH Hayes) Chronic, continuous use of opioids Surgical History History of hemilaminectomy H/O colonoscopy Hx of appendectomy Family History Father Esophageal cancer Paternal Uncle Cancer Social History Alcohol intake: current Patient Tobacco Use Status: Never used Tobacco Use of substances other than those prescribed or required for medical reasons: No Review of Systems Const Denies fatigue, Denies fever(s), Denies night sweats, Denies poor appetite and Denies weight loss ENT Reports Normal hearing present, Denies dental pain, Denies dysphagia, Denies hearing loss, Denies mouth pain, Denies odynophagia, Denies throat swelling, Denies tongue swelling and Reports other (Dentition adequate) Card Reports no additional complaints Resp Reports no additional complaints GI Details: Denies abdominal pain, Denies melena, Denies bloating, Denies hematochezia, Reports constipation, Denies GI cramping, Denies dysphagia, Denies excessive flatus, Denies early satiety, Reports heartburn, Denies diarrhea, Denies nausea, Denies odynophagia, Denies vomiting and Denies hematemesis Skin/Breast Denies pruritus, Denies lesions, Denies rash and Denies jaundice Neuro Reports Normal hearing present and Denies Abnormal speech present Endo Denies fatigue Aller/Immun Denies throat swelling and Denies tongue swelling Physical Exam Vital Signs: Last Vital Signs Pulse 77 11/25/24 10:13 BP 146/68 H 11/25/24 10:13 BMI result Body Mass Index 42.3 Const General: cooperative, no acute distress, well developed and well groomed Nutritional Appearance: obese centrally obese Limitations: No language barrier HEENT Head: Yes normal to inspection, Yes normocephalic and Yes atraumatic Face and sinus: Yes normal facial exam Eyes General: appearance normal, both eyes and all related structures Pupils: Equal, round and reactive pupils present Neck Neck: Yes normal visual inspection and Yes full ROM Thyroid: Thyroid normal Resp Effort & Inspection: normal respiratory effort, able to speak in complete sentences, no tracheal deviation and symmetric chest movement Auscultation: clear to auscultation bilaterally Cardio Jugular venous distension: no JVD Rate: regular rate Rhythm: regular rhythm Heart sounds: S1 normal heart sound present, S2 normal heart sound present, no gallops and no murmurs Peripheral pulses: radial pulses present and posterior tibial pulses present GI Inspection: Yes normal to inspection, No distended and Yes obesity Palpation (GI): Soft to palpation, not firm, nontender and No hepatosplenomegaly present Auscultation: normal bowel sounds Rectal Exam - Male: Yes deferred Skin General skin exam: no rashes or lesions noted, turgor normal, skin not dry, no jaundice, No spider nevi and no striae Rashes: no rashes Nails: normal Neuro Cranial nerves: Yes Equal, round and reactive pupils present and Yes Normal hearing present Speech: No Abnormal speech present Gait exam (Neuro): Normal gait present and Assistive device used Extrem General: Yes normal to inspection, No clubbing, No cyanosis and No edema Psych Appearance: grossly normal Mental Status: mental status grossly normal Speech and movement: Normal speech and movement present Affect: normal affect Attitude: cooperative Thought process: Normal thought process present Thought content: Normal thought content present Insight: Good insight present (Psych) Judgement: Good judgement present (Psych) Assessment & Plan Assessment & Plan (1) ABIMAEL (obstructive sleep apnea): Code(s): G47.33 - Obstructive sleep apnea (adult) (pediatric) Category: Medical (2) Morbid obesity: Code(s): E66.01 - Morbid (severe) obesity due to excess calories Category: Medical (3) Pre-op examination: Code(s): Z01.818 - Encounter for other preprocedural examination Category: Medical Plan This will be his 2nd or 3rd colonoscopy. The 1st when he thought he had polyps but we do not know what kind the 2nd 1 was at [facility] hernia hyperplastic polyps. He does not know his family history of colon cancer. He has GERD that is well controlled on his current regimen will famotidine, he suffers constipation but this is well controlled with increasing the fiber in his diet and things such as Raisin bran note meal. He has a obstructive sleep apnea but no other respiratory problems and denies any cardiac problems. There are no prior problems with anesthesia or sedation. There are no infectious disease problems. He had recent ablation therapy for hemorrhoids. Orders: Orders Complete Blood Count Auto Diff Today E66.01 - Morbid (severe) obesity due to excess calories, G47.33 - Obstructive sleep apnea (adult) (pediatric), Z01.818 - Encounter for other preprocedural examination Colonoscopy - GI Use Only Today E66.01 - Morbid (severe) obesity due to excess calories, G47.33 - Obstructive sleep apnea (adult) (pediatric), Z01.818 - Encounter for other preprocedural examination Comprehensive Met. Panel Today E66.01 - Morbid (severe) obesity due to excess calories, G47.33 - Obstructive sleep apnea (adult) (pediatric), Z01.818 - Encounter for other preprocedural examination Medications: New bisacodyl (Dulcolax (bisacodyl)) 10 mg (2 x 5 mg) PO BEDTIME 4 tabs 0RF 2 days Coding Level of Care Code New Pt Level 3 (35797) Diagnoses ABIMAEL (obstructive sleep apnea) G47.33 Morbid obesity E66.01 Pre-op examination Z01.818
[2024-11-25 10:13] VITALS: BP 146/68; PULSE 77; BMI 42.3
--- OUTSIDE RECORDS SUMMARY | 2024-11-25 11:32 | XMS_ITS | Data Portability ---
Author Organization [facility] Address [address] [facility],[address] [place] [address] Care Team Providers Care Nursing Program Manager Name Role Phone EZIO DONALDSON Primary Care Provider [phone] JIMBO CLAROS Referring Provider [phone] Assessment Encounter Date Assessment Date Assessment LastModified by Organization Details LastModified Time 03/05/2024 03/05/2024 Cole Taylor is a 73 [...] to contact his PCP. [email or web address] Not available 03/05/2024 11:40:30 03/24/2024 03/24/2024 Cole [...] to contact his PCP. oliverio Not available 07/15/2024 08:57:12 10/16/2024 10/16/2024 Cole Taylor is a 73 year old [...] to contact his PCP. [email or web address] Not available 10/16/2024 10:30:15 Plan of Treatment Reminders Order Date Submit Date Provider Last Modified By Organization Details Last Modified Time Details Appointments PROCEDURE 2024 09:00A M Partha schmidt MD Not available Not available Not available Lab None recorded. Referral None recorded. Procedures None recorded. Surgeries None recorded. Imaging None recorded. Medication Orders None recorded. Patient TargetsNo targets recorded. Patient Instructions Encounter Date Encounter Id Patient Instructions Last Modified By Organization Details Last Modified Time 03/05/2024 [id number] He was advised against bed rest lasting longer than four days and to continue activities as tolerated. [email or web address] Not available 03/05/2024 11:40:33 03/24/2024 [id number] He was advised against bed rest lasting longer than four days and to continue activities as tolerated. [email or web address] Not available 03/24/2024 11:30:26 06/26/2024 [id number] He was advised against bed rest lasting longer than four days and to continue activities as tolerated. [email or web address] Not available 06/26/2024 11:25:03 07/15/2024 [id number] He was advised against bed rest lasting longer than four days and to continue activities as tolerated. [email or web address] Not available 07/15/2024 08:57:20 10/16/2024 [id number] He was advised against bed rest lasting longer than four days and to continue activities as tolerated. [email or web address] Not available 10/16/2024 10:30:19 Reason for Referral None Reported. Problems Name Problem SNOMED Code Status Onset Date Resolution Date Notes Provider Name and Address Organization Details Recorded Time Spondylosis without myelopathy [id number] Justin schmidt MD [address] , [address], [place], [address], [place] [facility] 6 13:41:20 Muscle pain 83812306 Justin schmidt MD [address] , [address], [place], [address], [place] [facility] 6 13:41:20 Spinal stenosis of lumbar region 67949914 Justin schmidt MD [address] , [address], [place], [address], [place] [facility] 6 13:41:20 Lumbosacral radiculitis 70869566 Justin schmidt MD [address] , [address], [place], [address], [place] [facility] 6 13:41:20 Pseudoclaud ication syndrome Completed 06/24/2013 Partha schmidt MD [address] , [address], [place], [address], [place] [facility] 6 13:37:56 Diabetes mellitus 64802148 Justin schmidt MD [address] , [address], [place], [address], [place] [facility] 6 13:41:20 Shoulder joint pain [id number] Justin schmidt MD [address] , [address], [place], [address], [place] [facility] 6 13:41:20 Degeneratio n of interverteb ral disc 12991718 Justin schmidt MD [address] , [address], [place], [address], [place] [facility] 13:41:20 Problem Notes None recorded. Procedures Surgical History Date Name Laterality Status Provider Name and Address Organization Details Recorded Time 07/15/20 24 Lumbar Epidural steroid injection under fluoroscopic guidance completed Partha Mike MD [address] , [address], [place], [address], [place] [facility] 07/15/2024 08:57:51 03/24/20 24 Lumbar Epidural steroid injection under fluoroscopic guidance completed Partha Mike MD [address] , [address], [place], [address], [place] [facility] 03/24/2024 11:30:56 12/04/19 24 Lumbar Epidural steroid injection under fluoroscopic guidance completed MD Suhail Wagner [address] [facility] , [address], [place], [address], [place] [facility] 12/04/2023 13:40:41 06/12/20 23 Lumbar Epidural steroid injection under fluoroscopic guidance completed Partha Mike MD [address] , [address], [place], [address], [place] [facility] 06/12/2023 15:01:20 01/09/20 23 Lumbar Epidural steroid injection under fluoroscopic guidance completed Partha Mike MD [address] [facility] , [address], [place], [address], [place] [facility] 01/08/2023 15:00:42 10/23/19 23 Lumbar Epidural steroid injection under fluoroscopic guidance completed MD Suhail Wagner [address] [facility] , [address], [place], [address], [place] [facility] 10/23/2022 15:03:01 07/31/20 22 Lumbar Epidural steroid injection under fluoroscopic guidance completed Partha Mike MD [address] [facility] , [address], [place], [address], [place] [facility] 07/31/2022 13:25:34 04/25/20 22 Lumbar Epidural steroid injection under fluoroscopic guidance completed Partha Mike MD [address] [facility] , [address], [place], [address], [place] [facility] 04/25/2022 10:35:19 01/03/20 22 Lumbar Epidural steroid injection under fluoroscopic guidance completed Partha Mike MD [address] [facility] , [address], [place], [address], [place] [facility] 01/02/2022 16:29:21 10/04/19 22 Sacroiliac Joint Steroid Injections, using Fluoroscopy completed Partha Mike MD [address] [facility] , [address], [place], [address], [place] [facility] 10/04/2021 10:59:56 07/25/20 21 Lumbar Epidural steroid injection under fluoroscopic guidance completed Partha Mike MD [address] [facility] , [address], [place], [address], [place] [facility] 07/25/2021 10:59:40 04/18/20 21 Lumbar Epidural steroid injection under fluoroscopic guidance completed Partha Mike MD [address] [facility] , [address], [place], [address], [place] [facility] 04/18/2021 10:57:10 01/04/20 21 Lumbar Epidural steroid injection under fluoroscopic guidance completed Partha Mike MD [address] [facility] , [address], [place], [address], [place] [facility] 01/03/2021 15:21:58 10/04/19 21 Lumbar Epidural steroid injection under fluoroscopic guidance completed Partha Mike MD [address] [facility] , [address], [place], [address], [place] [facility] 10/05/2020 14:16:42 07/12/20 20 Lumbar Epidural steroid injection under fluoroscopic guidance completed Partha Mike MD [address] [facility] , [address], [place], [address], [place] [facility] 07/12/2020 15:12:10 04/19/20 20 Lumbar Epidural steroid injection under fluoroscopic guidance completed Partha Mike MD [address] [facility] , [address], [place], [address], [place] [facility] 04/19/2020 11:32:47 01/12/20 20 Lumbar Epidural steroid injection under fluoroscopic guidance completed Partha Mike MD [address] , [address], [place], [address], [place] [facility] 01/14/2020 09:58:10 09/01/19 20 Lumbar Epidural steroid injection under fluoroscopic guidance completed Partha Mike MD [address] , [address], [place], [address], [place] [facility] 09/08/2019 09:56:16 06/03/20 19 Lumbar Epidural steroid injection under fluoroscopic guidance completed Partha Mike MD [address] [facility] , [address], [place], [address], [place] [facility] 06/05/2019 15:43:58 03/10/20 19 Lumbar Epidural steroid injection under fluoroscopic guidance completed Partha Mike MD [address] [facility] , [address], [place], [address], [place] [facility] 03/11/2019 13:37:47 12/10/19 19 Lumbar Epidural steroid injection under fluoroscopic guidance completed Partha Mike MD [address] [facility] , [address], [place], [address], [place] [facility] 12/10/2018 10:47:26 05/28/20 18 Lumbar Epidural steroid injection under fluoroscopic guidance completed Partha Mike MD [address] [facility] , [address], [place], [address], [place] [facility] 05/28/2018 14:21:58 01/09/20 18 Lumbar Epidural steroid injection under fluoroscopic guidance completed Partha Mike MD [address] , [address], [place], [address], [place] [facility] 01/09/2018 14:13:45 06/11/20 17 Radiofrequency of Lumbar/Sacral medial branches supplying the facets under fluoroscopic guidance completed Partha Mike MD [address] , [address], [place], [address], [place] [facility] 06/14/2017 14:37:54 04/23/20 17 Fluoroscopic Guided Lumbar Facet Steroid Injections of levels completed Partha Mike MD [address] , [address], [place], [address], [place] [facility] 04/24/2017 10:38:56 02/20/20 17 Fluoroscopic Guided Lumbar Facet Steroid Injections of levels completed Partha Mike MD [address] , [address], [place], [address], [place] [facility] 02/19/2017 15:04:05 11/09/19 17 Fluoroscopic Guided Lumbar Facet Steroid Injections of levels completed Partha Mike MD [address] , [address], [place], [address], [place] [facility] 11/08/2016 11:54:16 07/04/20 16 Lumbar Epidural steroid injection under fluoroscopic guidance completed Partha Mike MD [address] , [address], [place], [address], [place] [facility] 07/09/2016 14:02:15 05/22/20 16 Radiofrequency of Lumbar/Sacral medial branches supplying the facets under fluoroscopic guidance completed Partha Mike MD [address] , [address], [place], [address], [place] [facility] 05/31/2016 12:13:20 04/03/20 16 Fluoroscopic Guided Lumbar Facet Steroid Injections of levels completed Partha Mike MD [address] , [address], [place], [address], [place] [facility] 04/03/2016 13:41:21 03/06/20 16 Fluoroscopic Guided Lumbar Facet Steroid Injections of levels completed Partha Mike MD [address] , [address], [place], [address], [place] [facility] 03/08/2016 13:50:00 11/10/19 16 Trigger Point Injections under ultrasound guidance completed Partha Mike MD [address] , [address], [place], [address], [place] [facility] 11/10/2015 14:02:24 10/26/19 16 Fluoroscopic Guided Lumbar Facet Steroid Injections of levels completed Partha Mike MD [address] , [address], [place], [address], [place] [facility] 10/26/2015 09:40:25 09/28/19 16 Fluoroscopic Guided Lumbar Facet Steroid Injections of levels completed Partha Mike MD [address] , [address], [place], [address], [place] [facility] 09/28/2015 13:48:43 03/14/20 15 Lumbar Epidural steroid injection under fluoroscopic guidance completed Partha Mike MD [address] , [address], [place], [address], [place] [facility] 03/14/2015 14:26:28 11/23/19 15 Lumbar Epidural steroid injection under fluoroscopic guidance completed Partha Mike MD [address] , [address], [place], [address], [place] [facility] 11/23/2014 14:50:01 06/14/20 14 Lumbar Epidural steroid injection under fluoroscopic guidance completed Partha Mike MD [address] , [address], [place], [address], [place] [facility] 06/14/2014 11:20:52 03/01/20 14 Lumbar Epidural steroid injection under fluoroscopic guidance completed Partha Mike MD [address] , [address], [place], [address], [place] [facility] 03/02/2014 14:36:10 12/09/19 14 Intra-articular shoulder steroid injection under ultrasound guidance completed Partha Mike MD [address] , [address], [place], [address], [place] [facility] 12/08/2013 18:00:06 09/21/19 14 Lumbar Epidural steroid injection under fluoroscopic guidance completed Partha Mike MD [address] , [address], [place], [address], [place] [facility] 09/22/2013 08:45:16 06/23/20 13 Lumbar Epidural steroid injection under fluoroscopic guidance completed Partha Mike MD [address] , [address], [place], [address], [place] [facility] 06/24/2013 09:47:40 02/03/20 13 Lumbar Epidural steroid injection under fluoroscopic guidance completed Partha Mike MD [address] , [address], [place], [address], [place] [facility] 02/03/2013 15:20:43 11/11/19 13 Lumbar Epidural steroid injection under fluoroscopic guidance completed Partha Mike MD [address] , [address], [place], [address], [place] [facility] 11/10/2012 13:43:13 08/11/20 12 Lumbar Epidural steroid injection under fluoroscopic guidance completed Partha Mike MD [address] , [address], [place], [address], [place] [facility] 08/12/2012 09:13:07 11/26/19 12 Lumbar Epidural steroid injection under fluoroscopic guidance completed Partha Mike MD [address] , [address], [place], [address], [place] [facility] 11/27/2011 10:25:45 10/16/19 12 Lumbar Epidural steroid injection under fluoroscopic guidance completed Partha Mike MD [address] , [address], [place], [address], [place] [facility] 10/17/2011 09:56:36 Back Surgery completed Amarisjacob Johnson [place] [facility] 12/01/2013 09:38:49 Other completed Amaris Valenciaer [place] [facility] 11/22/2014 12:00:10 Other completed Amaris Johnson [place] [facility] 10/04/2011 09:30:27 Other completed Amaris Johnson [facility] 10/04/2011 09:30:27 Tonsillectomy completed Amaris Johnson [place] [facility] 10/04/2011 09:30:27 Appendectomy completed Amarisjacob Johnson [place] [facility] 11/05/2018 11:04:20 Imaging Results None [...] ORDERS IN THE SYSTEM. PLEASE GOTO ANY [facility] active Not Available Not Available No t Available OneTouch Delica Lancets 33 gauge active Not Available Not Available Not Available Accu-Chek FastClix Lancing Device active Not Available Not Available Not Available Ilevro 0.3 % eye drops,susp ension INSTIL 1 DROP DAILY TO SURGIVAL EYE. START 2 DAYS PRIOR TO SURGERY. TAPER DIRECETD 05/04 completed Not Available Not Available Not Available Fluvirin 0114-8181 45 mcg (15 mcg x 3)/0.5 mL [...] Not Available No t Available Fluzone High-Dose 4089-2794 (PF) 180 mcg/0.5 mL intramuscu lar syringe ADM 0.5ML IM UTD 10/20 completed Not Available Not Available Not Available Fluad 2018- 65yr up(PF)45 mcg(15 mcgx3)/0.5 mL intramuscu lar syringe ADM 0.5ML IM UTD 07/12 completed Not Available Not Available Not Available Fluzone High-Dose Quad 2019- (PF) 240 mcg/0.7 mL IM syringe ADM 0.7ML IM UTD 07/12 completed Not Available Not Available Not Available BinaxNOW COVID-19 Ag Self Test kit TEST DIRECTED TODAY active Not Available Not Available No t Available Vitals Date Recorded Body height Pain severity - 0-10 verbal numeric rating [Score] - Reported Oxygen saturation Oxygen saturation in Arterial blood by Pulse oximetry Heart rate Systolic blood pressure Diastolic blood pressure Provider Name and Address Organization Details Last Updated DateTime 4 175.26 cm 2 96 % 96 % 67 /min 115 mm[Hg] 64 mm[Hg] Khadra Daviddivine [facility] 4 11:09:00 [...] saturation in Arterial blood by Pulse oximetry Pain severity - 0-10 verbal numeric rating [Score] - Reported Body mass index (BMI) Body weight Systolic blood pressure Diastolic blood pressure Provider Name and Address Organization Details Last Updated DateTime 4 175.26 cm 80 /min 97 % 97 % 10 41.3 kg/m2 159564. 86 g 166 mm[Hg] 84 mm[Hg] Partha schmidt MD [address] , [address], [place], [address], [place] [facility] 4 11:12:56 Date Recorded Body height Pain severity - 0-10 verbal numeric rating [Score] - Reported Heart rate Oxygen saturation Oxygen saturation in Arterial blood by Pulse oximetry Systolic blood pressure Diastolic blood pressure Provider Name and Address Organization Details Last Updated DateTime 4 175.26 cm 7 71 /min 97 % 97 % 121 mm[Hg] 63 mm[Hg] Khadraholden Daviddivine [place] [facility] 4 08:35:52 Date Recorded Body height Heart rate Oxygen saturation Oxygen saturation in Arterial blood by Pulse oximetry Pain severity - 0-10 verbal numeric rating [Score] - Reported Body mass index (BMI) Body weight Systolic blood pressure Diastolic blood pressure Provider Name and Address Organization Details Last Updated DateTime 5 175.26 cm 80 /min 97 % 97 % 9 40.3 kg/m2 608830. 72 g 136 mm[Hg] 85 mm[Hg] Partha schmidt MD [address] , [address], [place], [address], [place] [facility] 5 09:46:02 Social History Question Answer Notes LastModified by Organizat ion Details LastModified Time Tobacco Smoking Status Former Smoker Quit > 20 years Not Available [employer] 06/10/2020 03:16:11 What Is Your Level Of Alcohol Consumption? Occasional [id number] Information not available 06/10/2020 Are You Currently Employed? No Workers Comp [id number] Information not available 06/10/2020 Which Illicit Or Recreational Drugs Have You Used? 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 With Others Information not available 10/04/2011 Marital Status Informatio n not available 10/04/2011 What Was The Date Of Your Most Recent Tobacco Screening? 03/11/2019 [id number] Information not available 06/10/2020 Sex: Unknown Functional [...] History Condition Response Diabetes Y Hypertension Y High Cholesterol Y GERD/Reflux Y Past Encounters Encounter ID Performer Location Encounter Start Date Encounter Closed Date Diagnosis/Indication Diagnosis SNOMED-CT Code Diagnosis ICD10 Code Diagnosis Note [id number] [facility] [address] [place] [address] 10/04/2011 08:43:25 10/04/2011 15:11:17 [id number] [facility] [address] [place] [address] 10/16/2011 13:03:10 10/16/2011 15:55:21 [id number] [facility] [address] [place] [address] 11/14/2011 08:53:08 11/14/2011 16:02:29 [id number] [facility] [address] [place] [address] 11/26/2011 13:47:13 11/27/2011 09:25:30 [id number] [facility] [address] [place] [address] 01/10/2012 12:59:24 01/10/2012 15:51:49 [id number] Partha Mike MD [facility] [address] [place] [address] 07/29/2012 09:56:41 07/29/2012 15:35:09 [id number] Partha Mike MD PAIN OFFICE [address] [place] [address] 08/11/2012 13:15:02 08/11/2012 15:26:03 [id number] Partha Mike MD [facility] [address] [place] [address] 09/23/2012 13:36:52 09/23/2012 15:52:57 [id number] Partha Mike MD PA[facility] OFFICE [address] [place] [address] 11/10/2012 10:02:01 11/10/2012 15:08:49 [id number] Partha Mike MD PAIN OFFICE [address] [place] [address] 01/15/2013 09:03:50 01/15/2013 09:44:06 [id number] Partha Mike MD PAIN OFFICE [address] [place] [address] 02/02/2013 12:53:42 02/02/2013 15:44:04 [id number] [facility] [address] [place] [address] 03/31/2013 09:50:54 03/31/2013 15:57:47 [id number] [facility] [address] [place] [address] 06/23/2013 13:47:03 06/23/2013 15:44:00 Diabetes mellitus 43833770 Spinal deepika nosis of lumbar region 55790761 Lumbosacra l radiculitis 98423555 [id number] [facility] [address] [place] [address] 09/21/2013 09:40:53 09/21/2013 16:06:00 Spinal stenosis of lumbar region 39626525 Diabetes mellitus 31642567 Lumbosacra l radiculitis 64699774 [id number] [facility] [address] [place] [address] 11/10/2013 09:59:56 11/13/2013 09:32:38 Diabetes mellitus 18508142 Lumbosacra l radiculitis 95423697 Spinal deepika nosis of lumbar region 36849103 Pseudoclau dication syndrome 38139632 [id number] [facility] [address] [place] [address] 12/08/2013 14:43:41 12/08/2013 18:01:06 Spinal stenosis of lumbar region 85814602 Diabetes mellitus 42593064 Lumbosacra l radiculitis 88994810 Shoulder joint pain 649900017 58207 Amaris Johnson [facility] [address] [facility] [place] [place] [address] 12/16/2013 10:48:12 12/16/2013 14:53:27 Shoulder joint pain 617814579 Degenerati on of intervertebral disc 94132532 Spinal deepika nosis of lumbar region 75319823 Diabetes mellitus 36989193 Lumbosacra l radiculitis 86748775 38089 [facility] [address] [place] [address] 02/02/2014 09:34:56 02/02/2014 10:18:41 Spinal stenosis of lumbar region 69402194 Degenerati on of intervertebral disc 65378893 Lumbosacra l radiculitis 16914271 Pseudoclau dication syndrome 95271069 [id number] [facility] [address] [facility] [place] [address] 03/01/2014 11:09:53 03/02/2014 14:37:45 Spinal stenosis of lumbar region 05702263 Degenerati on of intervertebral disc 72799505 Diabetes mellitus 51719814 Lumbosacra l radiculitis 77623891 Shoulder joint pain 755638324 38729 [facility] [address] [facility] [place] [address] 05/26/2014 09:28:16 05/26/2014 10:59:20 Spinal stenosis of lumbar region 51742210 Degenerati on of intervertebral disc 33611103 Diabetes mellitus 60383431 Lumbosacra l radiculitis 63884639 Shoulder joint pain 385322431 68235 [facility] [address] [facility] [place] [address] 06/14/2014 10:27:48 06/14/2014 11:25:21 Spinal stenosis of lumbar region 23556937 Degenerati on of intervertebral disc 03822262 Diabetes mellitus 84660506 Lumbosacra l radiculitis 63207243 Shoulder joint pain 176270213 12138 [facility] [address] [place] [address] 07/01/2014 13:08:47 07/02/2014 11:31:47 Spinal stenosis of lumbar region 12299102 Degenerati on of intervertebral disc 00978793 Diabetes mellitus 37217810 Lumbosacra l radiculitis 23139881 97571 [facility] [address] [place] [address] 07/15/2014 14:20:26 07/18/2014 10:47:48 Spinal stenosis of lumbar region 59175948 Degenerati on of intervertebral disc 68430963 Diabetes mellitus 67413399 Lumbosacra l radiculitis 99260477 Shoulder joint pain 602157517 94957 [facility] [address] [facility] [place] [address] 11/22/2014 11:25:34 11/23/2014 14:51:48 Spinal stenosis of lumbar region 04827508 Degenerati on of intervertebral disc 67663876 Diabetes mellitus 25302117 Lumbosacra l radiculitis 92847969 Shoulder joint pain 091534027 30915 [facility] [address] [place] [address] [place] [address] 02/23/2015 11:44:55 02/28/2015 11:49:49 Spinal stenosis of lumbar region 54940110 Degenerati on of intervertebral disc 39306370 Diabetes mellitus 93873706 Lumbosacra l radiculitis 62066958 Shoulder joint pain 973846104 [id number] [facility] [address] [place] [address] [place] [address] 03/14/2015 09:26:00 03/14/2015 14:28:25 Spinal stenosis of lumbar region 21559056 Degenerati on of intervertebral disc 26075457 Diabetes mellitus 82500596 Lumbosacra l radiculitis 76293685 Shoulder joint pain 070600136 11263 Partha Mike MD [facility] [address] [facility] [place] [address] 09/21/2015 08:46:34 09/21/2015 10:05:28 Spinal stenosis of lumbar region 40056604 M48.06 Degenerati on of intervertebral disc 43314789 M51.9 Diabetes mellitus 188362 09 E11.9 Lumbosacra l radiculitis 06030225 M54.17 Shoulder joint pain 2679 96601 M25.519 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 98405429 M47.816 62816 Partha Mike MD [facility] [address] [employer] [address] [facility] [place] [address] 09/28/2015 10:28:09 09/28/2015 13:50:48 Spinal stenosis of lumbar region 55461439 M48.06 Degenerati on of intervertebral disc 09391271 M51.17 M51.9 Diabetes mellitus 418562 09 E11.9 Lumbosacra l radiculitis 34831615 M54.17 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 02577684 M47.816 Shoulder joint pain 2679 69640 M25.511 M25.519 67066 Partha Mike MD [facility] PA[facility] [address] [facility] [place] [address] 10/25/2015 11:19:24 10/26/2015 08:58:26 Spinal stenosis of lumbar region 78352691 M48.06 Degenerati on of intervertebral disc 51950980 M51.17 M51.9 Diabetes mellitus 557133 09 E11.9 Lumbosacra l radiculitis 17455498 M54.17 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 44044243 M47.816 Shoulder joint pain 2679 61221 M25.511 M25.519 64050 Partha Mike MD PAIN OFFICE [address] [facility] [place] [address] 10/26/2015 08:59:15 10/26/2015 11:09:06 Spondylosis without myelopathy 14354589 M47.816 Spinal deepika nosis of lumbar region 04040855 M48.06 Degenerati on of intervertebral disc 66873926 M51.17 M51.9 Diabetes mellitus 587444 09 E11.9 Lumbosacra l radiculitis 66661266 M54.17 Shoulder joint pain 2679 09373 M25.519 52581 Partha Mike MD PAIN OFFICE [address] [place] [address] 11/04/2015 09:01:41 11/04/2015 10:57:41 Spondylosis without myelopathy 79606716 M47.816 Spinal deepika nosis of lumbar region 03491645 M48.06 Degenerati on of intervertebral disc 40259400 M51.17 M51.9 Diabetes mellitus 342844 09 E11.9 Lumbosacra l radiculitis 42025559 M54.17 Shoulder joint pain 2679 08644 M25.511 Muscle pain 71322814 M79 .1 29835 Partha Mike MD PAIN OFFICE [address] [facility] [place] [address] 11/10/2015 09:34:55 11/10/2015 14:03:07 Muscle pain 92218991 M79.1 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 61400418 M47.816 Degenerati on of intervertebral disc 45744392 M51.17 M51.9 Spinal deepika nosis of lumbar region 23115039 M48.06 Diabetes mellitus 444871 09 E11.9 Lumbosacra l radiculitis 34000910 M54.17 Shoulder joint pain 2679 24206 M25.511 40629 Partha Mike MD PAIN OFFICE [address] [place] [address] 11/30/2015 13:31:23 11/30/2015 14:19:05 Muscle pain 40254996 M79.1 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 65035636 M47.816 Spinal deepika nosis of lumbar region 84149816 M48.06 Lumbosacra l radiculitis 41977822 M54.17 Degenerati on of intervertebral disc 46574299 M51.17 M51.9 Diabetes mellitus 269061 09 E11.9 Shoulder joint pain 2679 86528 M25.511 41726 Partha Mike MD PAIN OFFICE [address] [place] [address] 02/10/2016 09:04:14 02/10/2016 10:56:58 Spinal stenosis of lumbar region 53410591 M48.06 Degenerati on of intervertebral disc 24425040 M51.17 M51.9 Muscle pain 11490537 M79 .1 Diabetes mellitus 372358 09 E11.9 Lumbosacra l radiculitis 83602786 M54.17 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 43356295 M47.816 Shoulder joint pain 2679 50194 M25.511 M25.519 87268 Partha Mike MD PAIN OFFICE [address] [place] [address] 03/02/2016 08:42:55 03/04/2016 08:55:28 Spinal stenosis of lumbar region 32812132 M48.06 Degenerati on of intervertebral disc 94112405 M51.17 M51.9 Muscle pain 53116435 M79 .1 Diabetes mellitus 636887 09 E11.9 Lumbosacra l radiculitis 13037734 M54.17 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 34602096 M47.816 Shoulder joint pain 2679 98517 M25.511 M25.519 17594 Partha Mike MD PAIN OFFICE [address] [place] [address] 03/06/2016 14:22:25 03/08/2016 13:51:55 Spondylosis without myelopathy 58015956 M47.816 Spinal deepika nosis of lumbar region 24651261 M48.06 Degenerati on of intervertebral disc 20883900 M51.17 M51.9 Muscle pain 09206776 M79 .1 Diabetes mellitus 328857 09 E11.9 Lumbosacra l radiculitis 13054035 M54.17 Shoulder joint pain 2679 82916 M25.511 M25.519 91650 Partha Mike MD PAIN OFFICE [address] [place] [address] 04/03/2016 09:43:41 04/03/2016 13:44:34 Spondylosis without myelopathy 65650957 M47.816 Degenerati on of intervertebral disc 04047472 M51.17 M51.9 Spinal deepika nosis of lumbar region 26302013 M48.06 Muscle pain 29504052 M79 .1 Diabetes mellitus 299675 09 E11.9 Lumbosacra l radiculitis 68786538 M54.17 Shoulder joint pain 2679 04822 M25.511 M25.519 53049 Partha Mike MD PAIN OFFICE [address] [place] [address] 05/04/2016 11:06:28 05/04/2016 15:53:59 Spondylosis without myelopathy 12284670 M47.816 Spinal deepika nosis of lumbar region 58131839 M48.06 Degenerati on of intervertebral disc 67891182 M51.17 M51.9 Muscle pain 36872604 M79 .1 Diabetes mellitus 725292 09 E11.9 Lumbosacra l radiculitis 05332699 M54.17 Shoulder joint pain 2679 02131 M25.511 M25.519 92074 aPrtha Mike MD PAIN OFFICE [address] [place] [address] 05/22/2016 14:45:55 05/31/2016 13:21:25 Spondylosis without myelopathy 67869988 M47.816 Spinal deepika nosis of lumbar region 92265504 M48.06 Degenerati on of intervertebral disc 90127927 M51.17 M51.9 Muscle pain 56540811 M79 .1 Diabetes mellitus 972041 09 E11.9 Lumbosacra l radiculitis 12676576 M54.17 Shoulder joint pain 2679 26186 M25.511 M25.519 21417 Partha Mike MD PAIN OFFICE [address] [place] [address] 06/18/2016 13:20:37 06/18/2016 20:15:12 Spinal stenosis of lumbar region 28998191 M48.06 Degenerati on of intervertebral disc 04705773 M51.17 M51.9 Diabetes mellitus 619067 09 E11.9 Lumbosacra l radiculitis 65158178 M54.17 Shoulder joint pain 2679 64297 M25.511 M25.519 21365 Partha Mike MD PAIN OFFICE [address] [place] [address] 07/04/2016 10:32:34 07/08/2016 10:58:02 Spinal stenosis of lumbar region 70095390 M48.06 Degenerati on of intervertebral disc 33183281 M51.17 M51.9 Diabetes mellitus 921996 09 E11.9 Lumbosacra l radiculitis 42674768 M54.17 Shoulder joint pain 2679 36909 M25.511 M25.519 46282 Partha Mike MD PAIN OFFICE [address] [place] [address] 10/15/2016 11:19:51 10/28/2016 19:56:56 Shoulder joint pain 173543726 M25.511 M25.512 Diabetes mellitus 641991 09 E11.9 Muscle pain 57768002 M79 .1 97805 Partha Mike MD [facility] [address] [place] [address] 11/01/2016 09:40:43 11/01/2016 11:47:54 Spinal stenosis of lumbar region 12617165 M48.06 Degenerati on of intervertebral disc 79435386 M51.17 M51.9 Diabetes mellitus 666855 09 E11.9 Lumbosacra l radiculitis 12252340 M54.17 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 22826213 M47.816 Shoulder joint pain 2679 73610 M25.511 M25.519 59418 Partha Mike MD [facility] PAIN [facility] [address] [place] [address] 11/08/2016 10:31:25 11/08/2016 12:00:00 Spinal stenosis of lumbar region 41550398 M48.06 Degenerati on of intervertebral disc 12216772 M51.17 M51.9 Diabetes mellitus 083576 09 E11.9 Lumbosacra l radiculitis 58620400 M54.17 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 31693958 M47.816 Shoulder joint pain 2679 96687 M25.511 M25.519 37735 Partha Mike MD PAIN OFFICE [address] [place] [address] 12/10/2016 13:05:58 12/14/2016 09:38:18 Spinal stenosis of lumbar region 43203479 M48.06 Degenerati on of intervertebral disc 12708666 M51.17 M51.9 Diabetes mellitus 794193 09 E11.9 Lumbosacra l radiculitis 56001274 M54.17 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 96792538 M47.816 Shoulder joint pain 2679 04257 M25.511 M25.519 51400 Partha Mike MD [facility] [address] [place] [address] 01/28/2017 13:25:41 01/31/2017 16:32:23 Spinal stenosis of lumbar region 88161888 M48.06 Degenerati on of intervertebral disc 94851926 M51.17 M51.9 Diabetes mellitus 487519 09 E11.9 Lumbosacra l radiculitis 39092272 M54.17 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 28584496 M47.816 Shoulder joint pain 2679 26913 M25.511 M25.519 81681 Partha Mike MD PAIN OFFICE [address] [place] [address] 02/19/2017 08:59:03 02/19/2017 16:04:37 Spinal stenosis of lumbar region 22366789 M48.06 Degenerati on of intervertebral disc 80261515 M51.17 M51.9 Diabetes mellitus 798338 09 E11.9 Lumbosacra l radiculitis 52381221 M54.17 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 44703598 M47.816 Shoulder joint pain 2679 27177 M25.511 M25.519 60154 Partha Mike MD PAIN OFFICE [address] [place] [address] 04/03/2017 08:29:28 04/05/2017 11:42:54 Spinal stenosis of lumbar region 97318138 M48.06 Degenerati on of intervertebral disc 57364972 M51.17 M51.9 Muscle pain 98652114 M79 .1 Diabetes mellitus 001260 09 E11.9 Lumbosacra l radiculitis 77011423 M54.17 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 69837321 M47.816 Shoulder joint pain 2679 89034 M25.511 M25.519 14388 Partha Mike MD PAIN OFFICE [address] [place] [address] 04/23/2017 14:01:21 04/24/2017 11:10:29 Spondylosis without myelopathy 11673455 M47.816 Spinal deepika nosis of lumbar region 44278190 M48.06 Degenerati on of intervertebral disc 00007054 M51.17 M51.9 Muscle pain 51250516 M79 .1 Diabetes mellitus 163065 09 E11.9 Lumbosacra l radiculitis 43297528 M54.17 Shoulder joint pain 2679 86941 M25.511 M25.519 07047 Partha Mike MD PAIN OFFICE [address] [place] [address] 05/22/2017 14:27:24 06/03/2017 11:45:59 Spondylosis without myelopathy 14500824 M47.816 Spinal deepika nosis of lumbar region 22152456 M48.062 Degenerati on of intervertebral disc 04826873 M51.17 M51.9 Muscle pain 77722335 M79 .1 Diabetes mellitus 496250 09 E11.9 Lumbosacra l radiculitis 35528527 M54.17 Shoulder joint pain 2679 87864 M25.511 M25.519 91124 Partha Mike MD PAIN OFFICE [address] [place] [address] 06/11/2017 14:41:01 06/16/2017 15:47:44 Spondylosis without myelopathy 54066957 M47.816 Spinal deepika nosis of lumbar region 76776596 M48.062 Degenerati on of intervertebral disc 54398343 M51.17 M51.9 Muscle pain 01252629 M79 .1 Diabetes mellitus 149363 09 E11.9 Lumbosacra l radiculitis 92741167 M54.17 Shoulder joint pain 2679 79740 M25.511 M25.519 67061 Partha Mike MD PAIN OFFICE [address] [place] [address] 07/22/2017 10:58:27 07/24/2017 15:55:08 Lumbosacral radiculitis 29035117 M54.17 Spinal deepika nosis of lumbar region 44035038 M48.062 Degenerati on of intervertebral disc 40674565 M51.17 M51.9 Diabetes mellitus 168119 09 E11.9 54636 Partha Mike MD PAIN OFFICE [address] [place] [address] 08/02/2017 09:59:43 08/02/2017 11:37:37 Spondylosis without myelopathy 81182676 M47.816 Spinal deepika nosis of lumbar region 15461320 M48.062 Degenerati on of intervertebral disc 58662852 M51.17 M51.9 Muscle pain 38637831 M79 .1 Diabetes mellitus 955757 09 E11.9 Lumbosacra l radiculitis 92533133 M54.17 Shoulder joint pain 2679 38368 M25.511 M25.519 04023 Partha Mike MD [facility] PA[facility] [address] [place] [address] 12/19/2017 14:28:38 12/19/2017 15:54:30 Spinal stenosis of lumbar region 83153895 M48.062 Degenerati on of intervertebral disc 32055242 M51.17 M51.9 Diabetes mellitus 410029 09 E11.9 Lumbosacra l radiculitis 17252668 M54.17 Shoulder joint pain 2679 50089 M25.511 M25.519 30486 Partha Mike MD PAIN OFFICE [address] [facility] [place] [address] 01/08/2018 11:03:45 01/09/2018 14:15:32 Spinal stenosis of lumbar region 42400181 M48.062 Degenerati on of intervertebral disc 85690528 M51.17 M51.9 Diabetes mellitus 711697 09 E11.9 Lumbosacra l radiculitis 34275146 M54.17 Shoulder joint pain 2679 96580 M25.511 M25.519 64128 Partha Mike MD PAIN OFF[facility] [address] [facility] [place] [address] 05/28/2018 09:58:40 05/28/2018 15:27:55 Spinal stenosis of lumbar region 17520755 M48.062 Degenerati on of intervertebral disc 68751219 M51.17 M51.9 Diabetes mellitus 539192 09 E11.9 Lumbosacra l radiculitis 60834295 M54.17 Shoulder joint pain 2679 87787 M25.511 M25.519 67543 Partha Mike MD PAIN OFFICE [address] [facility] [place] [address] 10/20/2018 11:37:41 10/20/2018 13:56:50 Spinal stenosis of lumbar region 86827024 M48.062 Degenerati on of intervertebral disc 14318078 M51.17 M51.9 Diabetes mellitus 536598 09 E11.9 Lumbosacra l radiculitis 97726064 M54.17 Shoulder joint pain 2679 20086 M25.511 M25.519 98234 Partha Mike MD PAIN OFFICE [address] [place] [address] 12/09/2018 09:04:43 12/10/2018 10:50:34 Spinal stenosis of lumbar region 69033914 M48.062 Degenerati on of intervertebral disc 44386354 M51.17 M51.9 Diabetes mellitus 374417 09 E11.9 Lumbosacra l radiculitis 70864024 M54.17 Shoulder joint pain 2679 14427 M25.511 M25.519 90992 Partha Mike MD PAIN OFFICE [address] [place] [address] 03/10/2019 09:36:54 03/11/2019 13:42:01 Spinal stenosis of lumbar region 39813896 M48.062 Degenerati on of intervertebral disc 68625676 M51.17 M51.9 Diabetes mellitus 491682 09 E11.9 Lumbosacra l radiculitis 02531486 M54.17 Shoulder joint pain 2679 63727 M25.511 M25.519 Muscle pain 61215205 M79 .18 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 63688456 M47.816 93470 Partha Mike MD PAIN OFFICE [address] [place] [address] 06/03/2019 08:17:28 06/05/2019 15:46:22 Spinal stenosis of lumbar region 92476624 M48.062 Degenerati on of intervertebral disc 25891948 M51.17 M51.9 Diabetes mellitus 926021 09 E11.9 Lumbosacra l radiculitis 71119628 M54.17 Shoulder joint pain 2679 23396 M25.511 M25.519 Muscle pain 17938721 M79 .18 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 78367861 M47.816 87470 Partha Mike MD PAIN OFFICE [address] [place] [address] 09/01/2019 13:03:14 09/08/2019 10:49:39 Spinal stenosis of lumbar region 83653385 M48.062 Degenerati on of intervertebral disc 25743945 M51.17 M51.9 Diabetes mellitus 792956 09 E11.9 Lumbosacra l radiculitis 09482738 M54.17 Shoulder joint pain 2679 81552 M25.511 M25.519 Muscle pain 87188291 M79 .18 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 83956551 M47.816 96678 Partha Mike MD SV PAIN [facility] [address] [facility] [place] [address] 09/17/2019 10:01:22 09/18/2019 16:23:35 Shoulder joint pain 007194348 M25.511 M25.519 60900 Partha Mike MD PAIN OFFICE [address] [place] [address] 12/28/2019 11:05:53 01/12/2020 12:30:52 Spinal stenosis of lumbar region 69015066 M48.062 Degenerati on of intervertebral disc 91535799 M51.17 M51.9 Diabetes mellitus 858555 09 E11.9 Lumbosacra l radiculitis 80139377 M54.17 Shoulder joint pain 2679 34583 M25.511 M25.519 57925 Partha Mike MD SV PAIN [facility]ICE [address] [facility] [place] [address] 01/12/2020 13:27:29 01/14/2020 10:17:33 Spinal stenosis of lumbar region 76031717 M48.062 Degenerati on of intervertebral disc 74834055 M51.17 M51.9 Diabetes mellitus 003231 09 E11.9 Lumbosacra l radiculitis 47984041 M54.17 Shoulder joint pain 2679 88730 M25.511 M25.519 Muscle pain 44820202 M79 .18 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 52371081 M47.816 05449 Partha Mike MD PAIN OFFICE [address] [facility] [place] [address] 02/12/2020 10:33:05 02/12/2020 12:16:21 Degeneration of intervertebral disc 93280984 M51.17 M51.9 Diabetes mellitus 311736 09 E11.9 Lumbosacra l radiculitis 80775174 M54.17 Muscle pain 85513042 M79 .18 Spinal deepika nosis of lumbar region 56721516 M48.062 33534 Partha Mike MD PAIN OFFICE [address] [place] [facility] [place] [place] [address] 04/19/2020 11:04:03 04/19/2020 16:28:26 Spinal stenosis of lumbar region 45541394 M48.062 Degenerati on of intervertebral disc 12697106 M51.17 M51.9 Diabetes mellitus 554544 09 E11.9 Lumbosacra l radiculitis 15077269 M54.17 Shoulder joint pain 2679 36739 M25.511 M25.519 Muscle pain 13070536 M79 .18 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 27446699 M47.816 72863 Partha Mike MD PAIN OFFICE [address] [facility] [place] [place] [address] 07/12/2020 11:35:48 07/12/2020 16:22:01 Spinal stenosis of lumbar region 99653962 M48.062 Degenerati on of intervertebral disc 71250186 M51.17 M51.9 Diabetes mellitus 265640 09 E11.9 Lumbosacra l radiculitis 27803369 M54.17 Shoulder joint pain 2679 86765 M25.511 M25.519 Muscle pain 04371258 M79 .18 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 73076925 M47.816 97563 Partha Mike MD PAIN OFFICE [address] [facility] [place] [address] 10/04/2020 11:41:18 10/05/2020 14:19:50 Spinal stenosis of lumbar region 19285011 M48.062 Degenerati on of intervertebral disc 41662476 M51.17 M51.9 Diabetes mellitus 983420 09 E11.9 Lumbosacra l radiculitis 38424351 M54.17 Shoulder joint pain 2679 24957 M25.511 M25.519 Muscle pain 99638458 M79 .18 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 85787358 M47.816 70849 Partha Mike MD PAIN OFFICE [address] [place] [address] 01/03/2021 10:40:29 01/03/2021 15:47:46 Spinal stenosis of lumbar region 75121706 M48.062 Degenerati on of intervertebral disc 50447789 M51.17 M51.9 Diabetes mellitus 120004 09 E11.9 Lumbosacra l radiculitis 91292274 M54.17 Shoulder joint pain 2679 05252 M25.511 M25.519 Muscle pain 82442057 M79 .18 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 43354103 M47.816 71209 Partha Mike MD PAIN OFFICE [address] [place] [address] 03/31/2021 11:22:58 04/03/2021 08:59:53 Spondylosis without myelopathy 41178147 M47.816 Spinal deepika nosis of lumbar region 72561518 M48.062 Degenerati on of intervertebral disc 38705352 M51.17 M51.9 Muscle pain 21995497 M79 .18 Diabetes mellitus 425436 09 E11.9 Lumbosacra l radiculitis 59485606 M54.17 Shoulder joint pain 2679 47782 M25.511 M25.519 07793 Partha Mike MD PAIN OFFICE [address] [place] [address] 04/18/2021 10:28:27 04/18/2021 13:46:52 Spinal stenosis of lumbar region 62743646 M48.062 Degenerati on of intervertebral disc 52642302 M51.17 M51.9 Diabetes mellitus 657464 09 E11.9 Lumbosacra l radiculitis 05903294 M54.17 Shoulder joint pain 2679 54475 M25.511 M25.519 Muscle pain 85498137 M79 .18 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 53305215 M47.816 14101 Partha Mike MD SV PAIN [facility] [address] [place] [address] 07/25/2021 10:05:25 07/25/2021 15:04:09 Spinal stenosis of lumbar region 57243847 M48.062 Degenerati on of intervertebral disc 40324934 M51.17 M51.9 Diabetes mellitus 430413 09 E11.9 Lumbosacra l radiculitis 96080831 M54.17 Shoulder joint pain 2679 41561 M25.511 M25.519 Muscle pain 38418952 M79 .18 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 28516230 M47.816 84049 Partha Mike MD PAIN OFFICE [address] [place] [address] 10/03/2021 11:29:19 10/03/2021 14:14:03 Diabetes mellitus 97031344 E11.9 Lumbar post-laminectomy syndrome 649777191 M96.1 Inflammati on of sacroiliac joint 39181504 M46.1 21664 Partha Mike MD PAIN OFFICE [address] [place] [address] 10/04/2021 10:35:06 10/04/2021 16:23:26 Diabetes mellitus 01882295 E11.9 Lumbar post-laminectomy syndrome 357468034 M96.1 Inflammati on of sacroiliac joint 57293281 M46.1 74501 Partha Mike MD SV PAIN OFFICE [address] [place] [address] 10/30/2021 09:25:15 10/30/2021 09:31:03 Diabetes mellitus 84647557 E11.9 Lumbar post-laminectomy syndrome 766454740 M96.1 Inflammati on of sacroiliac joint 73739862 M46.1 09700 Partha Mike MD PAIN OFFICE [address] [place] [address] 01/02/2022 15:17:13 01/02/2022 16:35:15 Spinal stenosis of lumbar region 90956414 M48.062 Degenerati on of intervertebral disc 92253997 M51.17 M51.9 Diabetes mellitus 929419 09 E11.9 Lumbosacra l radiculitis 22160223 M54.17 Shoulder joint pain 2679 07796 M25.511 M25.519 Muscle pain 52192521 M79 .18 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 93660480 M47.816 26977 Partha Mike MD PAIN OFFICE [address] [place] [address] 04/25/2022 10:05:34 04/25/2022 10:54:23 Lumbosacral radiculopathy 1121708 M54.17 Degenerati on of lumbar intervertebral disc 19180136 M51.36 14047 Partha Mike MD SV PAIN OFFICE [address] [place] [address] 07/31/2022 12:59:02 07/31/2022 13:28:12 Lumbosacral radiculopathy 1847731 M54.17 Degenerati on of lumbar intervertebral disc 86574513 M51.36 81004 Partha Mike MD PAIN OFFICE [address] [place] [address] 10/23/2022 14:25:44 10/24/2022 09:29:06 Lumbosacral radiculitis 61790951 M54.17 Lumbosacra l radiculopathy 6187371 M54.17 Degenerati on of lumbar intervertebral disc 57609090 M51.36 46818 Partha Mike MD SV PAIN [facility] [address] [place] [address] 01/08/2023 14:34:27 01/08/2023 16:27:27 Lumbosacral radiculopathy 0283069 M54.17 Degenerati on of lumbar intervertebral disc 20877285 M51.36 43411 Partha Mike MD PAIN OFFICE [address] [place] [address] 06/12/2023 14:08:28 06/12/2023 15:59:40 Spinal stenosis of lumbar region 68044779 M48.062 Lumbosacra l radiculopathy 1532307 M54.17 Degenerati on of lumbar intervertebral disc 98223142 M51.36 00337 Partha Mike MD PAIN OFFICE [address] [place] [address] 11/05/2023 10:51:33 11/05/2023 12:02:11 Lumbosacral radiculitis 72410009 M54.17 Lumbosacra l radiculopathy 2714506 M54.17 Degenerati on of lumbar intervertebral disc 50532017 M51.36 Lumbar post-laminectomy syndrome 421447419 M96.1 32319 Partha Mike MD PAIN OFFICE [address] [place] [address] 12/04/2023 12:58:53 12/04/2023 14:55:08 Spinal stenosis of lumbar region 14986525 M48.062 Lumbosacra l radiculopathy 7399857 M54.17 Degenerati on of lumbar intervertebral disc 48533965 M51.36 02832 Partha Mike MD PAIN OFFICE [address] [place] [address] 03/05/2024 11:00:26 03/05/2024 13:23:09 Spinal stenosis of lumbar region 82194957 M48.062 Lumbosacra l radiculitis 20218161 M54.17 Lumbosacra l radiculopathy 2662767 M54.17 Degenerati on of lumbar intervertebral disc 39116855 M51.36 Lumbar post-laminectomy syndrome 318309257 M96.1 96506 Partha Mike MD PAIN OFFICE [address] [place] [address] [place] [address] 03/24/2024 11:06:25 03/24/2024 11:33:08 Spinal stenosis of lumbar region 50582976 M48.062 Lumbosacra l radiculopathy 7867829 M54.17 Degenerati on of lumbar intervertebral disc 32586778 M51.36 51835 Partha Mike MD [facility] PAIN [facility] [address] [employer] [address] 06/26/2024 10:56:44 06/26/2024 11:28:46 Spinal stenosis of lumbar region 71735670 M48.062 Lumbosacra l radiculitis 94759401 M54.17 Lumbosacra l radiculopathy 2984465 M54.17 Degenerati on of lumbar intervertebral disc 69151879 M51.362 Lumbar post-laminectomy syndrome 517796073 M96.1 52201 Partha Mike MD PAIN OFFICE [address] [place] [address] 07/15/2024 08:21:12 07/15/2024 11:16:14 Spinal stenosis of lumbar region 77445350 M48.062 Lumbosacra l radiculopathy 4660347 M54.17 Degenerati on of lumbar intervertebral disc 82409253 M51.362 93682 Partha Mike MD PAIN OFFICE [address] [place] [address] 10/16/2024 09:44:30 10/16/2024 11:21:12 Lumbosacral radiculitis 86021463 M54.17 Spinal deepika nosis of lumbar region 97832573 M48.062 Lumbosacra l radiculopathy 6740445 M54.17 Degenerati on of lumbar intervertebral disc 95339327 M51.362 Lumbar post-laminectomy syndrome [id number] M96.1 Health Concerns Section Related Observation LastModified by Organization Detai ls LastModified Time None Recorded Concern Status LastModified by Organization Details LastModified Time None Recorded Advance Directives Directive None Recorded Payers Encounter Date Sequence Insurance Name Policy Number Policy Honeycutt Covered Member ID Honeycutt Member ID Guarantor Name 03/05/2024 1 [employer] ([employer]) [id number] Cole Taylor [id number] Cole Taylor 03/24/2024 1 [employer]) [id number] Cole Taylor [id number] Cole Taylor 06/26/2024 1 [employer] ([employer]) [id number] Cole Taylor [id number] Cole Taylor 07/15/2024 1 [employer] ([employer]) [id number] Cole Taylor [id number] Cole Taylor 10/16/[address] [facility] (MEDICARE REPLACEMENT/A DVANTAGE - HMO) Cole Taylor [id number] Cole Taylor Notes Date Note Type Note Provider Name and Address Organization Details Recorded Time 03/05/2024 text/html Cole Taylor is a 73 [...] has trialed physical therapy at the in [place] with some pain benefit. He has recently joined the for a gym membership and is doing aquatic exercises.He has a lumbar epidural steroid injection on 12/04/2023. He reports 90% pain benefit for three months with a return of pain back to baseline. He states he was more active after the injection and was doing work around the house . Partha Mike MD [address] , [address], [place], [address], [facility] Pain Management 03/16/2024 10:43:39 03/24/2024 text/html He is here for a repeat lumbar epidural steroid injection under fluoroscopic guidance. Partha Mike MD [address] , [address], [place], [address], [facility] Pain Management 03/24/2024 11:36:06 06/26/2024 text/html Cole [...] has trialed physical therapy at the in [place] with some pain benefit. He has recently joined the for a gym membership and is doing aquatic exercises.He has a lumbar epidural steroid injection on 03/24/2024. He reports 90% pain benefit for three months with a return of pain back to baseline. He states he was more active after the injection and was doing work around the house . Partha Mike MD [address] , [address], [place], [address], [facility] - Pain Management 06/29/2024 14:20:49 07/15/2024 text/html He is here for a repeat lumbar epidural steroid injection under fluoroscopic guidance. Partha Mike MD [address] , [address], [place], [address], [facility] - Pain Management 07/15/2024 11:23:42 10/16/2024 text/html Cole Taylor is a 73 year [...] has trialed physical therapy at the in [place] with some pain benefit. He has recently joined the for a gym membership and is doing aquatic exercises.He has a lumbar epidural steroid injection on 07/15/2024. He reports 90% pain benefit for three months with a return of pain back to baseline. He states he was more active after the injection and was doing work around the house . Partha Mike MD [address] [place] [address] , [address], [place], [address], [place] [facility] 10/19/2024 11:06:40
--- OUTSIDE RECORDS SUMMARY | 2024-11-25 11:32 | XMS_ITS | Clinical Summary ---
Author Organization [facility] Address [address] [place] [address] Care Team Providers Care Parent Coach Name Role Phone Unavailable Primary Care Provider Unavailabl e Source Comments PLEASE NOTE, if this patient is a minor, it may be UNLAWFUL to discuss sensitive information that is contained in these records (such as FAMILY PLANNING, MENTAL HEALTH or SUBSTANCE ABUSE) with the minor patient's parent or other person without the patient's specific authorization.[facility] Social History Tobacco Use Types Packs/Day Years Used Date Smoking Tobacco: Never Assessed Sex and Gender Information Value Date Recorded Sex Assigned at Not on file Legal Sex Male 10:40 AM PDT Gender Identity Not on file Sexual Orientation Not on file Plan of Treatment Upcoming Encounters Date Type Department Care Team (Late st Contact Info) Description 12/18/2024 2:20 PM EDT Office Visit [facility] [address] [place] [address] Yojana Knight FNP [address] [place] [address] Health Maintenance Due Date Last Done Comments Hepatitis C Screening 1950 Lipid Screening 1950 Tobacco Screening 1950 Hypertension Screening (#1) 11/04/1967 Imm-DTaP/Tdap/Td (1 - Tdap) 1968 CT Colonography 1994 Colonoscopy 1994 Colorectal Cancer Screening 1994 FIT/gFOBT 1994 Fecal DNA 1994 Flexible Sigmoidoscopy 1994 Imm-Pneumococcal 65+ (1 of 1 - PCV) 11/04/1999 08/12/2024 Imm-Zoster, Recombinant (1 of 2) 11/04/1999 04/17/2023, 03/23/2022, 04/29/2013 Falls Prevention 2014 [id number] (1 - 2024-25 season) 2024 04/29/2024, 05/27/2023, 06/12/2022, Additional history exists Imm-Influenza (#1) 2024 04/29/2024, 0 04/17/2023, 05/11/2022, Additional history exists Alcohol and Drug Screen 08/26/2024 Depression Annual Screen 08/26/2024 Insurance [facility] [place] [place] [id number]
--- OUTSIDE RECORDS SUMMARY | 2024-11-25 11:32 | XMS_ITS | Patient Health Record ---
Author Organization [facility] Address [address] [facility] [place] [address] Care Team Providers Care Manager Diversity Name Role Phone Yvon Mckoy Jr, MD Primary Care Provider Unavail able Benyambar Nikkie Unavailable [phone] Allergies Allergen (clinical drug ingredient) Drug/Non Drug [...] disorder associated with type II diabetes mellitus (200790250) Type 2 diabetes mellitus with other diabetic neurological complication (E11.49) Active confirmed Problem Gout (29288539) Gout of left foot (M10.9) Active confirmed Rx drug management (4) Problem Gout (72644212) Gout of right foot (M10.9) Active confirmed Rx drug management (4) Problem 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 (911003969) 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 Rx drug management (4) Problem Chronic gouty arthritis (33012834) 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) Active confirmed Rx drug management (4) Plan Of Treatment No Information Insurance Providers Payer Name Payer Address Payer Phone Subscriber Number Group Number Insured Name Patient Relationship to Insured Coverage Start Date Coverage End Date Medicare National [employer] [address] [place] [address] [phone] [id number] Cole Taylor Self - patient is the insured AARP Secondary to Medicare [address] [place] [address] [id number] Cole Taylor Self - patient is the insured Medical (General) History Medical History History ICD Code Back,Hip,and Knee pain type II diabetes Diverticulosis Gout High blood pressure Sciatica Chicken pox Arthritis Numbness Diabetic Reflux ( GERD) Surgical History Surgery Date(Month/Year) back 06/19/2010 tonsills 1970s
== END 2024-11-25 11:24 | disposition home or self-care (01) ==
LOC: HO.HGI 10:02
PROVIDERS: PCP Internal Medicine; Visit Provider Nurse Practitioner
DX: Z01.818 Encounter for other preprocedural examination (principal); Z12.11 Encounter for screening for malignant neoplasm of colon; Z86.0102 Personal history of hyperplastic colon polyps
CPT/HCPCS: 99203

== ENCOUNTER → 2024-11-25 10:01 | Outpatient (BNVA) | payer MEDICARE, SELFPAY | PROVIDERS: PCP Internal Medicine; Visit Provider Nurse Practitioner | DX: Z01.818 Encounter for other preprocedural examination (principal); E66.01 Morbid (severe) obesity due to excess calories; G47.33 Obstructive sleep apnea (adult) (pediatric); Z68.41 Body mass index [BMI] 40.0-44.9, adult | CPT/HCPCS: 99202 ==

== ENCOUNTER 2024-12-22 09:04 | Outpatient (AMB) | payer MEDICARE, SELFPAY ==
--- NOTE | 2024-12-22 09:11 | A.OFFVIS_ITS ---
Intake Visit Reasons: 3 month follow up/ Testo Intake Note: Patient is present for 3M/TESTO Urology Medication:NONE Antibiotic Allergy:PREGABALIN Blood Thinner:ASPIRIN Mill Manager Required: No Allergies ibuprofen [From ADVIL] Allergy (Intermediate, Verified 12/22/24 09:12) lethargy pregabalin [From LYRICA] Allergy (Intermediate, Verified 12/22/24 09:12) SKIN CRAWL HPI Comments Details: Cole is a very pleasant male. He is a patient of Dr. Mckoy. He is seen for the following urologic condition. - erectile dysfunction - low libido - urinary frequency Trial of testosterone Significant nocturia secondary to Jardiance Recommend to PCP to initiate lowest dose possible SGLT2 given negative impact on nocturia and sleep quality Testosterone under 300 setting of diabetes with decreased energy Hypogonadism T 09/19 266, LH 5.3 Diabetic Initial symptomatology includes decreased energy and quality of erections Initial lab work indicates 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 Erectile dysfunction Penile implant placed proximally 2014 Has had issues with activation Concern about prior infection with MRI that was negative in November 2019 On examination today prosthetic was only partially deflated We went through discussion and instruction for full deflation followed by full inflation Prosthesis is mechanically intact with good inflation and Good deflation He had some degree of uncertainty about the exact process for each of these functions and this was addressed in the visit today [facility] Medical History (Updated 12/22/24 @ 09:38 by Louis Mccurdy MD) Morbid obesity Diabetes Sleep apnea Elevated cholesterol HTN (hypertension) BPH (benign prostatic hyperplasia) Vertigo Depression Spinal stenosis Chronic, continuous use of opioids Surgical History History of hemilaminectomy H/O colonoscopy Hx of appendectomy Family History Father Esophageal cancer Paternal Uncle Cancer Social History Alcohol intake: current Patient Tobacco Use Status: Never used Tobacco Review of Systems Const Denies chills and Denies fever(s) Card Reports no additional complaints and Denies syncope Resp Denies cough GI Denies abdominal pain and Denies heartburn Reports as per HPI and Denies change in libido Neuro Denies syncope Psych Denies change in libido Endo Denies change in libido Physical Exam Const General: cooperative, healthy appearing, comfortable and no acute distress Orientation/consciousness: patient oriented x3 HEENT Face and sinus: Yes normal facial exam Mouth: moist mucous membranes Neck Neck: Yes normal visual inspection, Yes full ROM and Yes trachea midline Chest Chest palpation & inspection: normal inspection of the chest Resp Effort & Inspection: normal respiratory effort, able to speak in complete sentences and no respiratory distress GI Inspection: Yes normal to inspection Back/Spine/Pelvis Cervical Spine: normal cervical lordosis Thoracic/Lumbar Spine: thoracic and lumbar spine normal to inspection Skin General skin exam: no rashes or lesions noted Neuro General: patient oriented x3, gait normal, tone normal and moves all extremities Extrem General: Yes normal to inspection and Yes capillary refill normal Assessment & Plan Assessment & Plan (1) Hypogonadism in male: Code(s): E29.1 - Testicular hypofunction Category: Medical Plan Three-month follow-up labs Trial testosterone gel Orders: Orders Testosterone, Free/Total 3 Months E29.1 - Testicular hypofunction Medications: New testosterone apply 2 pumps over max area - alternate shoulders on alternate days 2 pumps topical DAILY 75 grams 2RF 30 days E29.1 - Testicular hypofunction, R79.89 - Other specified abnormal findings of blood chemistry Patient Instructions: This note is constructed using voice recognition software. While every effort has been made to ensure accuracy slide fasteners inspector errors may have been included. Imaging studies, laboratory and physical exam results were discussed and reviewed in detail. No major barriers to patient understanding were identified. An opportunity to ask questions regarding the treatment plan was provided. All questions were answered. The patient expressed understanding and agreement with the above treatment plan. The patient is aware they should contact our office by phone for worsening of their current condition or the appearance of new urologic symptoms. Compliance is encouraged with any medications and followup testing that is ordered. It is a privilege to participate in the urologic care of your patient. If you have any questions or concerns regarding treatment for the above conditions, or other urologic issues, please do not hesitate to contact me. The office telephone contact is [phone]. Sincerely, Dr Louis Mccurdy MD, [facility] - Urology Compassionate Specialist Care for the Genitourinary System Coding Level of Care Code Est Pt Level 4 (62278) Complex EM visit Add On G2211 Diagnoses Hypogonadism in male E29.1
--- OUTSIDE RECORDS SUMMARY | 2024-12-22 09:49 | XMS_ITS | Clinical Summary ---
Author Organization [facility] Address [address] [place] [address] Care Team Providers Care Structural Fitter Name Role Phone Unavailable Primary Care Provider [...] Care Team (Late st Contact Info) Description 01/11/2025 1:00 PM EDT Office Visit [facility] [address] [place] [phone] Yojana Knight FNP [address] [place] [address] Health Maintenance Due Date Last Done Comments Hepatitis C Screening 1950 Lipid Screening 1950 Tobacco Screening 1949 Hypertension Screening (#1) 11/04/1967 Imm-DTaP/Tdap/Td (1 - Tdap) 1968 CT Colonography 1994 Colonoscopy 1994 Colorectal Cancer Screening 1994 FIT/gFOBT 1994 Fecal DNA 1994 Flexible Sigmoidoscopy 1994 Falls Prevention 2014 Alcohol and Drug Screen 08/26/2024 Depression Annual Screen 08/26/2024 [id number] () 10/27/2024 04/29/2024, 05/27/2023, 06/12/2022, Additional history exists Imm-Zoster, Recombinant Completed 04/17/20, 03/23/2022, 04/29/2013 Imm-Influenza Completed 04/29/2024, 03/27, 05/11/2022, Additional history exists Imm-Pneumococcal 65+ Completed 08/12/2024 Insurance [facility]
--- OUTSIDE RECORDS SUMMARY | 2024-12-22 09:50 | XMS_ITS | Patient Health Record ---
Author Organization [facility] Address [address] [facility] [address] [facility] [address] Care Team Providers Care Laborer [place] Name Role Phone Yvon Mckoy Jr, MD Primary Care Provider Unavail able Benyambar Nikkie Unavailable [phone] Allergies Allergen (clinical drug ingredient) Drug/Non Drug [...] disorder associated with type II diabetes mellitus (939740023) Type 2 diabetes mellitus with other diabetic neurological complication (E11.49) Active confirmed Problem Gout (79970326) Gout of left foot (M10.9) Active confirmed Rx drug management (4) Problem Gout (48737072) Gout of right foot (M10.9) Active confirmed Rx drug management (4) Problem 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 (479195223) 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 Rx drug management (4) Problem Chronic gouty arthritis (71749856) 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) Active confirmed Rx drug management (4) Plan Of Treatment No Information Insurance Providers Payer Name Payer Address Payer Phone Subscriber Number Group Number Insured Name Patient Relationship to Insured Coverage Start Date Coverage End Date Medicare National Govt Sv[employer] Inc [address] [place] [address] [phone] [id number] Cole Taylor Self - patient is the insured AARP Secondary to Medicare [address] [place] [address] [id number] Cole Taylor Self - patient is the insured Medical (General) History Medical History History ICD Code Back,Hip,and Knee pain type II diabetes Diverticulosis Gout High blood pressure Sciatica Chicken pox Arthritis Numbness Diabetic Reflux ( GERD) Surgical History Surgery Date(Month/Year) back 06/19/2010 tonsills 1970s
--- OUTSIDE RECORDS SUMMARY | 2024-12-22 09:50 | XMS_ITS | Data Portability ---
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 [email or web address] Not available 03/24/2024 11:30:23 06/26/2024 06/26/2024 Cole [...] to contact his PCP. [email or web address] Not available 10/16/2024 10:30:15 12/01/2024 12/01/2024 Cole Taylor is a 74 year old man with complaints of low [...] to contact his PCP. [email or web address] Not available 12/01/2024 09:41:25 Plan of Treatment Reminders Order Date Submit [...] Modified By Organization Details Last Modified Time 03/24/2024 [id number] He was advised against bed rest lasting longer than four days and to continue activities as tolerated. [email or web address] Not available 03/24/2024 11:30:26 06/26/2024 [id number] He was advised against bed rest lasting longer than four days and to continue activities as tolerated. [email or web address] Not available 06/26/2024 11:25:03 07/15/2024 07727 He was advised against bed rest lasting longer than four days and to continue activities as tolerated. [email or web address] Not available 07/15/2024 08:57:20 10/16/2024 01201 He was advised against bed rest lasting longer than four days and to continue activities as tolerated. [email or web address] Not available 10/16/2024 10:30:19 12/01/2024 [id number] He was advised against bed rest lasting longer than four days and to continue activities as tolerated. [email or web address] Not available 12/01/2024 09:40:09 Reason for Referral None Reported. Problems Name Problem SNOMED Code Status Onset Date Resolution Date Notes Provider Name and Address Organization Details Recorded Time Spondylosis without myelopathy [id number] Justin schmidt MD [address] , [address], [place], [address], [place] [facility] 6 13:41:20 Muscle pain 77635754 Justin schmidt MD [address] , [address], [place], [address], [place] [facility] 6 13:41:20 Spinal stenosis of lumbar region 48602048 Justin schmidt MD [address] , [address], [place], [address], [place] [facility] 6 13:41:20 Lumbosacral radiculitis 46271639 Justin schmidt MD [address] , [address], [place], [address], [place] [facility] 13:41:20 Pseudoclaud ication syndrome Completed 06/24/2013 Partha schmidt MD [address] , [address], [place], [address], [place] [facility] 13:37:56 Diabetes mellitus 71902108 Active Partha schmidt MD [address] , [address], [place], [address], [place] [facility] 6 13:41:20 Shoulder joint pain 871545203 Justin schmidt MD [address] , [address], [place], [address], [place] [facility] 6 13:41:20 Degeneratio n of interverteb ral disc 11059732 Active Partha schmidt MD [address] , [address], [place], [address], [place] [facility] 6 13:41:20 Problem Notes None recorded. Procedures Surgical History Date Name Laterality Status Provider Name and Address Organization Details Recorded Time 12/02/19 25 Lumbar Epidural steroid injection under fluoroscopic guidance completed Partha Mike MD [address] , [address], [facility] [place], [address], [place] [facility] 12/01/2024 09:40:48 07/15/20 24 Lumbar Epidural steroid injection under fluoroscopic guidance completed Partha Mike MD [address] , [address], [facility] [place], [address], [place] [facility] 07/15/2024 08:57:51 03/24/20 24 Lumbar Epidural steroid injection under fluoroscopic guidance completed Partha Mike MD [address] , [address], [facility] [place], [address], [place] [facility] 03/24/2024 11:30:56 12/04/19 24 Lumbar Epidural steroid injection under fluoroscopic guidance completed Partha Mike MD [address] , [address], [place], [address], [place] [facility] 12/04/2023 13:40:41 06/12/20 23 Lumbar Epidural steroid injection under fluoroscopic guidance completed Partha Mike MD [address] , [address], [place], [address], [place] [facility] 06/12/2023 15:01:20 01/09/20 23 Lumbar Epidural steroid injection under fluoroscopic guidance completed Partha Mike MD [address] , [address], [place], [address], [place] [facility] 01/08/2023 15:00:42 10/23/19 23 Lumbar Epidural steroid injection under fluoroscopic guidance completed Patrha Mike MD [address] , [address], [place], [address], [place] [facility] 10/23/2022 15:03:01 07/31/20 22 Lumbar Epidural steroid injection under fluoroscopic guidance completed Partha Mike MD [address] , [address], [place], [address], [place] [facility] 07/31/2022 13:25:34 04/25/20 22 Lumbar Epidural steroid injection under fluoroscopic guidance completed Partha Mike MD [address] , [address], [facility] [place], [address], [place] [facility] 04/25/2022 10:35:19 01/03/20 22 Lumbar Epidural steroid injection under fluoroscopic guidance completed Partha Mike MD [address] , [address], [place], [address], [place] [facility] 01/02/2022 16:29:21 10/04/19 22 Sacroiliac Joint Steroid Injections, using Fluoroscopy completed Partha Mike MD [address] , [address], [place], [address], [place] [facility] 10/04/2021 10:59:56 07/25/20 21 Lumbar Epidural steroid injection under fluoroscopic guidance completed Partha Mike MD [address] , [address], [place], [address], [place] [facility] 07/25/2021 10:59:40 04/18/20 21 Lumbar Epidural steroid injection under fluoroscopic guidance completed Partha Mike MD [address] , [address], [place], [address], [place] [facility] 04/18/2021 10:57:10 01/04/20 21 Lumbar Epidural steroid injection under fluoroscopic guidance completed Partha Mike MD [address] , [address], [place], [address], [place] [facility] 01/03/2021 15:21:58 10/04/19 21 Lumbar Epidural steroid injection under fluoroscopic guidance completed Partha Mike MD [address] , [address], [place], [address], [place] [facility] 10/05/2020 14:16:42 07/12/20 20 Lumbar Epidural steroid injection under fluoroscopic guidance completed Partha Mike MD [address] , [address], [place], [address], [place] [facility] 07/12/2020 15:12:10 04/19/20 20 Lumbar Epidural steroid injection under fluoroscopic guidance completed Partha Mike MD [address] , [address], [place], [address], [place] [facility] 04/19/2020 11:32:47 01/12/20 20 Lumbar Epidural steroid injection under fluoroscopic guidance completed Partha Mike MD [address] , [address], [place], [address], [place] [facility] 01/14/2020 09:58:10 09/01/19 20 Lumbar Epidural steroid injection under fluoroscopic guidance completed Partha Mike MD [address] , [address], [place], [address], [place] [facility] 09/08/2019 09:56:16 06/03/20 19 Lumbar Epidural steroid injection under fluoroscopic guidance completed Partha Mike MD [address] , [address], [place], [address], [place] [facility] 06/05/2019 15:43:58 03/10/20 19 Lumbar Epidural steroid injection under fluoroscopic guidance completed Partha Mike MD [address] , [address], [place], [address], [place] [facility] 03/11/2019 13:37:47 12/10/19 19 Lumbar Epidural steroid injection under fluoroscopic guidance completed Partha Mike MD [address] , [address], [place], [address], [place] [facility] 12/10/2018 10:47:26 05/28/20 18 Lumbar Epidural steroid injection under fluoroscopic guidance completed Partha Mike MD [address] , [address], [place], [address], [place] [facility] 05/28/2018 14:21:58 01/09/20 18 Lumbar Epidural steroid injection under fluoroscopic guidance completed Partha Mike MD [address] , [address], [place], [address], [place] [facility] 01/09/2018 14:13:45 06/11/20 17 Radiofrequency of Lumbar/Sacral medial branches supplying the facets under fluoroscopic guidance completed Partha Mike MD [address] , [address], [place], [address], [place] [facility] 06/14/2017 14:37:54 04/23/20 17 Fluoroscopic Guided Lumbar Facet Steroid Injections of levels completed Partha Mike MD [address] , [address], [place], [address], [place] [facility] 04/24/2017 10:38:56 02/20/20 17 Fluoroscopic Guided Lumbar Facet Steroid Injections of levels completed Partha Mike MD [address] , [address], [place], [address], [place] [facility] 02/19/2017 15:04:05 11/09/19 17 Fluoroscopic Guided Lumbar Facet Steroid Injections of levels completed Partha Mike MD [address] , [address], [place], [address], [place] [facility] 11/08/2016 11:54:16 07/04/20 16 Lumbar Epidural steroid injection under fluoroscopic guidance completed Partha Mike MD [address] , [address], [place], [address], [place] [facility] 07/09/2016 14:02:15 05/22/20 16 Radiofrequency of Lumbar/Sacral medial branches supplying the facets under fluoroscopic guidance completed Partha Mike MD [address] , [address], [place], [address], [place] [facility] 05/31/2016 12:13:20 04/03/20 16 Fluoroscopic Guided Lumbar Facet Steroid Injections of levels completed Partha Mike MD [address] , [address], [place], [address], [place] [facility] 04/03/2016 13:41:21 03/06/20 16 Fluoroscopic Guided Lumbar Facet Steroid Injections of levels completed Partha Mike MD [address] , [address], [place], [address], [place] [facility] 03/08/2016 13:50:00 11/10/19 16 Trigger Point Injections under ultrasound guidance completed Partha Mike MD [address] , [address], [place], [address], [place] [facility] 11/10/2015 14:02:24 10/26/19 16 Fluoroscopic Guided Lumbar Facet Steroid Injections of levels completed Partha Mike MD [address] , [address], [place], [address], [place] [facility] 10/26/2015 09:40:25 09/28/19 16 Fluoroscopic Guided Lumbar Facet Steroid Injections of levels completed Partha Mike MD [address] , [address], [place], [address], [place] [facility] 09/28/2015 13:48:43 03/14/20 15 Lumbar Epidural steroid injection under fluoroscopic guidance completed Partha Mike MD [address] , [address], [place], [address], [place] [facility] 03/14/2015 14:26:28 11/23/19 15 Lumbar Epidural steroid injection under fluoroscopic guidance completed Partha Mike MD [address] , [address], [place], [address], [place] [facility] 11/23/2014 14:50:01 06/14/20 14 Lumbar Epidural steroid injection under fluoroscopic guidance completed Partha Mike MD [address] , [address], [place], [address], [place] [facility] 06/14/2014 11:20:52 03/01/20 14 Lumbar Epidural steroid injection under fluoroscopic guidance completed Partha Mike MD [address] , [address], [place], [address], [place] [facility] 03/02/2014 14:36:10 12/09/19 14 Intra-articular shoulder steroid injection under ultrasound guidance completed Partha Mike MD [address] , [address], [place], [address], [place] [facility] 12/08/2013 18:00:06 09/21/19 14 Lumbar Epidural steroid injection under fluoroscopic guidance completed Partha Mike MD [address] [facility] , [address], [place], [address], [place] [facility] 09/22/2013 08:45:16 06/23/20 13 Lumbar Epidural steroid injection under fluoroscopic guidance completed Partha Mike MD [address] [facility] , [address], [place], [address], [place] [facility] 06/24/2013 09:47:40 02/03/20 13 Lumbar Epidural steroid injection under fluoroscopic guidance completed Partha Mike MD [address] [facility] , [address], [place], [address], [place] [facility] 02/03/2013 15:20:43 11/11/19 13 Lumbar Epidural steroid injection under fluoroscopic guidance completed Partha Mike MD [address] [facility] , [address], [place], [address], [place] [facility] 11/10/2012 13:43:13 08/11/20 12 Lumbar Epidural steroid injection under fluoroscopic guidance completed Partha Mike MD [address] [facility] , [address], [place], [address], [place] [facility] 08/12/2012 09:13:07 11/26/19 12 Lumbar Epidural steroid injection under fluoroscopic guidance completed Partha Mike MD [address] [facility] , [address], [place], [address], [place] [facility] 11/27/2011 10:25:45 10/16/19 12 Lumbar Epidural steroid injection under fluoroscopic guidance completed Partha Mike MD [address] [facility] , [address], [place], [address], [place] [facility] 10/17/2011 09:56:36 Back Surgery completed Amaris Johnson [place] - [facility] 12/01/2013 09:38:49 Other completed Amaris Johnson [place] - [facility] 11/22/2014 12:00:10 Other completed Amaris Johnson [facility] 10/04/2011 09:30:27 Other completed Amaris Johnson [facility] - [facility] 10/04/2011 09:30:27 Tonsillectomy completed Amaris Johnson [place] [facility] 10/04/2011 09:30:27 Appendectomy completed Amaris Johnson [place] - [facility] 11/05/2018 [...] Not Available Not Available No t Available Laxative (bisacodyl ) 5 mg tablet,del ayed release TAKE 2 TABLETS ORALLY BEDTIME FOR 2 DAYS active Not Available Not Available No [...] Not Available Not Available N ot Available oxycodone 10 mg tablet TAKE 1 TABLET BY MOUTH TWICE A DAY FOR 28 DAYS active Not Available Not Available No t Available diclofenac 1 % topical gel APPLY 4 GRAMS TOPICALL Y TO THE AFFECTED AREA FOUR TIMES DAILY. LABS DUE. ORDERS IN THE SYSTEM. PLEASE GOTO ANY [facility] active Not Available Not Available No t Available GaviLyte-G 236 gram-22.74 gram-6.74 gram-5.86 gram oral solution PLEASE SEE ATTACHED FOR DETAILED DIRECTIO NS active Not Available Not Available No t Available OneTouch Delica Lancets 33 gauge active Not Available Not Available Not Available Accu-Chek FastClix Lancing Device active Not Available Not Available Not Available Ilevro 0.3 % eye drops,susp ension INSTIL 1 DROP DAILY TO SURGIVAL EYE. START 2 DAYS PRIOR TO SURGERY. TAPER DIRECETD 05/04 completed Not Available Not Available Not Available Fluvirin 4596-5416 45 mcg (15 mcg x 3)/0.5 mL [...] Not Available No t Available Fluzone High-Dose 7304-2150 (PF) 180 mcg/0.5 mL intramuscu lar syringe [...] 97 % 97 % 10 41.3 kg/m2 221931. 86 g 166 mm[Hg] 84 mm[Hg] Partha schmidt MD [address] , [address], [place], [address], [place] [facility] [...] 97 % 97 % 9 40.3 kg/m2 596550. 72 g 136 mm[Hg] 85 mm[Hg] Partha schmidt MD [address] , [address], [place], [address], [place] [facility] 5 09:46:02 Date Recorded Body height Heart rate Oxygen saturation Oxygen saturation in Arterial blood by Pulse oximetry Systolic blood pressure Diastolic blood pressure Provider Name and Address Organization Details Last Updated DateTime 5 175.26 cm 76 /min 99 % 99 % 154 mm[Hg] 78 mm[Hg] Griselda Tena [facility] - [facility] 5 09:14:36 Social History Question Answer Notes LastModified by Organizat ion Details LastModified Time Tobacco Smoking Status Former Smoker Quit > 20 years Not Available [employer] 06/10/2020 03:16:11 What Is Your Level Of Alcohol Consumption? Occasional [id number] Information not available 06/10/2020 Are You Currently Employed? No Workers Comp [id number] Information not available 06/10/2020 Which Illicit Or Recreational Drugs Have You Used? 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 With Others Information not available 10/04/2011 Marital Status [email or web address] Informatio n not available 10/04/2011 What Was The Date Of Your Most Recent Tobacco Screening? 03/11/2019 [id number] Information not available 06/10/2020 Sex: Unknown Functional [...] Diagnosis Note [id number] [facility] [address] [place] [address] 10/04/2011 08:43:25 10/04/2011 15:11:17 9182 [facility] [address] [place] [address] 10/16/2011 13:03:10 10/16/2011 15:55:21 50852 [facility] [address] [place] [address] 11/14/2011 08:53:08 11/14/2011 16:02:29 81052 [facility] [address] [place] [address] 11/26/2011 13:47:13 11/27/2011 09:25:30 90589 [facility] [address] [place] [address] 01/10/2012 12:59:24 01/10/2012 15:51:49 88937 Partha Mike MD [facility] [address] [place] [address] 07/29/2012 09:56:41 07/29/2012 15:35:09 70904 Partha Mike MD [facility] [address] [place] [address] 08/11/2012 13:15:02 08/11/2012 15:26:03 29193 Partha Mike MD [facility] [address] [place] [address] 09/23/2012 13:36:52 09/23/2012 15:52:57 84037 Partha Mike MD [facility] [address] [place] [address] 11/10/2012 10:02:01 11/10/2012 15:08:49 00484 Partha Mike MD [facility] [address] [place] [address] 01/15/2013 09:03:50 01/15/2013 09:44:06 62872 Partha Mike MD [facility] [address] [place] [address] 02/02/2013 12:53:42 02/02/2013 15:44:04 90989 [facility] [address] [place] [address] 03/31/2013 09:50:54 03/31/2013 15:57:47 16308 [facility] [address] [place] [address] 06/23/2013 13:47:03 06/23/2013 15:44:00 Diabetes mellitus 20823564 Spinal deepika nosis of lumbar region 58877316 Lumbosacra l radiculitis 49934860 13920 [facility] [address] [place] [address] 09/21/2013 09:40:53 09/21/2013 16:06:00 Spinal stenosis of lumbar region 00328698 Diabetes mellitus 01926734 Lumbosacra l radiculitis 56712578 98404 [facility] [address] [place] [address] 11/10/2013 09:59:56 11/13/2013 09:32:38 Diabetes mellitus 76202617 Lumbosacra l radiculitis 78325792 Spinal deepika nosis of lumbar region 76269078 Pseudoclau dication syndrome 84220088 33201 [facility] [address] [place] [address] 12/08/2013 14:43:41 12/08/2013 18:01:06 Spinal stenosis of lumbar region 08987129 Diabetes mellitus 26673301 Lumbosacra l radiculitis 55358166 Shoulder joint pain 722163491 76338 Amaris Johnson [facility] [address] [place] [address] 12/16/2013 10:48:12 12/16/2013 14:53:27 Shoulder joint pain 351310998 Degenerati on of intervertebral disc 94298191 Spinal deepika nosis of lumbar region 80011167 Diabetes mellitus 61698299 Lumbosacra l radiculitis 58568549 67284 [facility] [email or web address] [facility] [place] [address] 02/02/2014 09:34:56 02/02/2014 10:18:41 Spinal stenosis of lumbar region 53605960 Degenerati on of intervertebral disc 16150206 Lumbosacra l radiculitis 89912614 Pseudoclau dication syndrome 76486992 06341 [facility] [email or web address] [facility] [place] [address] 03/01/2014 11:09:53 03/02/2014 14:37:45 Spinal stenosis of lumbar region 09038591 Degenerati on of intervertebral disc 13563421 Diabetes mellitus 26922744 Lumbosacra l radiculitis 64834595 Shoulder joint pain 051818273 98816 [facility] [email or web address] [facility] [place] [address] 05/26/2014 09:28:16 05/26/2014 10:59:20 Spinal stenosis of lumbar region 95840914 Degenerati on of intervertebral disc 04180820 Diabetes mellitus 31502901 Lumbosacra l radiculitis 75125956 Shoulder joint pain 403826864 06353 [facility] [email or web address] [facility] [place] [address] 06/14/2014 10:27:48 06/14/2014 11:25:21 Spinal stenosis of lumbar region 84877736 Degenerati on of intervertebral disc 01714050 Diabetes mellitus 12546641 Lumbosacra l radiculitis 40217586 Shoulder joint pain 142706118 11401 [facility] [email or web address] [facility] [place] [address] 07/01/2014 13:08:47 07/02/2014 11:31:47 Spinal stenosis of lumbar region 66907054 Degenerati on of intervertebral disc 40713363 Diabetes mellitus 62998646 Lumbosacra l radiculitis 53037199 57242 [facility] [email or web address] [facility] [place] [address] 07/15/2014 14:20:26 07/18/2014 10:47:48 Spinal stenosis of lumbar region 07164894 Degenerati on of intervertebral disc 93006002 Diabetes mellitus 27733616 Lumbosacra l radiculitis 39358672 Shoulder joint pain 262467792 29291 [facility] [address] [place] [address] 11/22/2014 11:25:34 11/23/2014 14:51:48 Spinal stenosis of lumbar region 43150478 Degenerati on of intervertebral disc 44942557 Diabetes mellitus 36973554 Lumbosacra l radiculitis 02426390 Shoulder joint pain 736373707 02768 [facility] [email or web address] [place] [address] 02/23/2015 11:44:55 02/28/2015 11:49:49 Spinal stenosis of lumbar region 51553305 Degenerati on of intervertebral disc 27292741 Diabetes mellitus 21436615 Lumbosacra l radiculitis 80107264 Shoulder joint pain 784128015 94871 [facility] [address] [place] [address] 03/14/2015 09:26:00 03/14/2015 14:28:25 Spinal stenosis of lumbar region 20230988 Degenerati on of intervertebral disc 61696546 Diabetes mellitus 52207050 Lumbosacra l radiculitis 38029640 Shoulder joint pain 594201510 17103 Partha Mike MD [facility] [address] [place] [address] 09/21/2015 08:46:34 09/21/2015 10:05:28 Spinal stenosis of lumbar region 34396522 M48.06 Degenerati on of intervertebral disc 14620064 M51.9 Diabetes mellitus 173993 09 E11.9 Lumbosacra l radiculitis 63301271 M54.17 Shoulder joint pain 2679 16529 M25.519 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 89669420 M47.816 14447 Partha Mike MD [facility] [address] [place] [address] 09/28/2015 10:28:09 09/28/2015 13:50:48 Spinal stenosis of lumbar region 40230706 M48.06 Degenerati on of intervertebral disc 17343787 M51.17 M51.9 Diabetes mellitus 077919 09 E11.9 Lumbosacra l radiculitis 49220863 M54.17 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 58870685 M47.816 Shoulder joint pain 2679 35408 M25.511 M25.519 39494 Partha Mike MD [facility] [address] [place] [address] 10/25/2015 11:19:24 10/26/2015 08:58:26 Spinal stenosis of lumbar region 52953294 M48.06 Degenerati on of intervertebral disc 16400397 M51.17 M51.9 Diabetes mellitus 002522 09 E11.9 Lumbosacra l radiculitis 07727524 M54.17 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 22584772 M47.816 Shoulder joint pain 2679 41108 M25.511 M25.519 10892 Partha Mike MD [facility] [address] [place] [address] 10/26/2015 08:59:15 10/26/2015 11:09:06 Spondylosis without myelopathy 19008416 M47.816 Spinal deepika nosis of lumbar region 41008017 M48.06 Degenerati on of intervertebral disc 97974407 M51.17 M51.9 Diabetes mellitus 078871 09 E11.9 Lumbosacra l radiculitis 05554978 M54.17 Shoulder joint pain 2679 88242 M25.519 46252 Partha Mike MD [facility] [address] [place] [address] 11/04/2015 09:01:41 11/04/2015 10:57:41 Spondylosis without myelopathy 72230697 M47.816 Spinal deepika nosis of lumbar region 49226210 M48.06 Degenerati on of intervertebral disc 20089714 M51.17 M51.9 Diabetes mellitus 136608 09 E11.9 Lumbosacra l radiculitis 38969036 M54.17 Shoulder joint pain 2679 48628 M25.511 Muscle pain 93732723 M79 .1 72560 Partha Mike MD PAIN OFFICE [address] [place] [address] 11/10/2015 09:34:55 11/10/2015 14:03:07 Muscle pain 47159710 M79.1 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 07667321 M47.816 Degenerati on of intervertebral disc 49256049 M51.17 M51.9 Spinal deepika nosis of lumbar region 41094080 M48.06 Diabetes mellitus 309120 09 E11.9 Lumbosacra l radiculitis 64336192 M54.17 Shoulder joint pain 2679 01804 M25.511 22439 Partha Mike MD PAIN OFFICE [address] [place] [address] 11/30/2015 13:31:23 11/30/2015 14:19:05 Muscle pain 76467589 M79.1 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 76153066 M47.816 Spinal deepika nosis of lumbar region 35791841 M48.06 Lumbosacra l radiculitis 04039872 M54.17 Degenerati on of intervertebral disc 75129029 M51.17 M51.9 Diabetes mellitus 463417 09 E11.9 Shoulder joint pain 2679 41008 M25.511 01643 Partha Mike MD PAIN OFFICE [address] [place] [address] 02/10/2016 09:04:14 02/10/2016 10:56:58 Spinal stenosis of lumbar region 57173669 M48.06 Degenerati on of intervertebral disc 80096591 M51.17 M51.9 Muscle pain 10362876 M79 .1 Diabetes mellitus 021035 09 E11.9 Lumbosacra l radiculitis 12763592 M54.17 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 79348155 M47.816 Shoulder joint pain 2679 11786 M25.511 M25.519 85655 Partha Mike MD PAIN OFFICE [address] [place] [address] 03/02/2016 08:42:55 03/04/2016 08:55:28 Spinal stenosis of lumbar region 15037175 M48.06 Degenerati on of intervertebral disc 71151541 M51.17 M51.9 Muscle pain 76014441 M79 .1 Diabetes mellitus 543288 09 E11.9 Lumbosacra l radiculitis 91884754 M54.17 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 17761138 M47.816 Shoulder joint pain 2679 71953 M25.511 M25.519 72859 Partha Mike MD PAIN OFFICE [address] [place] [address] 03/06/2016 14:22:25 03/08/2016 13:51:55 Spondylosis without myelopathy 79948191 M47.816 Spinal deepika nosis of lumbar region 19259911 M48.06 Degenerati on of intervertebral disc 01202359 M51.17 M51.9 Muscle pain 19646868 M79 .1 Diabetes mellitus 433345 09 E11.9 Lumbosacra l radiculitis 14440753 M54.17 Shoulder joint pain 2679 92511 M25.511 M25.519 21638 Partha Mike MD PAIN OFFICE [address] [place] [address] 04/03/2016 09:43:41 04/03/2016 13:44:34 Spondylosis without myelopathy 36521001 M47.816 Degenerati on of intervertebral disc 86261322 M51.17 M51.9 Spinal deepika nosis of lumbar region 70615355 M48.06 Muscle pain 07816637 M79 .1 Diabetes mellitus 804286 09 E11.9 Lumbosacra l radiculitis 89778547 M54.17 Shoulder joint pain 2679 70394 M25.511 M25.519 38857 Partha Mike MD PAIN OFFICE [address] [place] [address] 05/04/2016 11:06:28 05/04/2016 15:53:59 Spondylosis without myelopathy 98355749 M47.816 Spinal deepika nosis of lumbar region 45844642 M48.06 Degenerati on of intervertebral disc 86373644 M51.17 M51.9 Muscle pain 68170754 M79 .1 Diabetes mellitus 402238 09 E11.9 Lumbosacra l radiculitis 79565820 M54.17 Shoulder joint pain 2679 29436 M25.511 M25.519 65657 Partha Mike MD PAIN OFFICE [address] [place] [address] 05/22/2016 14:45:55 05/31/2016 13:21:25 Spondylosis without myelopathy 36766769 M47.816 Spinal deepika nosis of lumbar region 13140858 M48.06 Degenerati on of intervertebral disc 91909954 M51.17 M51.9 Muscle pain 81807445 M79 .1 Diabetes mellitus 854417 09 E11.9 Lumbosacra l radiculitis 56480652 M54.17 Shoulder joint pain 2679 16686 M25.511 M25.519 65495 Partha Mike MD PAIN OFFICE [address] [place] [address] 06/18/2016 13:20:37 06/18/2016 20:15:12 Spinal stenosis of lumbar region 57241511 M48.06 Degenerati on of intervertebral disc 73959055 M51.17 M51.9 Diabetes mellitus 627165 09 E11.9 Lumbosacra l radiculitis 28359696 M54.17 Shoulder joint pain 2679 23780 M25.511 M25.519 47217 Partha Mike MD PAIN OFFICE [address] [place] [address] 07/04/2016 10:32:34 07/08/2016 10:58:02 Spinal stenosis of lumbar region 98192416 M48.06 Degenerati on of intervertebral disc 69859780 M51.17 M51.9 Diabetes mellitus 808097 09 E11.9 Lumbosacra l radiculitis 11448157 M54.17 Shoulder joint pain 2679 61728 M25.511 M25.519 97638 Partha Mike MD PAIN OFFICE [address] [facility] [place] [address] 10/15/2016 11:19:51 10/28/2016 19:56:56 Shoulder joint pain 162038264 M25.511 M25.512 Diabetes mellitus 171244 09 E11.9 Muscle pain 05643018 M79 .1 14307 Partha Mike MD PAIN OFFICE [address] [facility] [place] [address] 11/01/2016 09:40:43 11/01/2016 11:47:54 Spinal stenosis of lumbar region 87298295 M48.06 Degenerati on of intervertebral disc 77288995 M51.17 M51.9 Diabetes mellitus 375236 09 E11.9 Lumbosacra l radiculitis 53410138 M54.17 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 26016990 M47.816 Shoulder joint pain 2679 67829 M25.511 M25.519 59786 Partha Mike MD PAIN OFFICE [email or web address] [facility] [place] [address] 11/08/2016 10:31:25 11/08/2016 12:00:00 Spinal stenosis of lumbar region 18116527 M48.06 Degenerati on of intervertebral disc 60611982 M51.17 M51.9 Diabetes mellitus 219434 09 E11.9 Lumbosacra l radiculitis 70315999 M54.17 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 78671411 M47.816 Shoulder joint pain 2679 14441 M25.511 M25.519 91111 Partha Mike MD PAIN OFFICE [email or web address] [facility] [place] [place] [address] 12/10/2016 13:05:58 12/14/2016 09:38:18 Spinal stenosis of lumbar region 75536701 M48.06 Degenerati on of intervertebral disc 45840979 M51.17 M51.9 Diabetes mellitus 237662 09 E11.9 Lumbosacra l radiculitis 99516325 M54.17 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 60879689 M47.816 Shoulder joint pain 2679 46699 M25.511 M25.519 52246 Partha Mike MD PAIN OFFICE [address] [facility] [place] [place] [address] 01/28/2017 13:25:41 01/31/2017 16:32:23 Spinal stenosis of lumbar region 83018676 M48.06 Degenerati on of intervertebral disc 28106225 M51.17 M51.9 Diabetes mellitus 364138 09 E11.9 Lumbosacra l radiculitis 39512821 M54.17 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 46877582 M47.816 Shoulder joint pain 2679 24219 M25.511 M25.519 25243 Partha Mike MD PAIN OFFICE [address] [facility] [place] [place] [address] 02/19/2017 08:59:03 02/19/2017 16:04:37 Spinal stenosis of lumbar region 20842048 M48.06 Degenerati on of intervertebral disc 52109663 M51.17 M51.9 Diabetes mellitus 848033 09 E11.9 Lumbosacra l radiculitis 65518567 M54.17 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 09759267 M47.816 Shoulder joint pain 2679 77874 M25.511 M25.519 16271 Partha Mike MD PAIN OFFICE [address] [facility] [place] [place] [address] 04/03/2017 08:29:28 04/05/2017 11:42:54 Spinal stenosis of lumbar region 73462227 M48.06 Degenerati on of intervertebral disc 04021170 M51.17 M51.9 Muscle pain 81213997 M79 .1 Diabetes mellitus 839933 09 E11.9 Lumbosacra l radiculitis 28462565 M54.17 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 30961368 M47.816 Shoulder joint pain 2679 11041 M25.511 M25.519 30018 Partha Mike MD PAIN OFFICE [address] [facility] [place] [place] [address] 04/23/2017 14:01:21 04/24/2017 11:10:29 Spondylosis without myelopathy 35439482 M47.816 Spinal deepika nosis of lumbar region 02175789 M48.06 Degenerati on of intervertebral disc 13695574 M51.17 M51.9 Muscle pain 29212458 M79 .1 Diabetes mellitus 894367 09 E11.9 Lumbosacra l radiculitis 26500110 M54.17 Shoulder joint pain 2679 09011 M25.511 M25.519 28912 Partha Mike MD PAIN OFFICE [address] [place] [address] 05/22/2017 14:27:24 06/03/2017 11:45:59 Spondylosis without myelopathy 65127573 M47.816 Spinal deepika nosis of lumbar region 96037632 M48.062 Degenerati on of intervertebral disc 74027015 M51.17 M51.9 Muscle pain 61787212 M79 .1 Diabetes mellitus 119858 09 E11.9 Lumbosacra l radiculitis 79943491 M54.17 Shoulder joint pain 2679 16234 M25.511 M25.519 91210 Partha Mike MD PAIN OFFICE [address] [place] [address] 06/11/2017 14:41:01 06/16/2017 15:47:44 Spondylosis without myelopathy 97362811 M47.816 Spinal deepika nosis of lumbar region 39335731 M48.062 Degenerati on of intervertebral disc 90073815 M51.17 M51.9 Muscle pain 22797651 M79 .1 Diabetes mellitus 275059 09 E11.9 Lumbosacra l radiculitis 58439062 M54.17 Shoulder joint pain 2679 61778 M25.511 M25.519 48015 Partha Mike MD PAIN OFFICE [address] [place] [address] 07/22/2017 10:58:27 07/24/2017 15:55:08 Lumbosacral radiculitis 76703517 M54.17 Spinal deepika nosis of lumbar region 98726122 M48.062 Degenerati on of intervertebral disc 17464510 M51.17 M51.9 Diabetes mellitus 720595 09 E11.9 23083 Partha Mike MD PAIN OFFICE [address] [place] [address] 08/02/2017 09:59:43 08/02/2017 11:37:37 Spondylosis without myelopathy 00340891 M47.816 Spinal deepika nosis of lumbar region 92608289 M48.062 Degenerati on of intervertebral disc 87489901 M51.17 M51.9 Muscle pain 98711237 M79 .1 Diabetes mellitus 371173 09 E11.9 Lumbosacra l radiculitis 31121271 M54.17 Shoulder joint pain 2679 23409 M25.511 M25.519 02154 Partha Mike MD PAIN OFFICE [address] [place] [address] 12/19/2017 14:28:38 12/19/2017 15:54:30 Spinal stenosis of lumbar region 13877178 M48.062 Degenerati on of intervertebral disc 02095060 M51.17 M51.9 Diabetes mellitus 000160 09 E11.9 Lumbosacra l radiculitis 41886434 M54.17 Shoulder joint pain 2679 91671 M25.511 M25.519 01895 Partha Mike MD PAIN OFFICE [address] [place] [address] 01/08/2018 11:03:45 01/09/2018 14:15:32 Spinal stenosis of lumbar region 92511867 M48.062 Degenerati on of intervertebral disc 12042169 M51.17 M51.9 Diabetes mellitus 092849 09 E11.9 Lumbosacra l radiculitis 89907034 M54.17 Shoulder joint pain 2679 21906 M25.511 M25.519 44145 Partha Mike MD PAIN OFFICE [address] [place] [address] 05/28/2018 09:58:40 05/28/2018 15:27:55 Spinal stenosis of lumbar region 73927182 M48.062 Degenerati on of intervertebral disc 14112685 M51.17 M51.9 Diabetes mellitus 626343 09 E11.9 Lumbosacra l radiculitis 75907872 M54.17 Shoulder joint pain 2679 04937 M25.511 M25.519 32726 Partha Mike MD PAIN OFFICE [address] [place] [address] 10/20/2018 11:37:41 10/20/2018 13:56:50 Spinal stenosis of lumbar region 59066055 M48.062 Degenerati on of intervertebral disc 32909599 M51.17 M51.9 Diabetes mellitus 879850 09 E11.9 Lumbosacra l radiculitis 76858746 M54.17 Shoulder joint pain 2679 88766 M25.511 M25.519 98852 Partha Mike MD PAIN OFFICE [address] [place] [address] 12/09/2018 09:04:43 12/10/2018 10:50:34 Spinal stenosis of lumbar region 80159276 M48.062 Degenerati on of intervertebral disc 37502896 M51.17 M51.9 Diabetes mellitus 856282 09 E11.9 Lumbosacra l radiculitis 03510855 M54.17 Shoulder joint pain 2679 36943 M25.511 M25.519 49876 Partha Mike MD PAIN OFFICE [address] [place] [address] 03/10/2019 09:36:54 03/11/2019 13:42:01 Spinal stenosis of lumbar region 58419816 M48.062 Degenerati on of intervertebral disc 77457410 M51.17 M51.9 Diabetes mellitus 096807 09 E11.9 Lumbosacra l radiculitis 55270095 M54.17 Shoulder joint pain 2679 60853 M25.511 M25.519 Muscle pain 57567288 M79 .18 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 00768610 M47.816 72262 Partha Mike MD PAIN OFFICE [address] [place] [address] 06/03/2019 08:17:28 06/05/2019 15:46:22 Spinal stenosis of lumbar region 17775677 M48.062 Degenerati on of intervertebral disc 62202917 M51.17 M51.9 Diabetes mellitus 267384 09 E11.9 Lumbosacra l radiculitis 09472251 M54.17 Shoulder joint pain 2679 87226 M25.511 M25.519 Muscle pain 63533848 M79 .18 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 82041970 M47.816 19235 Partha Mike MD SV PAIN OFFICE [address] [place] [address] 09/01/2019 13:03:14 09/08/2019 10:49:39 Spinal stenosis of lumbar region 66967186 M48.062 Degenerati on of intervertebral disc 94228528 M51.17 M51.9 Diabetes mellitus 429099 09 E11.9 Lumbosacra l radiculitis 65412858 M54.17 Shoulder joint pain 2679 53443 M25.511 M25.519 Muscle pain 72255543 M79 .18 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 86211533 M47.816 03544 Partha Mike MD PAIN OFFICE [address] [place] [address] 09/17/2019 10:01:22 09/18/2019 16:23:35 Shoulder joint pain 090752620 M25.511 M25.519 55238 Partha Mike MD SV PAIN OFFICE [address] [place] [address] 12/28/2019 11:05:53 01/12/2020 12:30:52 Spinal stenosis of lumbar region 75941577 M48.062 Degenerati on of intervertebral disc 62922313 M51.17 M51.9 Diabetes mellitus 520540 09 E11.9 Lumbosacra l radiculitis 41518519 M54.17 Shoulder joint pain 2679 54736 M25.511 M25.519 73162 Partha Mike MD SV PAIN OFFICE [address] [place] [address] 01/12/2020 13:27:29 01/14/2020 10:17:33 Spinal stenosis of lumbar region 56479095 M48.062 Degenerati on of intervertebral disc 12027881 M51.17 M51.9 Diabetes mellitus 057631 09 E11.9 Lumbosacra l radiculitis 29452360 M54.17 Shoulder joint pain 2679 11402 M25.511 M25.519 Muscle pain 28848774 M79 .18 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 21066416 M47.816 91855 Partha Mike MD PAIN OFFICE [address] [place] [address] 02/12/2020 10:33:05 02/12/2020 12:16:21 Degeneration of intervertebral disc 76676663 M51.17 M51.9 Diabetes mellitus 896390 09 E11.9 Lumbosacra l radiculitis 31227696 M54.17 Muscle pain 07382351 M79 .18 Spinal deepika nosis of lumbar region 08533059 M48.062 31613 Partha Mike MD PAIN OFFICE [address] [place] [address] 04/19/2020 11:04:03 04/19/2020 16:28:26 Spinal stenosis of lumbar region 83849780 M48.062 Degenerati on of intervertebral disc 78715651 M51.17 M51.9 Diabetes mellitus 996436 09 E11.9 Lumbosacra l radiculitis 27083199 M54.17 Shoulder joint pain 2679 72893 M25.511 M25.519 Muscle pain 15632462 M79 .18 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 43764909 M47.816 93200 Partha Mike MD PAIN OFFICE [address] [place] [address] 07/12/2020 11:35:48 07/12/2020 16:22:01 Spinal stenosis of lumbar region 41841847 M48.062 Degenerati on of intervertebral disc 29616202 M51.17 M51.9 Diabetes mellitus 756868 09 E11.9 Lumbosacra l radiculitis 04279347 M54.17 Shoulder joint pain 2679 41656 M25.511 M25.519 Muscle pain 38350937 M79 .18 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 13542511 M47.816 75704 Partha Mike MD PAIN OFFICE [address] [place] [address] 10/04/2020 11:41:18 10/05/2020 14:19:50 Spinal stenosis of lumbar region 15176407 M48.062 Degenerati on of intervertebral disc 99135442 M51.17 M51.9 Diabetes mellitus 614684 09 E11.9 Lumbosacra l radiculitis 48644289 M54.17 Shoulder joint pain 2679 50625 M25.511 M25.519 Muscle pain 04262870 M79 .18 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 71648687 M47.816 58718 Partha Mike MD PAIN OFFICE [address] [place] [address] 01/03/2021 10:40:29 01/03/2021 15:47:46 Spinal stenosis of lumbar region 36419928 M48.062 Degenerati on of intervertebral disc 39348716 M51.17 M51.9 Diabetes mellitus 810722 09 E11.9 Lumbosacra l radiculitis 95889594 M54.17 Shoulder joint pain 2679 28024 M25.511 M25.519 Muscle pain 16158812 M79 .18 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 94730883 M47.816 89991 Partha Mike MD PAIN OFFICE [address] [place] [address] 03/31/2021 11:22:58 04/03/2021 08:59:53 Spondylosis without myelopathy 79060495 M47.816 Spinal deepika nosis of lumbar region 42495273 M48.062 Degenerati on of intervertebral disc 80727347 M51.17 M51.9 Muscle pain 73140006 M79 .18 Diabetes mellitus 602988 09 E11.9 Lumbosacra l radiculitis 69173984 M54.17 Shoulder joint pain 2679 72840 M25.511 M25.519 51203 Partha Mike MD PAIN OFFICE [address] [place] [address] 04/18/2021 10:28:27 04/18/2021 13:46:52 Spinal stenosis of lumbar region 96905698 M48.062 Degenerati on of intervertebral disc 94942956 M51.17 M51.9 Diabetes mellitus 845444 09 E11.9 Lumbosacra l radiculitis 44193098 M54.17 Shoulder joint pain 2679 75504 M25.511 M25.519 Muscle pain 35086928 M79 .18 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 34432936 M47.816 64108 Partha Mike MD SV PAIN OFFICE [address] [facility] [place] [address] 07/25/2021 10:05:25 07/25/2021 15:04:09 Spinal stenosis of lumbar region 10003300 M48.062 Degenerati on of intervertebral disc 94309288 M51.17 M51.9 Diabetes mellitus 825125 09 E11.9 Lumbosacra l radiculitis 16128009 M54.17 Shoulder joint pain 2679 02615 M25.511 M25.519 Muscle pain 27672484 M79 .18 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 95506445 M47.816 15265 Partha Mike MD SV PAIN OFFICE [address] [facility] [place] [address] 10/03/2021 11:29:19 10/03/2021 14:14:03 Diabetes mellitus 09827173 E11.9 Lumbar post-laminectomy syndrome 662693117 M96.1 Inflammati on of sacroiliac joint 00560632 M46.1 40361 Partha Mike MD SV PAIN OFFICE [address] [facility] [place] [address] 10/04/2021 10:35:06 10/04/2021 16:23:26 Diabetes mellitus 38204219 E11.9 Lumbar post-laminectomy syndrome 588649967 M96.1 Inflammati on of sacroiliac joint 68599228 M46.1 59168 Partha Mike MD SV PAIN OFFICE [address] [facility] [place] [address] 10/30/2021 09:25:15 10/30/2021 09:31:03 Diabetes mellitus 06285876 E11.9 Lumbar post-laminectomy syndrome 963796447 M96.1 Inflammati on of sacroiliac joint 21258678 M46.1 13627 Partha Mike MD PAIN OFFICE [email or web address] [address] 01/02/2022 15:17:13 01/02/2022 16:35:15 Spinal stenosis of lumbar region 52571252 M48.062 Degenerati on of intervertebral disc 81176820 M51.17 M51.9 Diabetes mellitus 446732 09 E11.9 Lumbosacra l radiculitis 68735502 M54.17 Shoulder joint pain 2679 38901 M25.511 M25.519 Muscle pain 14945674 M79 .18 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 10394327 M47.816 97488 Partha Mike MD PAIN OFFICE [email or web address] [place] [address] 04/25/2022 10:05:34 04/25/2022 10:54:23 Lumbosacral radiculopathy 3269213 M54.17 Degenerati on of lumbar intervertebral disc 42829848 M51.36 27198 Partha Mike MD PAIN OFFICE [email or web address] [address] 07/31/2022 12:59:02 07/31/2022 13:28:12 Lumbosacral radiculopathy 2856071 M54.17 Degenerati on of lumbar intervertebral disc 09252047 M51.36 32387 Partha Mike MD SV PAIN OFFICE [email or web address] [address] 10/23/2022 14:25:44 10/24/2022 09:29:06 Lumbosacral radiculitis 56715107 M54.17 Lumbosacra l radiculopathy 2687337 M54.17 Degenerati on of lumbar intervertebral disc 91966562 M51.36 66172 Partha Mike MD SV PAIN OFFICE [email or web address] [facility] [place] [address] 01/08/2023 14:34:27 01/08/2023 16:27:27 Lumbosacral radiculopathy 8031811 M54.17 Degenerati on of lumbar intervertebral disc 89028735 M51.36 03374 Partha Mike MD SV PAIN OFFICE [email or web address] [facility] [place] [address] 06/12/2023 14:08:28 06/12/2023 15:59:40 Spinal stenosis of lumbar region 99625211 M48.062 Lumbosacra l radiculopathy 4312456 M54.17 Degenerati on of lumbar intervertebral disc 87379282 M51.36 90225 Partha Mike MD SV PAIN OFFICE [email or web address] [facility] [place] [address] 11/05/2023 10:51:33 11/05/2023 12:02:11 Lumbosacral radiculitis 69103668 M54.17 Lumbosacra l radiculopathy 0509498 M54.17 Degenerati on of lumbar intervertebral disc 13702730 M51.36 Lumbar post-laminectomy syndrome 688138932 M96.1 83292 Partha Mike MD SV PAIN OFFICE [email or web address] [facility] [place] [address] 12/04/2023 12:58:53 12/04/2023 14:55:08 Spinal stenosis of lumbar region 63921110 M48.062 Lumbosacra l radiculopathy 9670693 M54.17 Degenerati on of lumbar intervertebral disc 45467963 M51.36 80019 Partha Mike MD SV PAIN OFFICE [email or web address] [facility] [place] [address] 03/05/2024 11:00:26 03/05/2024 13:23:09 Spinal stenosis of lumbar region 42089301 M48.062 Lumbosacra l radiculitis 49702358 M54.17 Lumbosacra l radiculopathy 2604066 M54.17 Degenerati on of lumbar intervertebral disc 44164387 M51.36 Lumbar post-laminectomy syndrome 239810267 M96.1 60404 Partha Mike MD PAIN OFFICE [email or web address] [address] 03/24/2024 11:06:25 03/24/2024 11:33:08 Spinal stenosis of lumbar region 43543467 M48.062 Lumbosacra l radiculopathy 7040888 M54.17 Degenerati on of lumbar intervertebral disc 05397272 M51.36 71438 Partha Mike MD SV PAIN OFFICE [address] [place] [address] 06/26/2024 10:56:44 06/26/2024 11:28:46 Spinal stenosis of lumbar region 08919030 M48.062 Lumbosacra l radiculitis 28354843 M54.17 Lumbosacra l radiculopathy 0110845 M54.17 Degenerati on of lumbar intervertebral disc 28829885 M51.362 Lumbar post-laminectomy syndrome 129694515 M96.1 92453 Partha Mike MD SV PAIN OFFICE [address] [place] [address] 07/15/2024 08:21:12 07/15/2024 11:16:14 Spinal stenosis of lumbar region 39316446 M48.062 Lumbosacra l radiculopathy 4282622 M54.17 Degenerati on of lumbar intervertebral disc 64256082 M51.362 51955 Partha Mike MD SV PAIN OFFICE [address] [place] [address] 10/16/2024 09:44:30 10/16/2024 11:21:12 Lumbosacral radiculitis 21380586 M54.17 Spinal deepika nosis of lumbar region 81848806 M48.062 Lumbosacra l radiculopathy 6461600 M54.17 Degenerati on of lumbar intervertebral disc 24442682 M51.362 Lumbar post-laminectomy syndrome 661745258 M96.1 94342 Partha Mike MD PAIN OFFICE [address] [facility] [place] [address] 12/01/2024 09:07:05 12/01/2024 16:42:50 Lumbosacral radiculitis 76935958 M54.17 Spinal deepika nosis of lumbar region 85479611 M48.062 Lumbosacra l radiculopathy 3086137 M54.17 Degenerati on of lumbar intervertebral disc 42375263 M51.362 Health Concerns Section Related Observation LastModified by Organization Detai ls LastModified Time None Recorded Concern Status LastModified by Organization Details LastModified Time None Recorded Advance Directives Directive None Recorded Payers Encounter Date Sequence Insurance Name Policy Number Policy Honeycutt Covered Member ID Honeycutt Member ID Guarantor Name 03/24/2024 1 [employer] (PPO) [id number] Cole Taylor [id number] Cole Taylor 06/26/2024 1 [employer] (PP[employer]) [id number] Cole Taylor [id number] Cole Taylor 07/15/2024 1 [employer] ([place]) [id number] Cole Taylor [id number] Cole Taylor 10/16/[address] [facility] (MEDICARE REPLACEMENT/A DVANTAGE - HMO) [id number] Cole Taylor [id number] Cole Taylor 12/01/[address] [facility] (MEDICARE REPLACEMENT/A DVANTAGE - HMO) [id number] Cole Taylor [id number] Cole Taylor Notes Date Note Type Note Provider Name and Address Organization Details Recorded Time 03/24/2024 text/html He is here for a repeat lumbar epidural steroid injection under fluoroscopic guidance. Partha Mike MD [address] , [address], [place], [address], [facility] 03/24/2024 11:36:06 06/26/2024 text/html Cole [...] has trialed physical therapy at the in [place] with some pain benefit. He has [...] the house . Partha Mike MD [address] , [address], [place], [address], [facility] - Pain Management 06/29/2024 14:20:49 07/15/2024 text/html He is here for a repeat lumbar epidural steroid injection under fluoroscopic guidance. Partha Mike MD [address] , [address], [place], [address], [facility] - Pain Management 07/15/2024 11:23:42 10/16/2024 text/html [...] [place] [place] with some pain benefit. He has [...] the house . Partha Mike MD [address] [facility] , [address], [place], [address], [facility] - Pain Management 10/19/2024 11:06:40 12/01/2024 text/html He is here for a repeat lumbar epidural steroid injection under fluoroscopic guidance. Partha Mike MD [address] [facility] , [address], [place], [address], [facility] - Pain Management 12/01/2024 16:50:50
== END 2024-12-22 09:45 | disposition home or self-care (01) ==
LOC: HO.HUSH 09:07
PROVIDERS: PCP Internal Medicine; Visit Provider Urology
DX: E29.1 Testicular hypofunction (principal)
CPT/HCPCS: 99214; G2211

== ENCOUNTER → 2024-12-22 09:04 | Outpatient (BNVA) | payer MEDICARE, SELFPAY | PROVIDERS: PCP Internal Medicine; Visit Provider Urology | DX: E29.1 Testicular hypofunction (principal) | CPT/HCPCS: 99212 ==

== ENCOUNTER 2025-03-05 08:16 | Outpatient (REF) | payer MEDICARE, SELFPAY ==
--- OUTSIDE RECORDS SUMMARY | 2025-03-05 08:22 | XMS_ITS | Clinical Summary ---
Author Organization [address] [facility] Address [address] [place] [address] Phone Care Team Providers Care Cable Respooler Name Role Phone Yojana Knight MILLY Primary Care Provider Allergies No known active allergies Medications carvediloL (COREG) 25 mg tablet Take 1 tablet (25 mg total) by mouth 2 (two) times a day. 5 Active famotidine (PEPCID) 20 mg tablet Take 1 tablet (20 mg total) by mouth at bedtime. 5 Active felodipine (PLENDIL) 10 mg 24 hr tablet Take 1 tablet (10 mg total) by mouth 1 (one) time each day. 5 Active gabapentin (NEURONTIN) 300 mg capsule 1 capsule (300 mg total). 5 Active Jardiance 25 mg tablet TAKE 1 TABLET BY MOUTH DAILY IN AM,X90 DAYS 5 Active meloxicam (MOBIC) 15 mg tablet 1 TABLET BY MOUTH DAILY,INSTR:FO R 5 TO 10 DAYS FOR ANY ACUTE EPISODE OF GOUT. 5 Active metFORMIN (GLUCOPHAGE) 500 mg tablet 1 TABLET BY MOUTH 3 TIMES A DAY,INSTR:WITH MEALS 5 Active pravastatin (PRAVACHOL) 40 mg tablet Take 1 tablet (40 mg total) by mouth 1 (one) time each day. 5 Active spironolactone (ALDACTONE) 25 mg tablet Take 1 tablet (25 mg total) by mouth 1 (one) time each day. 5 Active testosterone 20.25 mg/1.25 gram (1.62 %) gel in metered-dose pump APPLY 2 PUMPS OVER MAX AREA - ALTERNATE SHOULDERS ON ALTERNATE DAYS Active carbamide peroxide (DEBROX) 6.5 % otic solution 5 drops 2 (two) times a day. Active lidocaine (LIDODERM) 5 % patch Apply 1 patch topically 1 (one) time each day. Remove & discard patch within 12 hours or as directed by . Active Encounters Date Type Department Care Team Description 01/14/2025 Telephone Gastroenterology [facility] 175 [facility] [address] [phone] Jesika White NP 01/14/2025 Telephone Gastroenterology - [place] 175 [facility] [address] [id number] Irene Cavazos MD special procedure from Last 3 Months Social History Tobacco Use Types Packs/Day Years Used Date Smoking Tobacco: Never Assessed Sex and Gender Information Value Date Recorded Sex Assigned at Not on file Legal Sex Male 11:07 AM EDT Gender Identity Not on file Sexual Orientation Not on file Plan of Treatment Upcoming Encounters Date Type Department Care Team (Late st Contact Info) Description 04/22/2025 8:30 AM EDT Appointment [facility] [address] [place] [phone] Juan Sánchez MD [address] [address] Health Maintenance Due Date Last Done Comments DTaP,Tdap,and Td Vaccines (1 - Tdap) 1969 Pneumococcal Vaccine: 50+ Ye ars (1 of 1 - PCV) 11/04/1999 Zoster Vaccines (1 of 2) 11/04/1999 COVID-19 Vaccine ( - 2023-2 5 season) 2024 RSV Immunization Adult Patie nts (1 - 1-dose 75+ series) 2024 Cholesterol Screening (Lipid Panel) 01/15/2025 Colorectal Cancer Screening: Colonoscopy 01/15/2025 Falls Risk Assessment 01/15/2025 Hepatitis C Screening 01/15/2025 Social Influencers of Health Screening 01/15/2025 Influenza Vaccine (#1) 2025 Depression Screening 01/11/2026 01/11/2025 HIB Vaccines Aged Out No longer eligi ble based on patient's age to complete this topic HPV Vaccines Aged Out No longer eligi ble based on patient's age to complete this topic Hepatitis A Vaccines Aged Out No long er eligible based on patient's age to complete this topic Hepatitis B Vaccines Aged Out No long er eligible based on patient's age to complete this topic IPV Vaccines Aged Out No longer eligi ble based on patient's age to complete this topic MMR Vaccines Aged Out No longer eligi ble based on patient's age to complete this topic Meningococcal ACWY Vaccine Aged Out N o longer eligible based on patient's age to complete this topic Meningococcal B Vaccine Aged Out No l onger eligible based on patient's age to complete this topic RSV Immunization Patients Un [place] 20 months Aged Out No longer eligible b ased on patient's age to complete this topic Varicella Vaccines Aged Out No longer eligible based on patient's age to complete this topic [facility] [id number] Care Teams Cable Respooler Relationship Specialty Start Date End Date Yojana Knight FNP [address] [place] [address] PCP - General Family Medicine 01/14/25
--- OUTSIDE RECORDS SUMMARY | 2025-03-05 08:22 | XMS_ITS | Clinical Summary ---
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 Active JARDIANCE 25 mg tab TAKE 1 TABLET BY MOUTH DAILY IN AM,X90 DAYS Active famotidine (PEPCID) 20 mg tablet Take 20 mg by mouth nightly at bedtime. Active felodipine (PLENDIL) 10 mg 24 hr tablet Take 10 mg by mouth once daily. Active gabapentin (NEURONTIN) 300 mg capsule TAKE 3 CAPSULES 3 TIMES A DAY BY ORAL ROUTE FOR 90 DAYS. 5 Active metFORMIN (GLUCOPHAGE) 500 mg tablet 1 TABLET BY MOUTH 3 TIMES A DAY,INSTR:WIT H MEALS Active spironolactone (ALDACTONE) 25 mg tablet Take 25 mg by mouth once daily. Active carvediloL (COREG) 25 mg tablet Take 25 mg by mouth 2 (two) times daily. Active carbamide peroxide (DEBROX) 6.5 % otic solutionIndicat ions:Right ear impacted cerumen Place 10 Drops into both ears 2 (two) times daily. 15 mL 5 Active meloxicam (MOBIC) 15 mg tablet Take 1 Tablet by mouth once daily. 90 Tablet 5 Active lidocaine (LIDODERM) 5 % patchIndication s:Chronic bilateral low back pain with bilateral sciatica Place 1 Patch onto the skin daily Apply 1 patch to the affected area for a maximum of 12 hours, followed by removal for 12 hours.. 30 Patch 2 5 Active pravastatin (PRAVACHOL) 40 mg tablet Take 1 Tablet by mouth once daily. 90 Tablet 5 Active meloxicam (MOBIC) 15 mg tablet 1 TABLET BY MOUTH DAILY,INSTR:F OR 5 TO 10 DAYS FOR ANY ACUTE EPISODE OF GOUT. 02/05/20 Discontinu ed(Reorder (E-Cancel Not Sent)) pravastatin (PRAVACHOL) 40 mg tablet Take 40 mg by mouth once daily. 02/05/20 25 Discontinu ed(Reorder (E-Cancel Not Sent)) lidocaine (LIDODERM) 5 % patchIndication s:Chronic bilateral low back pain with bilateral sciatica Place 1 Patch onto the skin daily Apply 1 patch to the affected area for a maximum of 12 hours, followed by removal for 12 hours.. 30 Patch 2 5 02/05/20 25 Discontinu ed(Reorder (E-Cancel Not Sent)) Active Problems No known active problems Encounters Date Type Department Care Team Description 01/27/2025 2:20 PM EDT Office Visit [address] [phone] Shelby Lara RN 01/11/2025 1:00 PM EDT Office Visit [address] [address] Yojana Knight FNP from Last 3 Months Immunizations Immunization Administration Dates Next Due TDAP 01/11/2025 Family History Medical History Relation Name Comments Hypertension Brother x6 No Known Problems Daughter x3 No Known Problems Father tumor Mother No Known Problems Sister x3 Relation Name Status Comments Brother x6 Alive Daughter x3 Alive Father Mother Sister x3 Alive Social History Tobacco Use Types Packs/Day Years Used Date Smoking Tobacco: Never Smokeless Tobacco: Never Comments:Lest than a pack pe r day for 8 years Alcohol Use Standard Drinks/Week Comments Yes 0 (1 standard drink = 0.6 oz pur e alcohol) sometimes beer Sex and Gender Information Value Date Recorded Sex Assigned at Male 01/11/2025 9:09 PM PDT Legal Sex Male 10:40 AM PDT Gender Identity Male 01/11/2025 9:09 PM PDT Sexual Orientation Straight 01/11/2025 9: 09 PM PDT Last Filed Vital Signs Vital Sign Reading Time Taken Comments Blood Pressure 140/80 01/11/2025 1:23 PM EDT Pulse 86 01/11/2025 1:23 PM EDT Temperature 36.9 C (98.5 F) 01/11/2025 1:23 PM EDT Respiratory Rate 16 01/11/2025 1:23 PM EDT Oxygen Saturation 96% 01/11/2025 1:23 PM EDT Inhaled Oxygen Concentration - - Weight 128.6 kg (283 lb 9.6 oz) 01/11/2025 1:23 PM EDT Height 179 cm (5' 10.47 ) 01/11/2025 1:23 PM EDT Body Mass Index 40.15 01/11/2025 1:23 PM EDT Plan of Treatment Health Maintenance Due Date Last Done Comments CT Colonography 1994 Colonoscopy 1994 Colorectal Cancer Screening 1994 FIT/gFOBT 1994 Fecal DNA 1994 Flexible Sigmoidoscopy 1994 [id number] ( season) 2025 04/29/2024, 05/27/2023, 06/12/2022, Additional history exists Postponed from 10/27/2024 (Patient postponement) Imm-Influenza (#1) 2025 04/29/2024, 0 04/17/2023, 06/07/2022, Additional history exists Annual Wellness (Adult): Indicated (All Coverage) 01/11/2026 01/11/2025 Falls Prevention 01/11/2026 01/11/2025 Hypertension Screening (#1) 01/11/2026 Lipid Screening 01/11/2026 01/11/2025 Tobacco Screening 01/12/2026 01/12/2025 Imm-DTaP/Tdap/Td (3 - Td or Tdap) 01/11/2035 01/11/2025, 09/24/2011 Imm-Zoster, Recombinant Completed 04/17/20, 03/23/2022, 04/29/2013 Imm-RSV (adult) Completed 05/27/2023 Imm-Pneumococcal 50+ Completed 08/12/2024, 04/13/2015, 03/23/2014 Alcohol and Drug Screen Completed 01/11/2025 Depression Annual Screen Completed 01/11/2025 Hepatitis C Screening Completed 01/11/2025 Procedures Procedure Name Priority Date/Time Associated Diagnosis Comments HC REMOVAL IMPACTED CERUMEN INSTRUMENTATION UNILAT Routine 02/01/2025 4:28 PM EDT Right ear impacted cerumen REMOVAL IMPACTED CERUMEN INSTRUMENTATION UNILAT Routine 02/01/2025 4:28 PM EDT Right ear impacted cerumen RFLX - REFLEXIVE URINE CULTURE Routine 01/11/2025 2:38 PM EDT TESTOSTERONE, FREE AND TOTAL Routine 01/11/2025 2:38 PM EDT Routine general medical examination at a health care facility VITAMIN D, 1,25-DIHYDROXY Routine 01/11/2025 2:38 PM EDT Routine general medical examination at a health care facility VITAMIN B12 & FOLATE Routine 01/11/2025 2:38 PM EDT Routine general medical examination at a health care facility IRON, TIBC, FERRITIN PANEL Routine 01/11/2025 2:38 PM EDT Routine general medical examination at a health care facility URINALYSIS, COMPLETE W/REFLEX TO CULTURE Routine 01/11/2025 2:38 PM EDT Routine general medical examination at a health care facility PROSTATE SPECIFIC ANTIGEN, FREE AND TOTAL Routine 01/11/2025 2:38 PM EDT Routine general medical examination at a health care facility HEPATITIS C AB W/RFLX HCV RNA, QT, RT PCR Routine 01/11/2025 2:38 PM EDT Routine general medical examination at a health care facility BLOOD COUNT COMPLETE AUTO&AUTO DIFRNTL WBC Routine 01/11/2025 2:38 PM EDT Routine general medical examination at a [facility] care facility COMPREHENSIVE METABOLIC PANEL Routine 01/11/2025 2:38 PM EDT Routine general medical examination at a [facility] TSH W/RFLX FREE T4 Routine 01/11/2025 2: 38 PM EDT Routine general medical examination at a [facility] HEMOGLOBIN GLYCOSYLATED A1C Routine 01/11/2025 2:38 PM EDT Routine general medical examination at a [facility] LIPID PANEL Routine 01/11/2025 2:38 PM EDT Routine general medical examination at a [facility] REFERRAL TO OPHTHALMOLOGY Routine 01/11/2025 3:00 AM EDT Routine general medical examination at a [facility] care facility from Last 3 Months Results * REMOVAL IMPACTED CERUMEN INSTRUMENTATION UNILAT, HC REMOVAL IMPACTED CERUMEN INSTRUMENTATION UNILAT(02/01/2025 4:28 PM EDT) Shelby Tejada RN - 02/01/2025 4:28 PM EDT Shelby Lara RN 02/01/2025 4:29 PM Cerumen Removal Date/Time: 02/01/2025 4:28 PM Performed by: Shelby Lara RN Authorized by: Shelby Lara RN Consent given by: patient Anesthesia: Local Anesthetic: none Location details: right ear and left ear Procedure type: curette Sedation: Patient sedated: no Consent: Consent obtained: Verbal Consent given by: Patient Risks discussed: Dizziness, infection and pain Alternatives discussed: No treatment Shelby Lara [employer]AD [employer] M[employer]DER Final Result * HEPATITIS C AB W/RFLX HCV RNA, QT, RT PCR Routine (01/11/2025 2:38 PM EDT) Pathologist [facility] HEPATITIS C ANTIBODY NON-REACT CLAUDIO NON-REACT CLAUDIO [facility] Comment: HCV antibody was non-reactive. There is no laboratory evidence of HCV infection. In most cases, no further action is required. However, if recent HCV exposure is suspected, a test for HCV RNA (test code 80374) is suggested. For additional information please refer to http://education.[employer]/faq/BET96p1 (This link is being provided for informational/ educational purposes only.) Blood Blood / Unknown 01/11/2025 2 :38 PM EDT 01/11/2025 2:38 PM EDT [employer] Yojana Eugene [facility] - BLOOD DRAW Edited Resu lt - Final Performing Organization Address [facility] Co de Phone Number [employer] [address] [address], [employer] [address] [address] * (ABNORMAL) IRON, TIBC, FERRITIN PANEL Routine (01/11/2025 2:38 PM EDT) FERRITIN 45 24 - 380 ng/mL [facility] IRON, TOTAL 111 50 - 180 mcg/dL [facility] IRON BINDING CAPACITY 450(H) 250 - 425 mcg/dL (calc) [facility] % SATURATION 25 20 - 48 % (calc) [facility] Blood Blood / Unknown 01/11/2025 2 :38 PM EDT 01/11/2025 2:38 PM EDT Yojanagonzalez Knight [facility] - BLOOD DRAW Final Resul t Performing Organization Address [facility] Co de Phone Number [facility] [address] [address], [employer] [address] [address] * TSH W/RFLX FREE T4 Routine (01/11/2025 2:38 PM EDT) TSH W/REFLEX TO FT4 0.81 0.40 - 4.50 mIU/L [facility] Blood Blood / Unknown 01/11/2025 2 :38 PM EDT 01/11/2025 2:38 PM EDT Yojana Eugene [facility] - BLOOD DRAW Edited Resu lt - Final Performing Organization Address City/[facility]/ZIP Co de Phone Number [facility] [address] [address], [place] [facility] [address] [address] * (ABNORMAL) VITAMIN D, 1,25-DIHYDROXY Routine (01/11/2025 2:38 PM EDT) VITAMIN D, 1, 25 (OH)2, TOTAL 15(L) 18 - 72 pg/mL [employer] [facility] VITAMIN D3, 1, 25 (OH)2 15 pg/mL [facility] VITAMIN D2, 1, 25 (OH)2 <8 pg/mL [employer] [facility] Comment: Vitamin D3, 1,25(OH)2 indicates both endogenous production and supplementation. Vitamin D2, 1,25(OH)2 is an indicator of exogenous sources, such as diet or supplementation. Interpretation and therapy are based on measurement of Vitamin D,1,25(OH)2, Total. This test was developed and its analytical performance characteristics have been determined by [facility], [place], [place]. It has not been cleared or approved by the FDA. This assay has been validated pursuant to the CLIA regulations and is used for clinical purposes. Blood Blood / Unknown 01/11/2025 2 :38 PM EDT 01/11/2025 2:38 PM EDT Yojana Knight [facility] - BLOOD DRAW Final Resul t Performing Organization Address City/[facility]/ZIP Co de Phone Number [facility] [place] [address] [place], [place] , [facility]/[employer] [place] [address] [place], [place] * (ABNORMAL) URINALYSIS, COMPLETE W/REFLEX TO CULTURE Urine Routine (01/11/2025 2:38 PM EDT) COLOR DARK YELLOW YELLOW [facility] APPEARANCE CLEAR CLEAR [facility] SPECIFIC GRAVITY 1.036(H) 1.001 - 1.035 [facility] URINE PH < OR = 5.0(A) 5.0 - 8.0 [facility] GLUCOSE 3+(A) NEGATIVE [facility] BILIRUBIN NEGATIVE NEGATIVE [facility] KETONES NEGATIVE NEGATIVE [facility] OCCULT BLOOD NEGATIVE NEGATIVE [facility] URINE PROTEIN NEGATIVE NEGATIVE [facility] NITRITE NEGATIVE NEGATIVE [facility] LEUKOCYTE ESTERASE NEGATIVE NEGATIVE [facility] URINE LEUKOCYTES NONE SEEN < OR = 5 [facility] RBC NONE SEEN < OR = 2 [facility] SQUAMOUS EPITHELIAL CELLS NONE SEEN < OR = 5 [facility] BACTERIA NONE SEEN NONE SEEN [facility] HYALINE CAST NONE SEEN NONE SEEN [facility] SEE NOTE See Below [facility] Comment: This urine was analyzed for the presence of WBC, RBC, bacteria, casts, and other formed elements. Only those elements seen were reported. Urine Urine specimen / Unknown 01/11/2025 2:38 PM EDT 01/11/2025 2:38 PM EDT us Yojana DUNBARP LAB URINE AMBULATORY Edited Result - Final Performing Organization Address [facility] Co de Phone Number [facility] [address] [address], [employer] [address] [address] * RFLX - REFLEXIVE URINE CULTURE Routine (01/11/2025 2:38 PM EDT) REFLEXIVE URINE CULTURE See Below [employer] [facility] Comment:NO CULTURE INDICATED 01/11/2025 2:38 PM EDT 01/11/2025 2:38 PM EDT us Yojana DUNBARP LAB - MICROBIOLOGY AMBULATOR Y Edited Result - Final Performing Organization Address City/[facility] Co de Phone Number [facility] [address] [address], [place] [facility] [address] [address] * (ABNORMAL) TESTOSTERONE, FREE AND TOTAL Routine (01/11/2025 2:38 PM EDT) TESTOSTERONE, TOTAL, LC/MS/MS 190(L) 250 - 1,100 ng/dL [facility] Comment: Men with clinically significant hypogonadal symptoms and testosterone values repeatedly in the range of the 200-300 ng/dL or less, may benefit from testosterone treatment after adequate risk and benefits counseling. For additional information, please refer to http://education.[employer]/faq/ UpkvpUspebzicwcqtDUFEXFRYJ581 (This link is being provided for informational/ educational purposes only.) This test was developed and its analytical performance characteristics have been determined by [facility] [place], [place]. It has not been cleared or approved by the U.S. Food and Drug Administration. This assay has been validated pursuant to the CLIA regulations and is used for clinical purposes. FREE TESTOSTERONE 23.2(L) 30.0 - 135.0 pg/mL [facility] [place] Comment: This test was developed and its analytical performance characteristics have been determined by [facility] [place], [place]. It has not been cleared or approved by the U.S. Food and Drug Administration. This assay has been validated pursuant to the CLIA regulations and is used for clinical purposes. Blood Blood / Unknown 01/11/2025 2 :38 PM EDT 01/11/2025 2:38 PM EDT Yojana Knight [facility] - BLOOD DRAW Edited Resu lt - Final [facility] [address] [place], [place] , [facility] [facility] [address] [place], [place] * (ABNORMAL) PROSTATE SPECIFIC ANTIGEN, FREE AND TOTAL Routine (01/11/2025 2:38 PM EDT) TOTAL PSA 5.9(H) < OR = 4.0 ng/mL [facility] FREE PSA 1.2 ng/mL [facility] % FREE PSA 20(L) >25 % (calc) [facility] Comment: PSA(ng/mL) Free PSA(%) Estimated(x) Probability of Cancer(as%) 0-2.5 (*) Approx. 1 2.6-4.0(1) 0-27(2) 24(3) 4.1-10(4) 0-10 56 11-15 28 16-20 20 21-25 16 >or =26 8 >10(+) N/A >50 References:(1)Tarun et al.:Urology 60: 469-474 (2001) (2)Tarun et al.:J.Urol 168: 922-925 (2001) Free PSA(%) Sensitivity(%) Specificity(%) < or = 25 85 19 < or = 30 93 9 (3)Catalona et al.:SILVINO 277: 1374-3488 (1996) (4)Catalona et al.:SILVINO 279: 2337-3128 (1997) (x)These estimates vary with age, ethnicity, family history and DAVID results. (*)The diagnostic usefulness of % Free PSA has not been established in patients with total PSA below 2.6 ng/mL (+)In men with PSA above 10 ng/mL, prostate cancer risk is determined by total PSA alone. The Total PSA value from this assay system is standardized against the equimolar PSA standard. The test result will be approximately 20% higher when compared to the WHO-standardized Total PSA (Siemens assay). Comparison of serial PSA results should be interpreted with this fact in mind. PSA was performed using the Chucky Alejandro Immunoassay method. Values obtained from different assay methods cannot be used interchangeably. PSA levels, regardless of value, should not be interpreted as absolute evidence of the presence or absence of disease. Blood Blood / Unknown 01/11/2025 2 :38 PM EDT 01/11/2025 2:38 PM EDT Yojana Knight AC[facility] CARE SURGEON LAB - BLOOD DRAW Edited Resu lt - Final [employer] [facility] [address] [address], [facility] [address] [place] [address] * VITAMIN B12 & FOLATE Routine (01/11/2025 2:38 PM EDT) [facility] VITAMIN B12 388 200 - 1,100 pg/mL [facility] Comment: Please Note: Although the reference range for vitamin B12 is 200-1100 pg/mL, it has been reported that between 5 and 10% of patients with values between 200 and 400 pg/mL may experience neuropsychiatric and hematologic abnormalities due to occult B12 deficiency; less than 1% of patients with values above 400 pg/mL will have symptoms. FOLATE, SERUM 12.6 5.5 ng/mL [facility] Comment: Reference Range Low: <3.4 Borderline: 3.4-5.4 Normal: >5.4 Blood Blood / Unknown 01/11/2025 2 :38 PM EDT 01/11/2025 2:38 PM EDT Yojana Knight [facility] - BLOOD DRAW Edited Resu lt - Final [employer] [facility] [address] [address], [employer] [address] [address] * (ABNORMAL) BLOOD COUNT COMPLETE AUTO&AUTO DIFRNTL WBC Routine (01/11/2025 2:38 PM EDT) [facility] WHITE BLOOD CELL COUNT 5.3 3.8 - 10.8 Thousand/ uL [facility] RED BLOOD CELL COUNT 5.63 4.20 - 5.80 Million/u L [facility] HEMOGLOBIN 18.0(H) 13.2 - 17.1 g/dL [facility] HEMATOCRIT 52.8(H) 38.5 - 50.0 % [facility] MCV 93.8 80.0 - 100.0 fL [facility] MCH 32.0 27.0 - 33.0 pg [facility] MCHC 34.1 32.0 - 36.0 g/dL [facility] Comment: For adults, a slight decrease in the calculated MCHC value (in the range of 30 to 32 g/dL) is most likely not clinically significant; however, it should be interpreted with caution in correlation with other red cell parameters and the patient's clinical condition. RDW 13.4 11.0 - 15.0 % [facility] PLATELET COUNT 206 140 - 400 Thousand/ uL [facility] MPV 11.3 7.5 - 12.5 fL [facility] ABSOLUTE NEUTROPHILS 2,459 1,500 - 7,800 cells/uL [facility] ABSOLUTE LYMPHOCYTES 1,993 850 - 3,900 cells/uL [facility] ABSOLUTE MONOCYTES 726 200 - 950 cells/uL [facility] ABSOLUTE EOSINOPHILS 80 15 - 500 cells/uL [facility] ABSOLUTE BASOPHILS 42 0 - 200 cells/uL [facility] NEUTROPHILS PCT 46.4 % [employer] LYMPHOCYTES 37.6 % [facility] [employer] MONOCYTES 13.7 % [facility] [employer] EOSINOPHILS 1.5 % [facility] [employer] BASOPHILS 0.8 % [employer] DIAG [employer] Blood Blood / Unknown 01/11/2025 2 :38 PM EDT 01/11/2025 2:38 PM EDT Yojana Knight [facility] - BLOOD DRAW Edited Resu lt - Final [employer] [address] [place] [address], [facility] [address] [place] [phone] * (ABNORMAL) HEMOGLOBIN GLYCOSYLATED A1C Routine (01/11/2025 2:38 PM EDT) HEMOGLOBIN A1C 7.6(H) <5.7 % [facility] Comment: For someone without known diabetes, a hemoglobin A1c value of 6.5% or greater indicates that they may have diabetes and this should be confirmed with a follow-up test. For someone with known diabetes, a value <7% indicates that their diabetes is well controlled and a value greater than or equal to 7% indicates suboptimal control. A1c targets should be individualized based on duration of diabetes, age, comorbid conditions, and other considerations. Currently, no consensus exists regarding use of hemoglobin A1c for diagnosis of diabetes for children. Blood Blood / Unknown 01/11/2025 2 :38 PM EDT 01/11/2025 2:38 PM EDT Yojana Knight [facility] - BLOOD DRAW Edited Resu lt - Final Performing Organization Address [facility] Co de Phone Number [facility] [address] [address], [facility] [address] [address] * LIPID PANEL Routine (01/11/2025 2:38 PM EDT) [facility] Signature CHOLESTEROL, TOTAL 164 <200 mg/dL [facility] HDL CHOLESTEROL 59 > OR = 40 mg/dL [facility] TRIGLYCERIDES 135 <150 mg/dL [facility] LDL-CHOLESTEROL 82 99 mg/dL (calc) [facility] Comment: Reference range: <100 Desirable range <100 mg/dL for primary prevention; <70 mg/dL for patients with CHD or diabetic patients with > or = 2 CHD risk factors. LDL-C is now calculated using the Isael-Díaz calculation, which is a validated novel method providing better accuracy than the Friedewald equation in the estimation of LDL-C. Isael SS et al. SILVINO. 2013;310(19): 4239-9781 (http://education.[employer]IQ/faq/TOV174) CHOL/HDLC RATIO 2.8 <5.0 (calc) [facility] NON-HDL CHOLESTEROL 105 <130 mg/dL (calc) [facility] Comment: For patients with diabetes plus 1 major ASCVD risk factor, treating to a non-HDL-C goal of <100 mg/dL (LDL-C of <70 mg/dL) is considered a therapeutic option. Blood Blood / Unknown 01/11/2025 2 :38 PM EDT 01/11/2025 2:38 PM EDT Yojana Knight [facility] - BLOOD DRAW Final Resul t Performing Organization Address [facility] de Phone Number [facility] [address] [address], [facility] [address] [place] [address] * (ABNORMAL) COMPREHENSIVE METABOLIC PANEL Routine (01/11/2025 2:38 PM EDT) GLUCOSE 149(H) 65 - 99 mg/dL [facility] Comment: Fasting reference interval For someone without known diabetes, a glucose value >125 mg/dL indicates that they may have diabetes and this should be confirmed with a follow-up test. UREA NITROGEN (BUN) 16 7 - 25 mg/dL [facility] CREATININE (blood) 1.38(H) 0.70 - 1.28 mg/dL [facility] EGFR 53(L) > OR = 60 mL/min/1. 73m2 [facility] BUN/CREATININE RATIO 12 6 - 22 (calc) [facility] SODIUM 144 135 - 146 mmol/L [facility] POTASSIUM 4.6 3.5 - 5.3 mmol/L [facility] CHLORIDE 106 98 - 110 mmol/L [facility] CARBON DIOXIDE 29 20 - 32 mmol/L [facility] CALCIUM 10.8(H) 8.6 - 10.3 mg/dL [facility] PROTEIN, TOTAL 7.4 6.1 - 8.1 g/dL [facility] ALBUMIN 5.0 3.6 - 5.1 g/dL [facility] GLOBULIN 2.4 1.9 - 3.7 g/dL (calc) [facility] ALBUMIN/GLOBULI N RATIO 2.1 1.0 - 2.5 (calc) [facility] BILIRUBIN, TOTAL 0.7 0.2 - 1.2 mg/dL [facility] ALKALINE PHOSPHATASE 48 35 - 144 U/L [facility] AST 21 10 - 35 U/L [facility] ALT 38 9 - 46 U/L [facility] Blood Blood / Unknown 01/11/2025 2 :38 PM EDT 01/11/2025 2:38 PM EDT Yojana Knight ACUTE CARE SURGEON LAB - BLOOD DRAW Edited Resu lt - Final [facility] [address] [address], [facility] [address] [id number] * REFERRAL TO OPTHALMOLOGY (01/11/2025 3:00 AM EDT) 01/11/2025 3:00 AM EDT Yojana ATKINS REFERRAL Final Result from Last 3 Months Insurance [facility] Care Teams [employer] Relationship Specialty Start Date End Date Yojana Knight FNP [address] [place] [id number] PCP - General Family Medicine, [employer] 01/21/25
--- OUTSIDE RECORDS SUMMARY | 2025-03-05 08:23 | XMS_ITS | Data Portability ---
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 [email or web address] Not available 06/26/2024 11:25:01 07/15/2024 07/15/2024 Cole [...] his PCP. [email or web address] Not available 07/15/2024 08:57:12 10/16/2024 10/16/2024 Cole Tayolr is a 73 year old man with [...] his PCP. [email or web address] Not available 10/16/2024 10:30:15 12/01/2024 12/01/2024 Cole [...] By Organization Details Last Modified Time 03/24/2024 [id number] He was advised against bed rest lasting longer than four days and to continue activities as tolerated. [email or web address] Not available 03/24/2024 11:30:26 06/26/2024 [id number] He was advised against bed rest lasting longer than four days and to continue activities as tolerated. [email or web address] Not available 06/26/2024 11:25:03 07/15/2024 [id number] He was advised against bed rest lasting longer than four days and to continue activities as tolerated. [email or web address] Not available 07/15/2024 08:57:20 10/16/2024 [id number] He was advised against bed rest lasting longer than four days and to continue activities as tolerated. [email or web address] Not available 10/16/2024 10:30:19 12/01/2024 [id number] He was advised against bed rest lasting longer than four days and to continue activities as tolerated. [email or web address] Not available 12/01/2024 09:40:09 Reason for Referral None Reported. Problems Name Problem SNOMED Code Status Onset Date Resolution Date Notes Provider Name and Address Organization Details Recorded Time Spondylosis without myelopathy [id number] Justin schmidt MD [address] , [address], [place], [address], [place] [facility] 13:41:20 Muscle pain 83655567 Justin schmidt MD [address] , [address], [place], [address], [place] [facility] 6 13:41:20 Spinal stenosis of lumbar region 25294561 Justin schmidt MD [address] , [address], [place], [address], [place] [facility] 6 13:41:20 Lumbosacral radiculitis 75250625 Active Partha schmidt MD [address] , [address], [place], [address], [place] [facility] 6 13:41:20 Pseudoclaud ication syndrome Completed 06/24/2013 Partha schmidt MD [address] , [address], [place], [address], [place] [facility] 6 13:37:56 Diabetes mellitus 48918258 Justin schmidt MD [address] , [address], [place], [address], [place] [facility] 6 13:41:20 Shoulder joint pain 992136671 Justin schmidt MD [address] , [address], [place], [address], [place] [facility] 6 13:41:20 Degeneratio n of interverteb ral disc 54325503 Active Partha schmidt MD [address] , [address], [place], [address], [place] [facility] 13:41:20 Problem Notes None recorded. Procedures Surgical History Date Name Laterality Status Provider Name and Address Organization Details Recorded Time 12/02/19 25 Lumbar Epidural steroid injection under fluoroscopic guidance completed Partha Mike MD [address] , [address], [place], [address], [place] [facility] 12/01/2024 09:40:48 07/15/20 24 Lumbar Epidural steroid injection under fluoroscopic guidance completed Partha Mike MD [address] , [address], [place], [address], [place] [facility] 07/15/2024 08:57:51 03/24/20 24 Lumbar Epidural steroid injection under fluoroscopic guidance completed Partha Mike MD [address] , [address], [place], [address], [place] [facility] 03/24/2024 11:30:56 12/04/19 24 Lumbar Epidural steroid injection under fluoroscopic guidance completed Partha Mike MD [address] , [address], [place], [address], [place] [facility] 12/04/2023 13:40:41 06/12/20 23 Lumbar Epidural steroid injection under fluoroscopic guidance completed Partha Mike MD [address] , [address], [place], [address], [place] [facility] 06/12/2023 15:01:20 01/09/20 23 Lumbar Epidural steroid injection under fluoroscopic guidance completed Partha Mike MD [address] , [address], [place], [address], [place] [facility] 01/08/2023 15:00:42 10/23/19 23 Lumbar Epidural steroid injection under fluoroscopic guidance completed Partha Mike MD [address] , [address], [place], [address], [place] [facility] 10/23/2022 15:03:01 07/31/20 22 Lumbar Epidural steroid injection under fluoroscopic guidance completed Partha Mike MD [address] , [address], [place], [address], [place] [facility] 07/31/2022 13:25:34 04/25/20 22 Lumbar Epidural steroid injection under fluoroscopic guidance completed Partha Mike MD [address] , [address], [place], [address], [place] [facility] 04/25/2022 10:35:19 01/03/20 22 Lumbar Epidural steroid injection under fluoroscopic guidance completed Partha Mike MD [address] , [address], [place], [address], [place] [facility] 01/02/2022 16:29:21 10/04/19 22 Sacroiliac Joint Steroid Injections, using Fluoroscopy completed Partha Mike MD [address] , [address], [place], [address], [place] [facility] 10/04/2021 10:59:56 07/25/20 21 Lumbar Epidural steroid injection under fluoroscopic guidance completed Partha Mike MD [address] , [address], [place], [address], [place] [facility] 07/25/2021 10:59:40 04/18/20 21 Lumbar Epidural steroid injection under fluoroscopic guidance completed Partha Mike MD [address] , [address], [place], [address], [place] [facility] 04/18/2021 10:57:10 01/04/20 21 Lumbar Epidural steroid injection under fluoroscopic guidance completed Partha Mike MD [address] , [address], [place], [address], [place] [facility] 01/03/2021 15:21:58 10/04/19 21 Lumbar Epidural steroid injection under fluoroscopic guidance completed Partha Mike MD [address] , [address], [place], [address], [place] [facility] 10/05/2020 14:16:42 07/12/20 20 Lumbar Epidural steroid injection under fluoroscopic guidance completed Partha Mike MD [address] , [address], [place], [address], [place] [facility] 07/12/2020 15:12:10 04/19/20 20 Lumbar Epidural steroid injection under fluoroscopic guidance completed Partha Mike MD [address] , [address], [place], [address], [place] [facility] 04/19/2020 11:32:47 01/12/20 20 Lumbar Epidural steroid injection under fluoroscopic guidance completed Partha Mike MD [address] , [address], [place], [address], [place] [facility] 01/14/2020 09:58:10 09/01/19 20 Lumbar Epidural steroid injection under fluoroscopic guidance completed Partha Mike MD [address] , [address], [place], [address], [place] [facility] 09/08/2019 09:56:16 06/03/20 19 Lumbar Epidural steroid injection under fluoroscopic guidance completed Partha Mike MD [address] , [address], [place], [address], [place] [facility] 06/05/2019 15:43:58 03/10/20 19 Lumbar Epidural steroid injection under fluoroscopic guidance completed Partha Mike MD [address] , [address], [place], [address], [place] [facility] 03/11/2019 13:37:47 12/10/19 19 Lumbar Epidural steroid injection under fluoroscopic guidance completed Partha Mike MD [address] , [address], [place], [address], [place] [facility] 12/10/2018 10:47:26 05/28/20 18 Lumbar Epidural steroid injection under fluoroscopic guidance completed Partha Mike MD [address] , [address], [place], [address], [place] [facility] 05/28/2018 14:21:58 01/09/20 18 Lumbar Epidural steroid injection under fluoroscopic guidance completed Partha Mike MD [address] , [address], [place], [address], [place] [facility] 01/09/2018 14:13:45 06/11/20 17 Radiofrequency of Lumbar/Sacral medial branches supplying the facets under fluoroscopic guidance completed Partha Mike MD [address] , [address], [place], [address], [place] [facility] 06/14/2017 14:37:54 04/23/20 17 Fluoroscopic Guided Lumbar Facet Steroid Injections of levels completed Partha Mike MD [address] , [address], [place], [address], [place] [facility] 04/24/2017 10:38:56 02/20/20 17 Fluoroscopic Guided Lumbar Facet Steroid Injections of levels completed Partha Mike MD [address] , [address], [place], [address], [place] [facility] 02/19/2017 15:04:05 11/09/19 17 Fluoroscopic Guided Lumbar Facet Steroid Injections of levels completed Partha Mike MD [address] , [address], [place], [address], [place] [facility] 11/08/2016 11:54:16 07/04/20 16 Lumbar Epidural steroid injection under fluoroscopic guidance completed Partha Mike MD [address] , [address], [place], [address], [place] [facility] 07/09/2016 14:02:15 05/22/20 16 Radiofrequency of Lumbar/Sacral medial branches supplying the facets under fluoroscopic guidance completed Partha Mike MD [address] , [address], [place], [address], [place] [facility] 05/31/2016 12:13:20 04/03/20 16 Fluoroscopic Guided Lumbar Facet Steroid Injections of levels completed Partha Mike MD [address] , [address], [place], [address], [place] [facility] 04/03/2016 13:41:21 03/06/20 16 Fluoroscopic Guided Lumbar Facet Steroid Injections of levels completed Partha Mike MD [address] , [address], [place], [address], [place] [facility] 03/08/2016 13:50:00 11/10/19 16 Trigger Point Injections under ultrasound guidance completed Partha Mike MD [address] , [address], [place], [address], [place] [facility] 11/10/2015 14:02:24 10/26/19 16 Fluoroscopic Guided Lumbar Facet Steroid Injections of levels completed Partha Mike MD [address] , [address], [place], [address], [place] [facility] 10/26/2015 09:40:25 09/28/19 16 Fluoroscopic Guided Lumbar Facet Steroid Injections of levels completed Partha Mike MD [address] , [address], [place], [address], [place] [facility] 09/28/2015 13:48:43 03/14/20 15 Lumbar Epidural steroid injection under fluoroscopic guidance completed Partha Mike MD [address] , [address], [place], [address], [place] [facility] 03/14/2015 14:26:28 11/23/19 15 Lumbar Epidural steroid injection under fluoroscopic guidance completed Partha Mike MD [address] , [address], [place], [address], [place] [facility] 11/23/2014 14:50:01 06/14/20 14 Lumbar Epidural steroid injection under fluoroscopic guidance completed Partha Mike MD [address] , [address], [place], [address], [place] [facility] 06/14/2014 11:20:52 03/01/20 14 Lumbar Epidural steroid injection under fluoroscopic guidance completed Partha Mike MD [address] , [address], [place], [address], [place] [facility] 03/02/2014 14:36:10 12/09/19 14 Intra-articular shoulder steroid injection under ultrasound guidance completed Partha Mike MD [address] , [address], [place], [address], [place] [facility] 12/08/2013 18:00:06 09/21/19 14 Lumbar Epidural steroid injection under fluoroscopic guidance completed Partha Mike MD [address] , [address], [place], [address], [place] [facility] 09/22/2013 08:45:16 06/23/20 13 Lumbar Epidural steroid injection under fluoroscopic guidance completed Partha Mike MD [address] , [address], [place], [address], [place] [facility] 06/24/2013 09:47:40 02/03/20 13 Lumbar Epidural steroid injection under fluoroscopic guidance completed Partha Mike MD [address] [facility] , [address], [place], [address], [place] [facility] 02/03/2013 15:20:43 11/11/19 13 Lumbar Epidural steroid injection under fluoroscopic guidance completed Partha Mike MD [address] [facility] , [address], [place], [address], [place] [facility] 11/10/2012 13:43:13 08/11/20 12 Lumbar Epidural steroid injection under fluoroscopic guidance completed Partha Mike MD [address] [facility] , [address], [place], [address], [place] [facility] 08/12/2012 09:13:07 11/26/19 12 Lumbar Epidural steroid injection under fluoroscopic guidance completed Partha Mike MD [address] , [address], [place], [address], [place] [facility] 11/27/2011 10:25:45 10/16/19 12 Lumbar Epidural steroid injection under fluoroscopic guidance completed Partha Mike MD [address] , [address], [place], [address], [place] [facility] 10/17/2011 09:56:36 Back Surgery completed Amaris Johnson [facility] 12/01/2013 09:38:49 Other completed Amaris Johnson [facility] 11/22/2014 12:00:10 Other completed Amaris Johnson [facility] 10/04/2011 09:30:27 Other completed Amaris Johnson [facility] 10/04/2011 09:30:27 Tonsillectomy completed Amaris Johnson [facility] 10/04/2011 09:30:27 Appendectomy completed Amaris Johnson [facility] 11/05/2018 11:04:20 Imaging Results None [...] ORDERS IN THE SYSTEM. PLEASE GOTO ANY [facility] active Not Available Not Available [...] Not Available Not Available Not Available Fluvirin 2982-7865 45 mcg (15 mcg x 3)/0.5 mL [...] Not Available No t Available Fluzone High-Dose 3433-7988 (PF) 180 mcg/0.5 mL intramuscu lar syringe [...] Body mass index (BMI) Body weight Systolic And Diastolic Provider Name and Address Organization Details Last Updated DateTime 5 175.26 cm 80 /min 97 % 97 % 40.3 kg/m2 281789. 72 g 136/85 mm[Hg] Partha schmidt MD [address] , [address], [place], [address], [place] [facility] 5 09:46:02 Date Recorded Body height Heart rate Oxygen saturation Oxygen saturation in Arterial blood by Pulse oximetry Systolic And Diastolic Provider Name and Address Organization Details Last Updated DateTime 5 175.26 cm 76 /min 99 % 99 % 154/78 mm[Hg] Griselda Putprimo [facility] 5 09:14:36 Date Recorded Body height Heart rate Oxygen saturation Oxygen saturation in Arterial blood by Pulse oximetry Systolic And Diastolic Provider Name and Address Organization Details Last Updated DateTime 4 175.26 cm 78 /min 97 % 97 % 144/72 mm[Hg] Griselda Putprimo [facility] 4 11:07:36 Date Recorded Body height Heart rate Oxygen saturation Oxygen saturation in Arterial blood by Pulse oximetry Body mass index (BMI) Body weight Systolic And Diastolic Provider Name and Address Organization Details Last Updated DateTime 4 175.26 cm 80 /min 97 % 97 % 41.3 kg/m2 822247. 86 g 166/84 mm[Hg] Partha schmidt MD [address] , [address], [place], [address], [place] [facility] 4 11:12:56 Date Recorded Body height Heart rate Oxygen saturation Oxygen saturation in Arterial blood by Pulse oximetry Systolic And Diastolic Provider Name and Address Organization Details Last Updated DateTime 4 175.26 cm 71 /min 97 % 97 % 121/63 mm[Hg] Khadra Ganwong [facility] 4 08:35:52 Social History Question Answer Notes LastModified by Organizat ion Details LastModified Time Tobacco Smoking Status Former Smoker Quit > 20 years Not Available [employer] 06/10/2020 03:16:11 Which Illicit Or Recreational Drugs Have You Used? No [id number] Information not available 06/10/2020 Education 10 Vocational Training Information not available 10/04/2011 Live Alone Or With Others? With Others Information not available 10/04/2011 Marital Status [facility] [facility] not available 10/04/2011 What Was The Date Of Your Most Recent Tobacco Screening? 03/11/2019 [id number] Information not available 06/10/2020 Sex: Unknown Functional Status Question Answer Note LastModified by Organizat ion Details LastModified Time What is your level of alcohol consumption? Occasional [id number] Information not available 06/10/2020 Are you currently employed? 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 Family History Relationship [...] Code Diagnosis ICD10 Code Diagnosis Note 8481 Partha Mike MD PAIN OFFICE [address] [facility] [place] [address] 10/04/2011 08:43:25 10/04/2011 15:11:17 9182 Partha Mike MD [facility] [address] [place] [address] 10/16/2011 13:03:10 10/16/2011 15:55:21 36800 Partha Mike MD [facility] [address] [place] [address] 11/14/2011 08:53:08 11/14/2011 16:02:29 94797 Partha Mike MD PAIN OFFICE [address] [place] [address] 11/26/2011 13:47:13 11/27/2011 09:25:30 12498 Partha Mike MD PAIN OFFICE [address] [place] [address] 01/10/2012 12:59:24 01/10/2012 15:51:49 06906 Partha Mike MD PAIN OFFICE [address] [place] [address] 07/29/2012 09:56:41 07/29/2012 15:35:09 99047 Partha Mike MD [facility] [address] [place] [address] 08/11/2012 13:15:02 08/11/2012 15:26:03 98243 Partha Mike MD PAIN OFFICE [address] [place] [address] 09/23/2012 13:36:52 09/23/2012 15:52:57 68654 Partha Mike MD [facility] [address] [place] [address] 11/10/2012 10:02:01 11/10/2012 15:08:49 08918 Partha Mike MD PAIN OFFICE [address] [place] [address] 01/15/2013 09:03:50 01/15/2013 09:44:06 53725 Partha Mike MD PAIN OFFICE [address] [place] [address] 02/02/2013 12:53:42 02/02/2013 15:44:04 98547 Partha Mike MD PAIN OFFICE [address] [place] [address] 03/31/2013 09:50:54 03/31/2013 15:57:47 73460 Partha Mike MD PAIN OFFICE [address] [place] [address] 06/23/2013 13:47:03 06/23/2013 15:44:00 Diabetes mellitus 68506638 Spinal deepika nosis of lumbar region 07009461 Lumbosacra l radiculitis 74646148 84449 Partha Mike MD PAIN OFFICE [address] [place] [address] 09/21/2013 09:40:53 09/21/2013 16:06:00 Spinal stenosis of lumbar region 43539229 Diabetes mellitus 48598743 Lumbosacra l radiculitis 22518325 08274 Partha Mike MD PAIN OFFICE [address] [place] [address] 11/10/2013 09:59:56 11/13/2013 09:32:38 Diabetes mellitus 13370959 Lumbosacra l radiculitis 22472621 Spinal deepika nosis of lumbar region 31329199 Pseudoclau dication syndrome 29611144 19749 Partha Mike MD PAIN OFFICE [address] [place] [address] 12/08/2013 14:43:41 12/08/2013 18:01:06 Spinal stenosis of lumbar region 74902946 Diabetes mellitus 75001939 Lumbosacra l radiculitis 55296380 Shoulder joint pain 739265704 21829 Partha Mike MD PAIN OFFICE [address] [place] [address] 12/16/2013 10:48:12 12/16/2013 14:53:27 Shoulder joint pain 888546719 Degenerati on of intervertebral disc 41880867 Spinal deepika nosis of lumbar region 22580272 Diabetes mellitus 85423774 Lumbosacra l radiculitis 93709426 53222 Partha Mike MD [facility] [address] [place] [address] 02/02/2014 09:34:56 02/02/2014 10:18:41 Spinal stenosis of lumbar region 46985557 Degenerati on of intervertebral disc 21879159 Lumbosacra l radiculitis 17705564 Pseudoclau dication syndrome 39916000 16377 Partha Mike MD [facility] [address] [place] [address] 03/01/2014 11:09:53 03/02/2014 14:37:45 Spinal stenosis of lumbar region 92100500 Degenerati on of intervertebral disc 47563077 Diabetes mellitus 37781338 Lumbosacra l radiculitis 46908807 Shoulder joint pain 425904711 30089 Partha Mike MD PAIN OFFICE [address] [place] [address] 05/26/2014 09:28:16 05/26/2014 10:59:20 Spinal stenosis of lumbar region 68026819 Degenerati on of intervertebral disc 44079455 Diabetes mellitus 72413204 Lumbosacra l radiculitis 37210947 Shoulder joint pain 933837117 24722 Partha Mike MD [facility] [address] [place] [address] 06/14/2014 10:27:48 06/14/2014 11:25:21 Spinal stenosis of lumbar region 29225169 Degenerati on of intervertebral disc 31773747 Diabetes mellitus 81614320 Lumbosacra l radiculitis 31372645 Shoulder joint pain 816102031 49945 Partha Mike MD PAIN OFFICE [address] [place] [address] 07/01/2014 13:08:47 07/02/2014 11:31:47 Spinal stenosis of lumbar region 28104160 Degenerati on of intervertebral disc 68282251 Diabetes mellitus 71577833 Lumbosacra l radiculitis 51062588 84609 Partha Mike MD PAIN OFFICE [address] [facility] [place] [address] 07/15/2014 14:20:26 07/18/2014 10:47:48 Spinal stenosis of lumbar region 88738884 Degenerati on of intervertebral disc 00273534 Diabetes mellitus 39338542 Lumbosacra l radiculitis 53604428 Shoulder joint pain 302295770 80526 Partha Mike MD PAIN OFFICE [address] [facility] [place] [address] 11/22/2014 11:25:34 11/23/2014 14:51:48 Spinal stenosis of lumbar region 73635452 Degenerati on of intervertebral disc 33181202 Diabetes mellitus 72329492 Lumbosacra l radiculitis 65841379 Shoulder joint pain 704401683 10928 Partha Mike MD PAIN OFFICE [address] [facility] [place] [address] 02/23/2015 11:44:55 02/28/2015 11:49:49 Spinal stenosis of lumbar region 99034625 Degenerati on of intervertebral disc 53629709 Diabetes mellitus 67792688 Lumbosacra l radiculitis 67255365 Shoulder joint pain 970859757 23897 Partha Mike MD PAIN OFFICE [address] [place] [address] 03/14/2015 09:26:00 03/14/2015 14:28:25 Spinal stenosis of lumbar region 34387190 Degenerati on of intervertebral disc 20045980 Diabetes mellitus 97403721 Lumbosacra l radiculitis 97939387 Shoulder joint pain 470596305 78590 Partha Mike MD [facility] [address] [facility] [place] [address] 09/21/2015 08:46:34 09/21/2015 10:05:28 Spinal stenosis of lumbar region 63781178 M48.06 Degenerati on of intervertebral disc 63917761 M51.9 Diabetes mellitus 400326 09 E11.9 Lumbosacra l radiculitis 40891688 M54.17 Shoulder joint pain 2679 46357 M25.519 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 21296768 M47.816 76364 Partha Mike MD PAIN OFFICE [address] [place] [address] 09/28/2015 10:28:09 09/28/2015 13:50:48 Spinal stenosis of lumbar region 57431470 M48.06 Degenerati on of intervertebral disc 48747340 M51.17 M51.9 Diabetes mellitus 844758 09 E11.9 Lumbosacra l radiculitis 07015840 M54.17 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 96018727 M47.816 Shoulder joint pain 2679 98283 M25.511 M25.519 58169 Partha Mike MD PAIN OFFICE [address] [place] [address] 10/25/2015 11:19:24 10/26/2015 08:58:26 Spinal stenosis of lumbar region 97168221 M48.06 Degenerati on of intervertebral disc 53446041 M51.17 M51.9 Diabetes mellitus 556532 09 E11.9 Lumbosacra l radiculitis 82909617 M54.17 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 01169333 M47.816 Shoulder joint pain 2679 05271 M25.511 M25.519 11735 Partha Mike MD PAIN OFFICE [address] [place] [address] 10/26/2015 08:59:15 10/26/2015 11:09:06 Spondylosis without myelopathy 22795433 M47.816 Spinal deepika nosis of lumbar region 60094085 M48.06 Degenerati on of intervertebral disc 85912087 M51.17 M51.9 Diabetes mellitus 288883 09 E11.9 Lumbosacra l radiculitis 29809693 M54.17 Shoulder joint pain 2679 67012 M25.519 77450 Partha Mike MD PAIN OFFICE [address] [place] [address] 11/04/2015 09:01:41 11/04/2015 10:57:41 Spondylosis without myelopathy 10436255 M47.816 Spinal deepika nosis of lumbar region 21618457 M48.06 Degenerati on of intervertebral disc 40909901 M51.17 M51.9 Diabetes mellitus 997562 09 E11.9 Lumbosacra l radiculitis 89230759 M54.17 Shoulder joint pain 2679 38878 M25.511 Muscle pain 22035143 M79 .1 55982 Partha Mike MD PAIN OFFICE [address] [facility] [place] [address] 11/10/2015 09:34:55 11/10/2015 14:03:07 Muscle pain 32617795 M79.1 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 19073585 M47.816 Degenerati on of intervertebral disc 64571028 M51.17 M51.9 Spinal deepika nosis of lumbar region 92911749 M48.06 Diabetes mellitus 234605 09 E11.9 Lumbosacra l radiculitis 39080870 M54.17 Shoulder joint pain 2679 53934 M25.511 77842 Partha Mike MD PAIN OFFICE [address] [facility] [place] [address] 11/30/2015 13:31:23 11/30/2015 14:19:05 Muscle pain 69333220 M79.1 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 43888841 M47.816 Spinal deepika nosis of lumbar region 75533082 M48.06 Lumbosacra l radiculitis 93478052 M54.17 Degenerati on of intervertebral disc 93403604 M51.17 M51.9 Diabetes mellitus 637608 09 E11.9 Shoulder joint pain 2679 59727 M25.511 38910 Partha Mike MD PAIN OFFICE [address] [facility] [place] [address] 02/10/2016 09:04:14 02/10/2016 10:56:58 Spinal stenosis of lumbar region 42196971 M48.06 Degenerati on of intervertebral disc 08830883 M51.17 M51.9 Muscle pain 11750248 M79 .1 Diabetes mellitus 677295 09 E11.9 Lumbosacra l radiculitis 95694829 M54.17 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 96239183 M47.816 Shoulder joint pain 2679 91165 M25.511 M25.519 13750 Partha Mike MD PAIN OFFICE [address] [place] [address] 03/02/2016 08:42:55 03/04/2016 08:55:28 Spinal stenosis of lumbar region 21434594 M48.06 Degenerati on of intervertebral disc 75707883 M51.17 M51.9 Muscle pain 18330533 M79 .1 Diabetes mellitus 999361 09 E11.9 Lumbosacra l radiculitis 19642992 M54.17 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 75668949 M47.816 Shoulder joint pain 2679 11110 M25.511 M25.519 22215 Partha Mike MD PAIN OFFICE [address] [place] [address] 03/06/2016 14:22:25 03/08/2016 13:51:55 Spondylosis without myelopathy 46192943 M47.816 Spinal deepika nosis of lumbar region 70192869 M48.06 Degenerati on of intervertebral disc 91006080 M51.17 M51.9 Muscle pain 25306383 M79 .1 Diabetes mellitus 816509 09 E11.9 Lumbosacra l radiculitis 24974151 M54.17 Shoulder joint pain 2679 31445 M25.511 M25.519 33778 Partha Mike MD PAIN OFFICE [address] [place] [address] 04/03/2016 09:43:41 04/03/2016 13:44:34 Spondylosis without myelopathy 17296624 M47.816 Degenerati on of intervertebral disc 03453468 M51.17 M51.9 Spinal deepika nosis of lumbar region 63786315 M48.06 Muscle pain 69317319 M79 .1 Diabetes mellitus 783215 09 E11.9 Lumbosacra l radiculitis 16693388 M54.17 Shoulder joint pain 2679 10031 M25.511 M25.519 97708 Partha Mike MD PAIN OFFICE [address] [place] [address] 05/04/2016 11:06:28 05/04/2016 15:53:59 Spondylosis without myelopathy 31629727 M47.816 Spinal deepika nosis of lumbar region 03258460 M48.06 Degenerati on of intervertebral disc 55330220 M51.17 M51.9 Muscle pain 11443638 M79 .1 Diabetes mellitus 307155 09 E11.9 Lumbosacra l radiculitis 17260016 M54.17 Shoulder joint pain 2679 47680 M25.511 M25.519 07028 Partha Mike MD PAIN OFFICE [address] [place] [address] 05/22/2016 14:45:55 05/31/2016 13:21:25 Spondylosis without myelopathy 15493258 M47.816 Spinal deepika nosis of lumbar region 48370615 M48.06 Degenerati on of intervertebral disc 52307267 M51.17 M51.9 Muscle pain 14749261 M79 .1 Diabetes mellitus 185199 09 E11.9 Lumbosacra l radiculitis 56362264 M54.17 Shoulder joint pain 2679 62575 M25.511 M25.519 24514 Partha Mike MD PAIN OFFICE [address] [place] [address] 06/18/2016 13:20:37 06/18/2016 20:15:12 Spinal stenosis of lumbar region 14481629 M48.06 Degenerati on of intervertebral disc 88803583 M51.17 M51.9 Diabetes mellitus 543923 09 E11.9 Lumbosacra l radiculitis 89315388 M54.17 Shoulder joint pain 2679 93325 M25.511 M25.519 94968 Partha Mike MD PAIN OFFICE [address] [place] [address] 07/04/2016 10:32:34 07/08/2016 10:58:02 Spinal stenosis of lumbar region 34985710 M48.06 Degenerati on of intervertebral disc 67727090 M51.17 M51.9 Diabetes mellitus 020575 09 E11.9 Lumbosacra l radiculitis 78872324 M54.17 Shoulder joint pain 2679 26582 M25.511 M25.519 41863 Partha Mike MD SV PAIN OFFICE [address] [place] [address] 10/15/2016 11:19:51 10/28/2016 19:56:56 Shoulder joint pain 820241916 M25.511 M25.512 Diabetes mellitus 521251 09 E11.9 Muscle pain 35533060 M79 .1 15929 Partha Mike MD SV PAIN OFFICE [address] [place] [address] 11/01/2016 09:40:43 11/01/2016 11:47:54 Spinal stenosis of lumbar region 97518932 M48.06 Degenerati on of intervertebral disc 50865395 M51.17 M51.9 Diabetes mellitus 996255 09 E11.9 Lumbosacra l radiculitis 15424079 M54.17 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 53389667 M47.816 Shoulder joint pain 2679 12933 M25.511 M25.519 53195 Partha Mike MD PAIN OFFICE [address] [place] [address] 11/08/2016 10:31:25 11/08/2016 12:00:00 Spinal stenosis of lumbar region 51662345 M48.06 Degenerati on of intervertebral disc 42961658 M51.17 M51.9 Diabetes mellitus 492634 09 E11.9 Lumbosacra l radiculitis 82133835 M54.17 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 35385000 M47.816 Shoulder joint pain 2679 96076 M25.511 M25.519 21871 Partha Mike MD SV PAIN OFFICE [address] [place] [address] 12/10/2016 13:05:58 12/14/2016 09:38:18 Spinal stenosis of lumbar region 68893499 M48.06 Degenerati on of intervertebral disc 34701552 M51.17 M51.9 Diabetes mellitus 537281 09 E11.9 Lumbosacra l radiculitis 48990052 M54.17 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 53542386 M47.816 Shoulder joint pain 2679 72869 M25.511 M25.519 87516 Partha Mike MD PAIN OFFICE [address] [place] [address] 01/28/2017 13:25:41 01/31/2017 16:32:23 Spinal stenosis of lumbar region 39410587 M48.06 Degenerati on of intervertebral disc 56463706 M51.17 M51.9 Diabetes mellitus 560759 09 E11.9 Lumbosacra l radiculitis 70939302 M54.17 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 58798217 M47.816 Shoulder joint pain 2679 73432 M25.511 M25.519 92196 Partha Mike MD PAIN OFFICE [address] [place] [address] 02/19/2017 08:59:03 02/19/2017 16:04:37 Spinal stenosis of lumbar region 58370500 M48.06 Degenerati on of intervertebral disc 93717398 M51.17 M51.9 Diabetes mellitus 752180 09 E11.9 Lumbosacra l radiculitis 94149146 M54.17 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 77116945 M47.816 Shoulder joint pain 2679 89613 M25.511 M25.519 87163 Partha Mike MD PAIN OFFICE [address] [place] [address] 04/03/2017 08:29:28 04/05/2017 11:42:54 Spinal stenosis of lumbar region 80669068 M48.06 Degenerati on of intervertebral disc 34582795 M51.17 M51.9 Muscle pain 11015342 M79 .1 Diabetes mellitus 175858 09 E11.9 Lumbosacra l radiculitis 50953709 M54.17 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 67586075 M47.816 Shoulder joint pain 2679 47079 M25.511 M25.519 97761 Partha Mike MD PAIN OFFICE [address] [place] [address] 04/23/2017 14:01:21 04/24/2017 11:10:29 Spondylosis without myelopathy 12253687 M47.816 Spinal deepika nosis of lumbar region 61655456 M48.06 Degenerati on of intervertebral disc 78765226 M51.17 M51.9 Muscle pain 98498196 M79 .1 Diabetes mellitus 343488 09 E11.9 Lumbosacra l radiculitis 66144319 M54.17 Shoulder joint pain 2679 54652 M25.511 M25.519 53520 Partha Mike MD PAIN OFFICE [address] [place] [address] 05/22/2017 14:27:24 06/03/2017 11:45:59 Spondylosis without myelopathy 80355199 M47.816 Spinal deepika nosis of lumbar region 97857201 M48.062 Degenerati on of intervertebral disc 61622736 M51.17 M51.9 Muscle pain 61553612 M79 .1 Diabetes mellitus 186352 09 E11.9 Lumbosacra l radiculitis 81967232 M54.17 Shoulder joint pain 2679 61060 M25.511 M25.519 29575 Partha Mike MD PAIN OFFICE [address] [place] [address] 06/11/2017 14:41:01 06/16/2017 15:47:44 Spondylosis without myelopathy 07417793 M47.816 Spinal deepika nosis of lumbar region 81283580 M48.062 Degenerati on of intervertebral disc 66250442 M51.17 M51.9 Muscle pain 38598171 M79 .1 Diabetes mellitus 083534 09 E11.9 Lumbosacra l radiculitis 46073866 M54.17 Shoulder joint pain 2679 10970 M25.511 M25.519 74777 Partha Mike MD PAIN OFFICE [address] [place] [address] 07/22/2017 10:58:27 07/24/2017 15:55:08 Lumbosacral radiculitis 40558952 M54.17 Spinal deepika nosis of lumbar region 10567826 M48.062 Degenerati on of intervertebral disc 58135435 M51.17 M51.9 Diabetes mellitus 270189 09 E11.9 91986 Partha Mike MD PAIN OFFICE [address] [facility] [place] [address] 08/02/2017 09:59:43 08/02/2017 11:37:37 Spondylosis without myelopathy 19352970 M47.816 Spinal deepika nosis of lumbar region 16648254 M48.062 Degenerati on of intervertebral disc 41554335 M51.17 M51.9 Muscle pain 01883293 M79 .1 Diabetes mellitus 663659 09 E11.9 Lumbosacra l radiculitis 66266610 M54.17 Shoulder joint pain 2679 48301 M25.511 M25.519 91802 Partha Mike MD PAIN OFFICE [address] [facility] [place] [address] 12/19/2017 14:28:38 12/19/2017 15:54:30 Spinal stenosis of lumbar region 33948664 M48.062 Degenerati on of intervertebral disc 89841125 M51.17 M51.9 Diabetes mellitus 630766 09 E11.9 Lumbosacra l radiculitis 54133659 M54.17 Shoulder joint pain 2679 28773 M25.511 M25.519 19047 Partha Mike MD PAIN OFFICE [address] [facility] [place] [address] 01/08/2018 11:03:45 01/09/2018 14:15:32 Spinal stenosis of lumbar region 36534434 M48.062 Degenerati on of intervertebral disc 23967359 M51.17 M51.9 Diabetes mellitus 024428 09 E11.9 Lumbosacra l radiculitis 39055339 M54.17 Shoulder joint pain 2679 33907 M25.511 M25.519 07024 Partha Mike MD SV PAIN OFFICE [address] [place] [address] 05/28/2018 09:58:40 05/28/2018 15:27:55 Spinal stenosis of lumbar region 82651864 M48.062 Degenerati on of intervertebral disc 96736249 M51.17 M51.9 Diabetes mellitus 525568 09 E11.9 Lumbosacra l radiculitis 00013230 M54.17 Shoulder joint pain 2679 58350 M25.511 M25.519 37868 Partha Mike MD SV PAIN OFFICE [address] [place] [address] 10/20/2018 11:37:41 10/20/2018 13:56:50 Spinal stenosis of lumbar region 91680202 M48.062 Degenerati on of intervertebral disc 62169518 M51.17 M51.9 Diabetes mellitus 135747 09 E11.9 Lumbosacra l radiculitis 03033058 M54.17 Shoulder joint pain 2679 62020 M25.511 M25.519 24864 Partha Mike MD PAIN OFFICE [address] [place] [address] 12/09/2018 09:04:43 12/10/2018 10:50:34 Spinal stenosis of lumbar region 17400779 M48.062 Degenerati on of intervertebral disc 86525281 M51.17 M51.9 Diabetes mellitus 703271 09 E11.9 Lumbosacra l radiculitis 79201446 M54.17 Shoulder joint pain 2679 51507 M25.511 M25.519 77476 Partha Mike MD SV PAIN OFFICE [address] [place] [address] 03/10/2019 09:36:54 03/11/2019 13:42:01 Spinal stenosis of lumbar region 43688589 M48.062 Degenerati on of intervertebral disc 52173986 M51.17 M51.9 Diabetes mellitus 231438 09 E11.9 Lumbosacra l radiculitis 27683774 M54.17 Shoulder joint pain 2679 93762 M25.511 M25.519 Muscle pain 74614416 M79 .18 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 52804729 M47.816 42596 Partha Mike MD PAIN OFFICE [address] [place] [address] 06/03/2019 08:17:28 06/05/2019 15:46:22 Spinal stenosis of lumbar region 83804460 M48.062 Degenerati on of intervertebral disc 24166562 M51.17 M51.9 Diabetes mellitus 302860 09 E11.9 Lumbosacra l radiculitis 14625786 M54.17 Shoulder joint pain 2679 93748 M25.511 M25.519 Muscle pain 28837818 M79 .18 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 01275837 M47.816 67966 Partha Mike MD PAIN OFFICE [address] [place] [address] 09/01/2019 13:03:14 09/08/2019 10:49:39 Spinal stenosis of lumbar region 53400651 M48.062 Degenerati on of intervertebral disc 46644108 M51.17 M51.9 Diabetes mellitus 983480 09 E11.9 Lumbosacra l radiculitis 10346197 M54.17 Shoulder joint pain 2679 90495 M25.511 M25.519 Muscle pain 65304162 M79 .18 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 33696415 M47.816 50819 Partha Mike MD PAIN OFFICE [address] [place] [address] 09/17/2019 10:01:22 09/18/2019 16:23:35 Shoulder joint pain 215704470 M25.511 M25.519 09652 Partha Mike MD PAIN OFFICE [address] [place] [address] 12/28/2019 11:05:53 01/12/2020 12:30:52 Spinal stenosis of lumbar region 67893170 M48.062 Degenerati on of intervertebral disc 47195982 M51.17 M51.9 Diabetes mellitus 216879 09 E11.9 Lumbosacra l radiculitis 51085124 M54.17 Shoulder joint pain 2679 31872 M25.511 M25.519 52207 Partha Mike MD PAIN OFFICE [address] [facility] [place] [address] 01/12/2020 13:27:29 01/14/2020 10:17:33 Spinal stenosis of lumbar region 76618802 M48.062 Degenerati on of intervertebral disc 41976528 M51.17 M51.9 Diabetes mellitus 322444 09 E11.9 Lumbosacra l radiculitis 39490667 M54.17 Shoulder joint pain 2679 60936 M25.511 M25.519 Muscle pain 03151093 M79 .18 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 41903127 M47.816 54817 Partha Mike MD PAIN OFFICE [address] [place] [address] 02/12/2020 10:33:05 02/12/2020 12:16:21 Degeneration of intervertebral disc 54377823 M51.17 M51.9 Diabetes mellitus 374619 09 E11.9 Lumbosacra l radiculitis 30831106 M54.17 Muscle pain 40223883 M79 .18 Spinal deepika nosis of lumbar region 26009774 M48.062 54790 Partha Mike MD PAIN OFFICE [address] [place] [address] 04/19/2020 11:04:03 04/19/2020 16:28:26 Spinal stenosis of lumbar region 15876532 M48.062 Degenerati on of intervertebral disc 86103787 M51.17 M51.9 Diabetes mellitus 010165 09 E11.9 Lumbosacra l radiculitis 77111016 M54.17 Shoulder joint pain 2679 49400 M25.511 M25.519 Muscle pain 36879677 M79 .18 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 23608454 M47.816 39423 Partha Mike MD PAIN OFFICE [address] [place] [address] 07/12/2020 11:35:48 07/12/2020 16:22:01 Spinal stenosis of lumbar region 78760626 M48.062 Degenerati on of intervertebral disc 42270509 M51.17 M51.9 Diabetes mellitus 926560 09 E11.9 Lumbosacra l radiculitis 19720436 M54.17 Shoulder joint pain 2679 13620 M25.511 M25.519 Muscle pain 57188794 M79 .18 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 83315561 M47.816 77741 Partha Mike MD PAIN OFFICE [address] [place] [address] 10/04/2020 11:41:18 10/05/2020 14:19:50 Spinal stenosis of lumbar region 07699985 M48.062 Degenerati on of intervertebral disc 32116041 M51.17 M51.9 Diabetes mellitus 335907 09 E11.9 Lumbosacra l radiculitis 87406402 M54.17 Shoulder joint pain 2679 07065 M25.511 M25.519 Muscle pain 13495272 M79 .18 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 76982212 M47.816 36144 Partha Mike MD PAIN OFFICE [address] [place] [address] 01/03/2021 10:40:29 01/03/2021 15:47:46 Spinal stenosis of lumbar region 95957334 M48.062 Degenerati on of intervertebral disc 07552400 M51.17 M51.9 Diabetes mellitus 464402 09 E11.9 Lumbosacra l radiculitis 57883164 M54.17 Shoulder joint pain 2679 91123 M25.511 M25.519 Muscle pain 54707481 M79 .18 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 97274672 M47.816 50030 Partha Mike MD PAIN OFFICE [address] [place] [address] 03/31/2021 11:22:58 04/03/2021 08:59:53 Spondylosis without myelopathy 25776523 M47.816 Spinal deepika nosis of lumbar region 34189204 M48.062 Degenerati on of intervertebral disc 34397079 M51.17 M51.9 Muscle pain 19576608 M79 .18 Diabetes mellitus 587843 09 E11.9 Lumbosacra l radiculitis 57144808 M54.17 Shoulder joint pain 2679 98659 M25.511 M25.519 43440 Partha Mike MD PAIN OFFICE [address] [place] [address] 04/18/2021 10:28:27 04/18/2021 13:46:52 Spinal stenosis of lumbar region 96002186 M48.062 Degenerati on of intervertebral disc 50223261 M51.17 M51.9 Diabetes mellitus 399361 09 E11.9 Lumbosacra l radiculitis 11170236 M54.17 Shoulder joint pain 2679 39734 M25.511 M25.519 Muscle pain 77490370 M79 .18 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 10420702 M47.816 00030 Partha Mike MD PAIN OFFICE [address] [place] [address] 07/25/2021 10:05:25 07/25/2021 15:04:09 Spinal stenosis of lumbar region 37921685 M48.062 Degenerati on of intervertebral disc 24792632 M51.17 M51.9 Diabetes mellitus 608974 09 E11.9 Lumbosacra l radiculitis 77815969 M54.17 Shoulder joint pain 2679 91694 M25.511 M25.519 Muscle pain 71305721 M79 .18 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 00330817 M47.816 44283 Partha Mike MD PAIN OFFICE [address] [place] [address] 10/03/2021 11:29:19 10/03/2021 14:14:03 Diabetes mellitus 96790599 E11.9 Lumbar post-laminectomy syndrome 494446328 M96.1 Inflammati on of sacroiliac joint 77826105 M46.1 60254 Partha Mike MD PAIN OFFICE [address] [place] [address] 10/04/2021 10:35:06 10/04/2021 16:23:26 Diabetes mellitus 91080314 E11.9 Lumbar post-laminectomy syndrome 651996986 M96.1 Inflammati on of sacroiliac joint 65059078 M46.1 73802 Partha Mike MD PAIN OFFICE [address] [facility] [place] [address] 10/30/2021 09:25:15 10/30/2021 09:31:03 Diabetes mellitus 56923924 E11.9 Lumbar post-laminectomy syndrome 350626148 M96.1 Inflammati on of sacroiliac joint 94787280 M46.1 95788 Partha Mike MD PAIN OFFICE [address] [facility] [place] [address] 01/02/2022 15:17:13 01/02/2022 16:35:15 Spinal stenosis of lumbar region 09778733 M48.062 Degenerati on of intervertebral disc 07837643 M51.17 M51.9 Diabetes mellitus 702103 09 E11.9 Lumbosacra l radiculitis 43889807 M54.17 Shoulder joint pain 2679 38259 M25.511 M25.519 Muscle pain 20609322 M79 .18 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 00002617 M47.816 19122 Partha Mike MD PAIN OFFICE [address] [facility] [place] [address] 04/25/2022 10:05:34 04/25/2022 10:54:23 Lumbosacral radiculopathy 5490775 M54.17 Degenerati on of lumbar intervertebral disc 73326899 M51.36 87342 Partha Mike MD PAIN OFFICE [address] [facility] [place] [address] 07/31/2022 12:59:02 07/31/2022 13:28:12 Lumbosacral radiculopathy 4235350 M54.17 Degenerati on of lumbar intervertebral disc 76557224 M51.36 23737 Partha Mike MD PAIN OFFICE [address] [facility] [place] [address] 10/23/2022 14:25:44 10/24/2022 09:29:06 Lumbosacral radiculitis 54536005 M54.17 Lumbosacra l radiculopathy 3303734 M54.17 Degenerati on of lumbar intervertebral disc 39300079 M51.36 07512 Partha Mike MD SV PAIN OFFICE [address] [facility] [place] [address] 01/08/2023 14:34:27 01/08/2023 16:27:27 Lumbosacral radiculopathy 2588632 M54.17 Degenerati on of lumbar intervertebral disc 26164644 M51.36 04820 Partha Mike MD PAIN OFFICE [address] [facility] [place] [address] 06/12/2023 14:08:28 06/12/2023 15:59:40 Spinal stenosis of lumbar region 33736587 M48.062 Lumbosacra l radiculopathy 6331494 M54.17 Degenerati on of lumbar intervertebral disc 57294823 M51.36 80255 Partha Mike MD PAIN OFFICE [address] [facility] [place] [address] 11/05/2023 10:51:33 11/05/2023 12:02:11 Lumbosacral radiculitis 74525739 M54.17 Lumbosacra l radiculopathy 7864397 M54.17 Degenerati on of lumbar intervertebral disc 41935244 M51.36 Lumbar post-laminectomy syndrome 433017376 M96.1 23846 Partha Mike MD PAIN OFFICE [address] [facility] [place] [address] 12/04/2023 12:58:53 12/04/2023 14:55:08 Spinal stenosis of lumbar region 39999677 M48.062 Lumbosacra l radiculopathy 4037566 M54.17 Degenerati on of lumbar intervertebral disc 77856611 M51.36 54591 Partha Mike MD SV PAIN OFFICE [address] [place] [address] 03/05/2024 11:00:26 03/05/2024 13:23:09 Spinal stenosis of lumbar region 61140232 M48.062 Lumbosacra l radiculitis 23281188 M54.17 Lumbosacra l radiculopathy 9079802 M54.17 Degenerati on of lumbar intervertebral disc 12096395 M51.36 Lumbar post-laminectomy syndrome 584820174 M96.1 63677 Partha Mike MD SV PAIN OFFICE [address] [place] [address] 03/24/2024 11:06:25 03/24/2024 11:33:08 Spinal stenosis of lumbar region 80336388 M48.062 Lumbosacra l radiculopathy 1809908 M54.17 Degenerati on of lumbar intervertebral disc 13914524 M51.36 16645 Partha Mike MD SV PAIN OFFICE [address] [place] [address] 06/26/2024 10:56:44 06/26/2024 11:28:46 Spinal stenosis of lumbar region 24382438 M48.062 Lumbosacra l radiculitis 08900812 M54.17 Lumbosacra l radiculopathy 6232396 M54.17 Degenerati on of lumbar intervertebral disc 88297002 M51.362 Lumbar post-laminectomy syndrome 560365908 M96.1 68191 Partha Mike MD SV PAIN OFFICE [address] [place] [address] 07/15/2024 08:21:12 07/15/2024 11:16:14 Spinal stenosis of lumbar region 81270367 M48.062 Lumbosacra l radiculopathy 8224265 M54.17 Degenerati on of lumbar intervertebral disc 14042223 M51.362 77064 Partha Mike MD SV PAIN OFFICE [address] [place] [address] 10/16/2024 09:44:30 10/16/2024 11:21:12 Lumbosacral radiculitis 76169899 M54.17 Spinal deepika nosis of lumbar region 21468118 M48.062 Lumbosacra l radiculopathy 1143696 M54.17 Degenerati on of lumbar intervertebral disc 36244423 M51.362 Lumbar post-laminectomy syndrome 497180433 M96.1 04633 Partha Mike MD [facility] PAIN OFF[facility] [address] [facility] [address] [place] [address] 12/01/2024 09:07:05 12/01/2024 16:42:50 Lumbosacral radiculitis 50050416 M54.17 Spinal deepika nosis of lumbar region 57880610 M48.062 Lumbosacra l radiculopathy 0654468 M54.17 Degenerati on of lumbar intervertebral disc 29686920 M51.362 Health Concerns Section Related Observation LastModified by Organization Detai ls LastModified Time None Recorded Concern Status LastModified by Organization Details LastModified Time None Recorded Advance Directives Directive None Recorded Payers Insurance Date Sequence Insurance Name Policy Number Policy Honeycutt Covered Member ID Honeycutt Member ID Guarantor Name 10/30/2021 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 [id number] Cole Taylor 10/30/2021 2 [employer] (MEDICARE SUPPLEMENT) Cole Taylor [id number] Cole Taylor 11/05/2023 2 [employer] (MEDICARE SUPPLEMENT) Cole Taylor [id number] Cole Taylor 10/16/2024 1 [employer] ([place]) [id number] Cole Taylor [id number] Cole Taylor 11/28/2024 1 [facility] (MEDICARE REPLACEMENT/AD VANTAGE - HMO) [id number] Cole Taylor [id number] Cole Taylor Notes Date Note Type Note Provider Name and Address Organization Details Recorded Time 03/24/2024 text/html He is here for a repeat lumbar epidural steroid injection under fluoroscopic guidance. Partha Mike MD [address] [facility] , [address], [place], [address], [facility] 03/24/2024 11:36:06 06/26/2024 text/html Cole [...] has trialed physical therapy at the in [place] with some pain benefit. He has recently joined the for a gym membership and is doing aquatic exercises.He has a lumbar epidural steroid injection on 03/24/2024. He reports 90% pain benefit for three months with a return of pain back to baseline. He states he was more active after the injection and was doing work around the house . Partha Mike MD [address] , [address], [place], [address], [place] [facility] 06/29/2024 14:20:49 07/15/2024 text/html He is here for a repeat lumbar epidural steroid injection under fluoroscopic guidance. Partha Mike MD [address] , [address], [place], [address], [place] [facility] 07/15/2024 11:23:42 10/16/2024 text/html Cole [...] has trialed physical therapy at the in [place] with some pain benefit. He has recently joined the for a gym membership and is doing aquatic exercises.He has a lumbar epidural steroid injection on 07/15/2024. He reports 90% pain benefit for three months with a return of pain back to baseline. He states he was more active after the injection and was doing work around the house . Partha Mike MD [address] [facility] , [address], [place], [address], [place] [facility] 10/19/2024 11:06:40 12/01/2024 text/html He is here for a repeat lumbar epidural steroid injection under fluoroscopic guidance. Partha Mike MD [address] [facility] , [address], [place], [address], [place] [facility] 12/01/2024 16:50:50
--- OUTSIDE RECORDS SUMMARY | 2025-03-05 08:23 | XMS_ITS | Patient Health Record ---
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 Role Phone Yvon Mckoy Jr, MD Primary Care Provider Unavail able Benyambar Nikkie Unavailable [phone] Allergies Allergen (clinical drug ingredient) Drug/Non Drug [...] 25 MG 1 tablet Orally Once a day; Duration: 30 day(s) Not-Taking Potassium Chloride U nknown amLODIPine Besylate Unknown Spironolactone 25 MG 1 tablet Orally; Duration: 30 day(s) Active Felodipine ER 5 MG as directed Orally Active Gabapentin Active metFORMIN HCl Active Pravastatin Sodium A ctive Colace 100 MG 1 capsule as needed Orally Once a day; Duration: 30 day(s) Active Voltaren 1 % as directed Externally Active Aspirin Active tiZANidine HCl 4 MG 1 tablet as needed Orally Three times a day Active Carvedilol 25 MG 1 tablet with food Orally Twice a day; Duration: 30 day(s) Active Narcan 4 MG/0.1ML as directed Nasally Active Meloxicam 15 MG 1 tablet Orally Once a day; Duration: 30 day(s) Active Famotidine 20 MG 1 tablet at bedtime as needed Orally Once a day; Duration: 30 day(s) Active Accu-Chek Guide w/Device as directed Active Pravastatin Sodium 40 MG 1 tablet Orally Once a day; Duration: 30 day(s) Active oxyCODONE-Acetaminophen 5-325 MG 1 [...] disorder associated with type II diabetes mellitus (912701332) Type 2 diabetes mellitus with other diabetic neurological complication (E11.49) Active confirmed Problem Gout (61028540) Gout of left foot (M10.9) Active confirmed Rx drug management (4) Problem Gout (45192312) Gout of right foot (M10.9) Active confirmed Rx drug management (4) Problem 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 (937022987) 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 Rx drug management (4) Problem Chronic gouty arthritis (79944454) 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) Active confirmed Rx drug management (4) Plan Of Treatment No Information Insurance Providers Payer Name Payer Address Payer Phone Subscriber Number Group Number Insured Name Patient Relationship to Insured Coverage Start Date Coverage End Date Medicare [employer] [address] [place] [address] [phone] [id number] Cole Taylor Self - patient is the insured A[employer] Secondary to Medicare [address] [place] [address] [id number] Cole Taylor Self - patient is the insured Medical (General) History Medical History History ICD Code Back,Hip,and Knee pain type II diabetes Diverticulosis Gout High blood pressure Sciatica Chicken pox Arthritis Numbness Diabetic Reflux ( GERD) Surgical History Surgery Date(Month/Year) back 06/19/2010 tonsills 1970s
[2025-03-10 19:23] LABS: Testosterone, Free 33.2 pg/mL (30.0-135.0)
== END 2025-03-05 08:17 | disposition home or self-care (01) ==
LOC: HO.LAB 08:16
PROVIDERS: Visit Provider Urology
DX: E11.69 Type 2 diabetes mellitus with other specified complication (principal); N52.1 Erectile dysfunction due to diseases classified elsewhere
CPT/HCPCS: 36415; 84402; 84403

== ENCOUNTER 2025-03-23 10:13 | Outpatient (AMB) | payer MEDICARE, SELFPAY ==
--- NOTE | 2025-03-23 10:14 | MHC.OFFVIS ---
Intake Visit Reasons: 3m/Testo Intake Note: Patient is present for 3M/TESTO Urology Medication:TESTOSTERONE Antibiotic Allergy:PREGABALIN LABS DONE 03/05/25: TOTAL TESTOSTERONE :234, FREE TESTOSTERONE 33.2 Blood Thinner:ASPIRIN Roving Can Tender Required: No Accompanied by: Self / Same As Patient Allergies ibuprofen (From [facility]) Allergy (Intermediate, Verified 03/23/25 10:17) lethargy pregabalin (From LYRICA) Allergy (Intermediate, Verified 03/23/25 10:17) SKIN CRAWL HPI Comments Details: Cole is a very pleasant male. He is a patient of Dr. Mckoy. He is seen for the following urologic condition. - erectile dysfunction - low libido - urinary frequency Telemedicine Evaluation 15 min Consultation [employer] Video Followup from starting testosterone gel Not appropriate lab work response Increase to 3 pumps Significant nocturia secondary to Jardiance Recommend to PCP to initiate lowest dose possible SGLT2 given negative impact on nocturia and sleep quality Testosterone under 300 setting of diabetes with decreased energy Hypogonadism T 09/19 266, LH 5.3, 03/19 T 240 Diabetic Initial symptomatology includes decreased energy and quality of erections Initial lab work indicates 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 Current therapy - testosterone 2 pumps per day Erectile dysfunction Penile implant placed proximally 2014 Has had issues with activation Concern about prior infection with MRI that was negative in November 2019 On examination today prosthetic was only partially deflated We went through discussion and instruction for full deflation followed by full inflation Prosthesis is mechanically intact with good inflation and Good deflation He had some degree of uncertainty about the exact process for each of these functions and this was addressed in the visit today [facility] Medical History (Updated 12/22/24 @ 09:38 by Louis Mccurdy MD) Morbid obesity Diabetes Sleep apnea Elevated cholesterol HTN (hypertension) BPH (benign prostatic hyperplasia) Vertigo Depression Spinal stenosis Chronic, continuous use of opioids Surgical History History of hemilaminectomy H/O colonoscopy Hx of appendectomy Family History Father Esophageal cancer Paternal Uncle Cancer Social History Alcohol intake: current Patient Tobacco Use Status: Never used Tobacco Review of Systems Const All systems reviewed & are unremarkable except as noted in HPI and below Reports no additional complaints Resp Reports no additional complaints GI Reports no additional complaints Reports as per HPI Musc Reports no additional complaints Physical Exam Telemedicine evaluation Appropriate responses Regular breathing rate and rhythm HEENT Head: Yes normal to inspection Ears: hearing grossly normal bilaterally Eyes General: appearance normal, both eyes and all related structures Neck Neck: Yes normal visual inspection Chest Chest palpation & inspection: normal inspection of the chest Resp Effort & Inspection: normal respiratory effort and able to speak in complete sentences Telehealth Telehealth Telehealth Platform: [employer] Location of provider rendering services: practice address Location of patient: address on file Patient Identification confirmed using: Name, : Yes Telehealth method: video Patient verbally consented to treatment: Yes Patient verbally consented to billing insurance company: Yes Patient informed of any privacy concerns related to visit: Yes Minutes spent on Phone/Video with Pt.: 15 Assessment & Plan Assessment & Plan (1) Erectile dysfunction associated with type 2 diabetes mellitus: Code(s): E11.69 - Type 2 diabetes mellitus with other specified complication; N52.1 - Erectile dysfunction due to diseases classified elsewhere Category: Medical (2) BPH (benign prostatic hyperplasia): Code(s): N40.0 - Benign prostatic hyperplasia without lower urinary tract symptoms Category: Medical Plan 12 week follow-up Orders: Orders Testosterone, Free/Total 10 Weeks E29.1 - Testicular hypofunction Medications: Changed From testosterone apply 2 pumps over max area - alternate shoulders on alternate days 2 pumps topical DAILY 30 days 75 grams 2RF E29.1 - Testicular hypofunction, R79.89 - Other specified abnormal findings of blood chemistry To testosterone apply 2 pumps over max area - alternate shoulders on alternate days 3 pumps topical DAILY 150 grams 2RF 30 days E29.1 - Testicular hypofunction, R79.89 - Other specified abnormal findings of blood chemistry Patient Instructions: This note is constructed using voice recognition software. While every effort has been made to ensure accuracy auto winder errors may have been included. Imaging studies, laboratory and physical exam results were discussed and reviewed in detail. No major barriers to patient understanding were identified. An opportunity to ask questions regarding the treatment plan was provided. All questions were answered. The patient expressed understanding and agreement with the above treatment plan. The patient is aware they should contact our office by phone for worsening of their current condition or the appearance of new urologic symptoms. Compliance is encouraged with any medications and followup testing that is ordered. It is a privilege to participate in the urologic care of your patient. If you have any questions or concerns regarding treatment for the above conditions, or other urologic issues, please do not hesitate to contact me. The office telephone contact is [phone]. Sincerely, Dr Louis Mccurdy MD, [facility] - Urology Compassionate Specialist Care for the Genitourinary System Coding Level of Care Code Tele Est Pt Level 4 (09671) Diagnoses Erectile dysfunction associated with type 2 diabetes mellitus E11.69; N52.1 BPH (benign prostatic hyperplasia) N40.0
--- OUTSIDE RECORDS SUMMARY | 2025-03-23 11:04 | XMS_ITS | Clinical Summary ---
Author Organization [facility] Address [address] [place] [address] Care Team Providers Care Sail Cutter Name Role Phone Yojana Knight Primary Care [...] DAY BY ORAL ROUTE FOR 90 DAYS. 12/26/2024 Active metFORMIN (GLUCOPHAGE) 500 mg tablet 1 [...] ears 2 (two) times daily. 15 mL 01/11/2025 Active meloxicam (MOBIC) 15 mg tablet Take 1 Tablet by mouth once daily. 90 Tablet 02/04/2025 Active lidocaine (LIDODERM) 5 % patchIndication s:Chronic bilateral low back pain with bilateral sciatica Place 1 Patch onto the skin daily Apply 1 patch to the affected area for a maximum of 12 hours, followed by removal for 12 hours.. 30 Patch 2 02/04/2025 Active pravastatin (PRAVACHOL) 40 mg tablet Take 1 Tablet by mouth once daily. 90 Tablet 02/04/2025 Active Active Problems No known active problems Encounters Date Type Department Care Team Description 01/27/2025 2:20 PM EDT Office Visit [address] [phone] Shelby Lara RN 01/11/2025 1:00 PM EDT Office Visit [address] [phone] Yojana Knight FNP from Last 3 Months [...] 1994 Fecal DNA 1994 Flexible Sigmoidoscopy 1994 [id number] ( season) 2025 04/29/2024, 05/27/2023, 06/12/2022, Additional [...] EDT Routine general medical examination at a [facility] care facility IRON, TIBC, FERRITIN PANEL Routine 01/11/2025 2:38 PM EDT Routine general medical examination at a [facility] care facility URINALYSIS, COMPLETE W/REFLEX TO CULTURE Routine 01/11/2025 2:38 PM EDT Routine general medical examination at a [facility] care facility PROSTATE SPECIFIC ANTIGEN, FREE AND TOTAL Routine 01/11/2025 2:38 PM EDT Routine general medical examination at a [facility] care facility HEPATITIS C AB W/RFLX HCV RNA, QT, RT PCR Routine 01/11/2025 2:38 PM EDT Routine general medical examination at a health care facility BLOOD COUNT COMPLETE AUTO&AUTO DIFRNTL WBC Routine 01/11/2025 2:38 PM EDT Routine general medical examination at a health care facility COMPREHENSIVE METABOLIC PANEL Routine 01/11/2025 2:38 PM EDT Routine general medical examination at a health care facility TSH W/RFLX FREE T4 Routine 01/11/2025 2: 38 PM EDT Routine general medical examination at a health care facility HEMOGLOBIN GLYCOSYLATED A1C Routine 01/11/2025 2:38 PM EDT Routine general medical examination at a health care facility LIPID PANEL Routine 01/11/2025 2:38 PM EDT Routine general medical examination at a [facility] care facility REFERRAL TO OPHTHALMOLOGY Routine 01/11/2025 3:00 AM EDT Routine general medical examination at a [facility] care facility from Last 3 Months Results * REMOVAL IMPACTED CERUMEN INSTRUMENTATION UNILAT, HC REMOVAL IMPACTED CERUMEN INSTRUMENTATION UNILAT(02/01/2025 4:28 PM EDT) Narrative Shelby Lara RN - 02/01/2025 4:28 PM EDT Shelby [...] pain Alternatives discussed: No treatment Shelby Lara RESEARCH SOIL SCIENTIST Final Result * HEPATITIS C AB W/RFLX HCV RNA, QT, RT PCR Routine (01/11/2025 2:38 PM EDT) Pathologist [facility] HEPATITIS C ANTIBODY NON-REACT CLAUDIO NON-REACT CLAUDIO [facility] Comment: HCV antibody was non-reactive. There is no laboratory evidence of HCV infection. In most cases, no further action is required. However, if recent HCV exposure is suspected, a test for HCV RNA (test code 84792) is suggested. For additional information please refer to http://education.Spor Chargers/faq/SBN47a2 (This link is being provided for informational/ educational purposes only.) Blood Blood / Unknown 01/11/2025 2 :38 PM EDT 01/11/2025 2:38 PM EDT Yojana Knight [facility] - BLOOD DRAW Edited Resu lt - Final [facility] [address] [address], [facility] [address] [address] * (ABNORMAL) IRON, TIBC, FERRITIN PANEL Routine (01/11/2025 2:38 PM EDT) Pathologist [facility] FERRITIN 45 24 - 380 ng/mL [facility] IRON, TOTAL 111 50 - 180 mcg/dL [facility] IRON BINDING CAPACITY 450(H) 250 - 425 mcg/dL (calc) [facility] % SATURATION 25 20 - 48 % (calc) [facility] Blood Blood / Unknown 01/11/2025 2 :38 PM EDT 01/11/2025 2:38 PM EDT us Yojana Knight [facility] - BLOOD DRAW Final Resul t Performing Organization Address [facility]/ZIP Co de Phone Number [facility] [address] [address], [facility] [address] [address] * TSH W/RFLX FREE T4 Routine (01/11/2025 2:38 PM EDT) [facility] TSH W/REFLEX TO FT4 0.81 0.40 - 4.50 mIU/L [facility] Blood Blood / Unknown 01/11/2025 2 :38 PM EDT 01/11/2025 2:38 PM EDT us Yojana Knight [facility] - BLOOD DRAW Edited Resu lt - Final Performing Organization Address [facility]/ZIP Co de Phone Number [facility] [address] [address], [facility] [address] [address] * (ABNORMAL) VITAMIN D, 1,25-DIHYDROXY Routine (01/11/2025 2:38 PM EDT) Pathologist [facility] VITAMIN D, 1, 25 (OH)2, TOTAL 15(L) 18 - 72 pg/mL [facility] VITAMIN D3, 1, 25 (OH)2 15 pg/mL [facility] [employer] [place] VITAMIN D2, 1, 25 (OH)2 <8 pg/mL [facility] [employer] [place] Comment: Vitamin D3, 1,25(OH)2 indicates both endogenous production and supplementation. Vitamin D2, 1,25(OH)2 is an indicator of exogenous sources, such as diet or supplementation. Interpretation and therapy are based on measurement of Vitamin D,1,25(OH)2, Total. This test was developed and its analytical performance characteristics have been determined by [employer] [place], [place]. It has not been cleared or approved by the FDA. This assay has been validated pursuant to the CLIA regulations and is used for clinical purposes. Blood Blood / Unknown 01/11/2025 2 :38 PM EDT 01/11/2025 2:38 PM EDT Yojana Knight [facility] - BLOOD DRAW Final Resul t [facility] [place] [address] [place], [place] , [facility] [place] [id number] [place] [address] * (ABNORMAL) URINALYSIS, COMPLETE W/REFLEX TO CULTURE Urine Routine (01/11/2025 2:38 PM EDT) COLOR DARK YELLOW YELLOW [facility] APPEARANCE CLEAR CLEAR [facility] SPECIFIC GRAVITY 1.036(H) 1.001 - 1.035 [facility] URINE PH < OR = 5.0(A) 5.0 - 8.0 [facility] GLUCOSE 3+(A) NEGATIVE [facility] BILIRUBIN NEGATIVE NEGATIVE [facility] KETONES NEGATIVE NEGATIVE [facility] OCCULT BLOOD NEGATIVE NEGATIVE [facility] URINE PROTEIN NEGATIVE NEGATIVE [facility] NITRITE NEGATIVE NEGATIVE [facility] LEUKOCYTE ESTERASE NEGATIVE NEGATIVE [facility] URINE LEUKOCYTES NONE SEEN < OR = 5 [facility] RBC NONE SEEN < OR = 2 [facility] SQUAMOUS EPITHELIAL CELLS NONE SEEN < OR = 5 [facility] BACTERIA NONE SEEN NONE SEEN [facility] HYALINE CAST NONE SEEN NONE SEEN [facility] SEE NOTE See Below [facility] Comment: This urine was analyzed for the presence of WBC, RBC, bacteria, casts, and other formed elements. Only those elements seen were reported. Urine Urine specimen / Unknown 01/11/2025 2:38 PM EDT 01/11/2025 2:38 PM EDT Yojanagonzalez Knight [facility] URINE AMBULATORY Edited Result - Final Performing Organization Address [facility] Co de Phone Number [facility] [address] [address], [facility] [address] [address] * RFLX - REFLEXIVE URINE CULTURE Routine (01/11/2025 2:38 PM EDT) REFLEXIVE URINE CULTURE See Below [facility] Comment:NO CULTURE INDICATED 01/11/2025 2:38 PM EDT 01/11/2025 2:38 PM EDT Yojana Knight [facility] - MICROBIOLOGY AMBULATOR Y Edited Result - Final Performing Organization Address [facility] de Phone Number [facility] [address] [address], [facility] [address] [address] * (ABNORMAL) TESTOSTERONE, FREE AND TOTAL Routine (01/11/2025 2:38 PM EDT) TESTOSTERONE, TOTAL, LC/MS/MS 190(L) 250 - 1,100 ng/dL [facility] Comment: Men with clinically significant hypogonadal symptoms and testosterone values repeatedly in the range of the 200-300 ng/dL or less, may benefit from testosterone treatment after adequate risk and benefits counseling. For additional information, please refer to http://education.Survature.Mobilio/faq/ EdvhhXopdhrznvffuTKIDOVLVR965 (This link is being provided for informational/ educational purposes only.) This test was developed and its analytical performance characteristics have been determined by [employer] [place], [place]. It has not been cleared or approved by the U.S. Food and Drug Administration. This assay has been validated pursuant to the CLIA regulations and is used for clinical purposes. FREE TESTOSTERONE 23.2(L) 30.0 - 135.0 pg/mL [facility] Comment: This test was developed and its analytical performance characteristics have been determined by [employer] [place], [place]. It has not been cleared or approved by the U.S. Food and Drug Administration. This assay has been validated pursuant to the CLIA regulations and is used for clinical purposes. Blood Blood / Unknown 01/11/2025 2 :38 PM EDT 01/11/2025 2:38 PM EDT Yojana Knight [facility] - BLOOD DRAW Edited Resu lt - Final [facility] [place] [address] [place], [place] , [facility] [place] [address] [place], [place] * (ABNORMAL) PROSTATE SPECIFIC ANTIGEN, FREE AND TOTAL Routine (01/11/2025 2:38 PM EDT) TOTAL PSA 5.9(H) < OR = 4.0 ng/mL [facility] FREE PSA 1.2 ng/mL [facility] % FREE PSA 20(L) >25 % (calc) [facility] Comment: PSA(ng/mL) Free PSA(%) Estimated(x) Probability of Cancer(as%) 0-2.5 (*) Approx. 1 2.6-4.0(1) 0-27(2) 24(3) 4.1-10(4) 0-10 56 11-15 28 16-20 20 21-25 16 >or =26 8 >10(+) N/A >50 References:(1)Tarun et al.:Urology 60: 469-474 (2002) (2)Tarun et al.:J.Urol 168: 922-925 (2002) Free PSA(%) Sensitivity(%) Specificity(%) < or = 25 85 19 < or = 30 93 9 (3)Catalona et al.:SILVINO 277: 7617-6609 (1996) (4)Catalona et al.:SILVINO 279: 7830-4260 (1997) (x)These estimates vary with age, ethnicity, [...] mind. PSA was performed using the Chucky Winona Immunoassay method. Values obtained from different assay methods cannot be used interchangeably. PSA levels, regardless of value, should not be interpreted as absolute evidence of the presence or absence of disease. Blood Blood / Unknown 01/11/2025 2 :38 PM EDT 01/11/2025 2:38 PM EDT Yojana Knight [facility] - BLOOD DRAW Edited Resu lt - Final [facility] [address] [place] [address], [facility] [address] [place] [phone] * VITAMIN B12 & FOLATE Routine (01/11/2025 2:38 PM EDT) VITAMIN B12 388 200 - 1,100 pg/mL [facility] Comment: Please Note: Although the reference range for vitamin B12 is 200-1100 pg/mL, it has been reported that between 5 and 10% of patients with values between 200 and 400 pg/mL may experience neuropsychiatric and hematologic abnormalities due to occult B12 deficiency; less than 1% of patients with values above 400 pg/mL will have symptoms. FOLATE, SERUM 12.6 5.5 ng/mL [facility] Comment: Reference Range Low: <3.4 Borderline: 3.4-5.4 Normal: >5.4 Blood Blood / Unknown 01/11/2025 2 :38 PM EDT 01/11/2025 2:38 PM EDT Yojana Eugene [facility] - BLOOD DRAW Edited Resu lt - Final [facility] [address] [address], [employer] [address] [place] [address] * (ABNORMAL) BLOOD COUNT COMPLETE AUTO&AUTO DIFRNTL WBC Routine (01/11/2025 2:38 PM EDT) Pathologist [facility] WHITE BLOOD CELL COUNT 5.3 3.8 - 10.8 Thousand/ uL [facility] RED BLOOD CELL COUNT 5.63 4.20 - 5.80 Million/u L [facility] HEMOGLOBIN 18.0(H) 13.2 - 17.1 g/dL [facility] HEMATOCRIT 52.8(H) 38.5 - 50.0 % [facility] MCV 93.8 80.0 - 100.0 fL [facility] MCH 32.0 27.0 - 33.0 pg [facility] MCHC 34.1 32.0 - 36.0 g/dL [facility] Comment: For adults, a slight decrease in the calculated MCHC value (in the range of 30 to 32 g/dL) is most likely not clinically significant; however, it should be interpreted with caution in correlation with other red cell parameters and the patient's clinical condition. RDW 13.4 11.0 - 15.0 % [facility] PLATELET COUNT 206 140 - 400 Thousand/ uL [facility] MPV 11.3 7.5 - 12.5 fL [facility] ABSOLUTE NEUTROPHILS 2,459 1,500 - 7,800 cells/uL [facility] ABSOLUTE LYMPHOCYTES 1,993 850 - 3,900 cells/uL [facility] ABSOLUTE MONOCYTES 726 200 - 950 cells/uL [facility] ABSOLUTE EOSINOPHILS 80 15 - 500 cells/uL [facility] ABSOLUTE BASOPHILS 42 0 - 200 cells/uL [facility] NEUTROPHILS PCT 46.4 % [facility] [employer] LYMPHOCYTES 37.6 % [facility] MONOCYTES 13.7 % [facility] EOSINOPHILS 1.5 % [facility] BASOPHILS 0.8 % [facility] [employer] [facility] Blood Blood / Unknown 01/11/2025 2 :38 PM EDT 01/11/2025 2:38 PM EDT us Yojana Knight [facility] - BLOOD DRAW Edited Resu lt - Final Performing Organization Address City/[facility]/ZIP Co de Phone Number [facility] [address] [address], [facility] [address] [address] * (ABNORMAL) HEMOGLOBIN GLYCOSYLATED A1C Routine (01/11/2025 2:38 PM EDT) HEMOGLOBIN A1C 7.6(H) <5.7 % [facility] Comment: For someone without known diabetes, a [...] :38 PM EDT 01/11/2025 2:38 PM EDT us Yojana Cantuigorian [facility] - BLOOD DRAW Edited Resu lt - Final Performing Organization Address [facility]/ZIP Co de Phone Number [facility] [address] [address], [facility] [address] [address] * LIPID PANEL Routine (01/11/2025 2:38 PM EDT) CHOLESTEROL, TOTAL 164 <200 mg/dL [facility] HDL CHOLESTEROL 59 > OR = 40 mg/dL [facility] TRIGLYCERIDES 135 <150 mg/dL [facility] LDL-CHOLESTEROL 82 99 mg/dL (calc) [facility] Comment: Reference range: <100 Desirable range <100 mg/dL for primary prevention; <70 mg/dL for patients with CHD or diabetic patients with > or = 2 CHD risk factors. LDL-C is now calculated using the Jaciel calculation, which is a validated novel method providing better accuracy than the Friedewald equation in the estimation of LDL-C. Isael SS et al. SILVINO. 2013;310(19): 6034-5984 (http://education.Virtugo Software/faq/TWS529) CHOL/HDLC RATIO 2.8 <5.0 (calc) [facility] NON-HDL CHOLESTEROL 105 <130 mg/dL (calc) [facility] Comment: For patients with diabetes plus 1 major ASCVD risk factor, treating to a non-HDL-C goal of <100 mg/dL (LDL-C of <70 mg/dL) is considered a therapeutic option. Blood Blood / Unknown 01/11/2025 2 :38 PM EDT 01/11/2025 2:38 PM EDT Yojana Knight [facility] - BLOOD DRAW Final Resul t [employer] [address] [address], [employer] [address] [address] * (ABNORMAL) COMPREHENSIVE METABOLIC PANEL Routine (01/11/2025 2:38 PM EDT) GLUCOSE 149(H) 65 - 99 mg/dL [facility] Comment: Fasting reference interval For someone without known diabetes, a glucose value >125 mg/dL indicates that they may have diabetes and this should be confirmed with a follow-up test. UREA NITROGEN (BUN) 16 7 - 25 mg/dL [facility] CREATININE (blood) 1.38(H) 0.70 - 1.28 mg/dL [facility] EGFR 53(L) > OR = 60 mL/min/1. 73m2 [facility] BUN/CREATININE RATIO 12 6 - 22 (calc) [facility] SODIUM 144 135 - 146 mmol/L [facility] POTASSIUM 4.6 3.5 - 5.3 mmol/L [facility] [place] [facility] CHLORIDE 106 98 - 110 mmol/L [facility] CARBON DIOXIDE 29 20 - 32 mmol/L [facility] CALCIUM 10.8(H) 8.6 - 10.3 mg/dL [facility] PROTEIN, TOTAL 7.4 6.1 - 8.1 g/dL [facility] ALBUMIN 5.0 3.6 - 5.1 g/dL [facility] [place] [facility] GLOBULIN 2.4 1.9 - 3.7 g/dL (calc) [facility] ALBUMIN/GLOBULI N RATIO 2.1 1.0 - 2.5 (calc) [facility] BILIRUBIN, TOTAL 0.7 0.2 - 1.2 mg/dL [facility] ALKALINE PHOSPHATASE 48 35 - 144 U/L [facility] AST 21 10 - 35 U/L [facility] ALT 38 9 - 46 U/L [facility] Blood Blood / Unknown 01/11/2025 2 :38 PM EDT 01/11/2025 2:38 PM EDT Y[facility]ana ATKINS LAB - BLOOD DRAW Edited Resu lt - Final [facility] [address] [address], [facility] [address] [address] * REFERRAL TO OPTHALMOLOGY (01/11/2025 3:00 AM EDT) 01/11/2025 3:00 AM EDT Yojana ATKINS REFERRAL Final Result from Last 3 Months Insurance [facility] Care Teams Sail Cutter Relationship Specialty Start Date End Date Yojana Knight FNP [address] [place] [address] PCP - General Family Medicine, MARINE SURVEYOR 01/21/25
--- OUTSIDE RECORDS SUMMARY | 2025-03-23 11:04 | XMS_ITS | Clinical Summary ---
Author Organization [address] [facility] Address [address] [place] [address] Phone Care Team Providers Care Guest Services Agent Name Role Phone Yojana Knight MILLY Primary Care Provider [phone] Allergies No known active allergies Medications carvediloL [...] Department Care Team Description 01/14/2025 Telephone Gastroenterology [facility] 175 [facility] [address] [phone] Jesika White NP 01/14/2025 Telephone Gastroenterology - [place] 175 [facility] [address] [phone] Irene Cavazos MD special procedure [...] Info) Description 04/22/2025 8:[address] [facility] [address] [place] [phone] Juan Sánchez MD [address] [address] Health Maintenance Due Date Last Done Comments DTaP,Tdap,and Td Vaccines (1 - Tdap) 1969 Pneumococcal Vaccine: 50+ Ye ars (1 of 1 - PCV) 11/04/1999 Zoster Vaccines (1 of 2) 11/04/1999 COVID-19 Vaccine ( - 2023-2 5 season) 2024 Depression Screening 08/26/2024 RSV Immunization Adult Patie nts (1 - 1-dose 75+ series) 2024 Cholesterol Screening (Lipid Panel) 01/15/2025 Colorectal Cancer Screening: Colonoscopy 01/15/2025 Falls Risk Assessment 01/15/2025 Hepatitis C Screening 01/15/2025 Social Influencers of Health Screening 01/15/2025 Influenza Vaccine (#1) 2025 HIB Vaccines Aged Out No longer eligi [...] patient's age to complete this topic Insurance [facility] [place] [id number] Care Teams Guest Services Agent Relationship Specialty Start Date End Date Yojana Knight FNP [address] [place] [address] PCP - General Family Medicine 01/14/25
--- OUTSIDE RECORDS SUMMARY | 2025-03-23 11:04 | XMS_ITS | Data Portability ---
Author Organization [facility] Address [address] [place] [address] Care Team Providers Care Senior Engineering Manager Name Role Phone EZIO DONALDSON Primary Care Provider JIMBO CLAROS Referring Provider [phone] Assessment Encounter Date Assessment Date Assessment LastModified [...] Last Modified Time Details Appointments PROCEDURE 2024 10:30A M Partha schmidt MD Not available Not available Not available Lab None recorded. Referral None recorded. Procedures None recorded. Surgeries None recorded. Imaging None recorded. Medication Orders None recorded. Patient TargetsNo targets recorded. Patient Instructions Encounter Date Encounter Id Patient Instructions Last Modified By Organization Details Last Modified Time 03/24/2024 [id number] He was advised against bed rest lasting longer than four days and to continue activities as tolerated. [email or web address] Not available 03/24/2024 11:30:26 06/26/2024 [id number] He was advised against bed rest lasting longer than four days and to continue activities as tolerated. [email or web address] Not available 06/26/2024 11:25:03 07/15/2024 [id number] He was advised against bed rest lasting longer than four days and to continue activities as tolerated. [email or web address] Not available 07/15/2024 08:57:20 10/16/2024 [id number] He was advised against bed rest lasting longer than four days and to continue activities as tolerated. [email or web address] Not available 10/16/2024 10:30:19 12/01/2024 [id number] He was advised against bed rest lasting longer than four days and to continue activities as tolerated. [email or web address] Not available 12/01/2024 09:40:09 Reason for Referral None Reported. Problems Name Problem SNOMED Code Status Onset Date Resolution Date Notes Provider Name and Address Organization Details Recorded Time Spondylosis without myelopathy [id number] Justin schmidt MD [address], [place], [address], [place] [facility] 13:41:20 Muscle pain 47306477 Justin schmidt MD [address] , [address], [place], [address], [place] [facility] 6 13:41:20 Spinal stenosis of lumbar region 60840889 Justin schmidt MD [address] , [address], [place], [address], [place] [facility] 6 13:41:20 Lumbosacral radiculitis 94068362 Active Partha schmidt MD [address] , [address], [place], [address], [place] [facility] 6 13:41:20 Pseudoclaud ication syndrome Completed 06/24/2013 Partha schmidt MD [address] , [address], [place], [address], [place] [facility] 6 13:37:56 Diabetes mellitus 36013363 Justin schmidt MD [address] , [address], [place], [address], [place] [facility] 6 13:41:20 Shoulder joint pain 659423811 Justin schmidt MD [address] , [address], [place], [address], [place] [facility] 6 13:41:20 Degeneratio n of interverteb ral disc 51437939 Active Partha schmidt MD [address] , [address], [place], [address], [place] [facility] 13:41:20 Problem Notes None recorded. Procedures Surgical History Date Name Laterality Status Provider Name and Address Organization Details Recorded Time 12/02/19 25 Lumbar Epidural steroid injection under fluoroscopic guidance completed Partha Mike MD [address] , [address], [place], [address], [place] [facility] 12/01/2024 09:40:48 07/15/20 24 Lumbar Epidural steroid injection under fluoroscopic guidance completed Partha Mike MD [address] , [address], [place], [address], [place] [facility] 07/15/2024 08:57:51 03/24/20 24 Lumbar Epidural steroid injection under fluoroscopic guidance completed Partha Mike MD [address] , [address], [place], [address], [place] [facility] 03/24/2024 11:30:56 12/04/19 24 Lumbar Epidural steroid injection under fluoroscopic guidance completed Partha Mike MD [address] , [address], [place], [address], [place] [facility] 12/04/2023 13:40:41 06/12/20 23 Lumbar Epidural steroid injection under fluoroscopic guidance completed Partha Mike MD [address] , [address], [place], [address], [place] [facility] 06/12/2023 15:01:20 01/09/20 23 Lumbar Epidural steroid injection under fluoroscopic guidance completed Partha Mike MD [address] , [address], [place], [address], [place] [facility] 01/08/2023 15:00:42 10/23/19 23 Lumbar Epidural steroid injection under fluoroscopic guidance completed Partha Mike MD [address] , [address], [place], [address], [place] [facility] 10/23/2022 15:03:01 07/31/20 22 Lumbar Epidural steroid injection under fluoroscopic guidance completed Partha Mike MD [address] , [address], [place], [address], [place] [facility] 07/31/2022 13:25:34 04/25/20 22 Lumbar Epidural steroid injection under fluoroscopic guidance completed Partha Mike MD [address] , [address], [place], [address], [place] [facility] 04/25/2022 10:35:19 01/03/20 22 Lumbar Epidural steroid injection under fluoroscopic guidance completed Partha Mike MD [address] , [address], [place], [address], [place] [facility] 01/02/2022 16:29:21 10/04/19 22 Sacroiliac Joint Steroid Injections, using Fluoroscopy completed Partha Mike MD [address] , [address], [place], [address], [place] [facility] 10/04/2021 10:59:56 07/25/20 21 Lumbar Epidural steroid injection under fluoroscopic guidance completed Partha Mike MD [address] , [address], [place], [address], [place] [facility] 07/25/2021 10:59:40 04/18/20 21 Lumbar Epidural steroid injection under fluoroscopic guidance completed Partha Mike MD [address] , [address], [place], [address], [place] [facility] 04/18/2021 10:57:10 01/04/20 21 Lumbar Epidural steroid injection under fluoroscopic guidance completed Partha Mike MD [address] , [address], [place], [address], [place] [facility] 01/03/2021 15:21:58 10/04/19 21 Lumbar Epidural steroid injection under fluoroscopic guidance completed Partha Mike MD [address] , [address], [place], [address], [place] [facility] 10/05/2020 14:16:42 07/12/20 20 Lumbar Epidural steroid injection under fluoroscopic guidance completed Partha Mike MD [address] , [address], [place], [address], [place] [facility] 07/12/2020 15:12:10 04/19/20 20 Lumbar Epidural steroid injection under fluoroscopic guidance completed Partha Mike MD [address] , [address], [place], [address], [place] [facility] 04/19/2020 11:32:47 01/12/20 20 Lumbar Epidural steroid injection under fluoroscopic guidance completed Partha Mike MD [address] , [address], [place], [address], [place] [facility] 01/14/2020 09:58:10 09/01/19 20 Lumbar Epidural steroid injection under fluoroscopic guidance completed Partha Mike MD [address] , [address], [place], [address], [place] [facility] 09/08/2019 09:56:16 06/03/20 19 Lumbar Epidural steroid injection under fluoroscopic guidance completed Partha Mike MD [address] , [address], [place], [address], [place] [facility] 06/05/2019 15:43:58 03/10/20 19 Lumbar Epidural steroid injection under fluoroscopic guidance completed Partha Mike MD [address] , [address], [place], [address], [place] [facility] 03/11/2019 13:37:47 12/10/19 19 Lumbar Epidural steroid injection under fluoroscopic guidance completed Partha Mike MD [address] , [address], [place], [address], [place] [facility] 12/10/2018 10:47:26 05/28/20 18 Lumbar Epidural steroid injection under fluoroscopic guidance completed Partha Mike MD [address] , [address], [place], [address], [place] [facility] 05/28/2018 14:21:58 01/09/20 18 Lumbar Epidural steroid injection under fluoroscopic guidance completed Partha Mike MD [address] , [address], [place], [address], [place] [facility] 01/09/2018 14:13:45 06/11/20 17 Radiofrequency of Lumbar/Sacral medial branches supplying the facets under fluoroscopic guidance completed Partha Mike MD [address] , [address], [place], [address], [place] [facility] 06/14/2017 14:37:54 04/23/20 17 Fluoroscopic Guided Lumbar Facet Steroid Injections of levels completed Partha Mike MD [address] , [address], [place], [address], [place] [facility] 04/24/2017 10:38:56 02/20/20 17 Fluoroscopic Guided Lumbar Facet Steroid Injections of levels completed Partha Mike MD [address] , [address], [place], [address], [place] [facility] 02/19/2017 15:04:05 11/09/19 17 Fluoroscopic Guided Lumbar Facet Steroid Injections of levels completed Partha Mike MD [address] , [address], [place], [address], [place] [facility] 11/08/2016 11:54:16 07/04/20 16 Lumbar Epidural steroid injection under fluoroscopic guidance completed Partha Mike MD [address] , [address], [place], [address], [place] [facility] 07/09/2016 14:02:15 05/22/20 16 Radiofrequency of Lumbar/Sacral medial branches supplying the facets under fluoroscopic guidance completed Partha Mike MD [address] , [address], [place], [address], [place] [facility] 05/31/2016 12:13:20 04/03/20 16 Fluoroscopic Guided Lumbar Facet Steroid Injections of levels completed Partha Mike MD [address] , [address], [place], [address], [place] [facility] 04/03/2016 13:41:21 03/06/20 16 Fluoroscopic Guided Lumbar Facet Steroid Injections of levels completed Partha Mike MD [address] , [address], [place], [address], [place] [facility] 03/08/2016 13:50:00 11/10/19 16 Trigger Point Injections under ultrasound guidance completed Partha Mike MD [address] , [address], [place], [address], [place] [facility] 11/10/2015 14:02:24 10/26/19 16 Fluoroscopic Guided Lumbar Facet Steroid Injections of levels completed Partha Mike MD [address] , [address], [place], [address], [place] [facility] 10/26/2015 09:40:25 09/28/19 16 Fluoroscopic Guided Lumbar Facet Steroid Injections of levels completed Partha Mike MD [address] , [address], [place], [address], [place] [facility] 09/28/2015 13:48:43 03/14/20 15 Lumbar Epidural steroid injection under fluoroscopic guidance completed Partha Mike MD [address] , [address], [place], [address], [place] [facility] 03/14/2015 14:26:28 11/23/19 15 Lumbar Epidural steroid injection under fluoroscopic guidance completed Partha Mike MD [address] , [address], [place], [address], [place] [facility] 11/23/2014 14:50:01 06/14/20 14 Lumbar Epidural steroid injection under fluoroscopic guidance completed Partha Mike MD [address] , [address], [place], [address], [place] [facility] 06/14/2014 11:20:52 03/01/20 14 Lumbar Epidural steroid injection under fluoroscopic guidance completed Partha Mike MD [address] , [address], [place], [address], [place] [facility] 03/02/2014 14:36:10 12/09/19 14 Intra-articular shoulder steroid injection under ultrasound guidance completed Partha Mike MD [address] , [address], [place], [address], [place] [facility] 12/08/2013 18:00:06 09/21/19 14 Lumbar Epidural steroid injection under fluoroscopic guidance completed Partha Miek MD [address] , [address], [place], [address], [place] [facility] 09/22/2013 08:45:16 06/23/20 13 Lumbar Epidural steroid injection under fluoroscopic guidance completed Partha Mike MD [address] , [address], [place], [address], [place] [facility] 06/24/2013 09:47:40 02/03/20 13 Lumbar Epidural steroid injection under fluoroscopic guidance completed Partha Mike MD [address] [facility] , [address], [place], [address], [place] [facility] 02/03/2013 15:20:43 11/11/19 13 Lumbar Epidural steroid injection under fluoroscopic guidance completed Partha Mike MD [address] [facility] , [address], [place], [address], [place] [facility] 11/10/2012 13:43:13 08/11/20 12 Lumbar Epidural steroid injection under fluoroscopic guidance completed Partha Mike MD [address] [facility] , [address], [place], [address], [place] [facility] 08/12/2012 09:13:07 11/26/19 12 Lumbar Epidural steroid injection under fluoroscopic guidance completed Partha Mike MD [address] , [address], [place], [address], [place] [facility] 11/27/2011 10:25:45 10/16/19 12 Lumbar Epidural steroid injection under fluoroscopic guidance completed Partha Mike MD [address] , [address], [place], [address], [place] [facility] 10/17/2011 [...] Available Not Available meloxicam 15 mg tablet TAKE 1 TABLET BY MOUTH [...] active Not Available Not Available Not Available Murine Ear 6.5 % drops PLACE 10 DROPS INTO BOTH EARS 2 (TWO) TIMES DAILY. active Not Available Not Available No t Available naproxen 500 mg tablet active Not [...] ORDERS IN THE SYSTEM. PLEASE GOTO [facility] active Not Available Not Available No t Available GaviLyte-G 236 gram-22.74 gram-6.74 gram-5.86 gram oral solution PLEASE SEE ATTACHED FOR DETAILED DIRECTIO NS active Not Available Not Available No t Available OneTouch Delica Lancets 33 gauge active Not Available Not Available Not Available testostero ne 20.25 mg/1.25 gram per pump act.(1.62 %) transderma l gel APPLY 2 PUMPS OVER MAX AREA - ALTERNAT E SHOULDER S ON ALTERNAT E DAYS active Not Available Not Available No t Available Accu-Chek FastClix Lancing Device active Not Available Not Available Not Available Ilevro 0.3 % eye drops,susp ension INSTIL 1 DROP DAILY TO SURGIVAL EYE. START 2 DAYS PRIOR TO SURGERY. TAPER DIRECETD 05/04 completed Not Available Not Available Not Available Fluvirin 2960-1689 45 mcg (15 mcg x 3)/0.5 mL intramuscu lar suspension INJECT 0.5 ML INTRAMUS CULARLY DIRECTED . active Not Available Not Available No t Available Jardiance 10 mg tablet TAKE 1 TABLET BY MOUTH EVERY DAY IN THE MORNING 06/26 completed Not Available Not Available Not Available Jardiance 25 mg tablet TAKE 1 TABLET BY MOUTH DAILY IN AM,X90 DAYS active Not Available Not Available No [...] Not Available No t Available Fluzone High-Dose 0704-2970 (PF) 180 mcg/0.5 mL intramuscu lar syringe [...] 97 % 97 % 9 40.3 kg/m2 983539. 72 g 136/85 mm[Hg] Partha schmidt MD [facility] , [address], [place], [address], [place] [facility] 5 09:46:02 Date Recorded Body height Heart rate Oxygen saturation Oxygen saturation in Arterial blood by Pulse oximetry Systolic And Diastolic Provider Name and Address Organization Details Last Updated DateTime 5 175.26 cm 76 /min 99 % 99 % 154/78 mm[Hg] Griselda Tena [place] [facility] 5 09:14:36 Date Recorded Body height Heart rate Oxygen saturation Oxygen saturation in Arterial blood by Pulse oximetry Systolic And Diastolic Provider Name and Address Organization Details Last Updated DateTime 4 175.26 cm 78 /min 97 % 97 % 144/72 mm[Hg] Griselda Tena [place] [facility] 4 11:07:36 Date Recorded Body height Heart rate Oxygen saturation Oxygen saturation in Arterial blood by Pulse oximetry Pain severity - 0-10 verbal numeric rating [Score] - Reported Body mass index (BMI) Body weight Systolic And Diastolic Provider Name and Address Organization Details Last Updated DateTime 4 175.26 cm 80 /min 97 % 97 % 10 41.3 kg/m2 377887. 86 g 166/84 mm[Hg] Partha schmidt MD [address] , [address], [facility] [place], [address], [place] [facility] 4 11:12:56 Date Recorded Body height Pain severity - 0-10 verbal numeric rating [Score] - Reported Heart rate Oxygen saturation Oxygen saturation in Arterial blood by Pulse oximetry Systolic And Diastolic Provider Name and Address Organization Details Last Updated DateTime 4 175.26 cm 7 71 /min 97 % 97 % 121/63 mm[Hg] Khadra Hughes [place] [facility] 4 08:35:52 Social History Question Answer Notes LastModified by Kaesu Details LastModified Time Tobacco Smoking Status Former Smoker Quit > 20 years Not Available [facility] 06/10/2020 03:16:11 Which Illicit Or Recreational Drugs Have You Used? No [id number] Information not available 06/10/2020 Education 10 Vocational Training Information not available 10/04/2011 Live Alone Or With Others? With Others Information not available 10/04/2011 Marital Status Informatio n not available 10/04/2011 What Was The Date Of Your Most Recent Tobacco Screening? 03/11/2019 [id number] Information not available 06/10/2020 Sex: Unknown Functional Status Question Answer Note LastModified by Buzzooleat Sendori Details LastModified Time What is your level of alcohol consumption? Occasional [id number] Information not available 06/10/2020 Are you currently employed? 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 Family History Relationship [...] PVD (previ ously record ed as Other) oliverio Not available 04/03/2016 13:38:11 Medical History Condition Response High Cholesterol Y Diabetes Y GERD/Reflux Y Hypertension Y Past Encounters Encounter ID Performer Location Encounter Start Date Encounter Closed Date Diagnosis/Indication Diagnosis SNOMED-CT Code Diagnosis ICD10 Code Diagnosis Note [id number] Partha Mike MD PA[facility] [address] [place] [address] 10/04/2011 08:43:25 10/04/2011 15:11:17 [id number] Partha Mike MD PAIN OFFICE [address] [place] [address] 10/16/2011 13:03:10 10/16/2011 15:55:21 [id number] Partha Mike MD PAIN OFFICE [address] [place] [address] 11/14/2011 08:53:08 11/14/2011 16:02:29 [id number] Partha Mike MD PAIN OFFICE [address] [place] [address] 11/26/2011 13:47:13 11/27/2011 09:25:30 [id number] Partha Mike MD PAIN OFFICE [address] [place] [address] 01/10/2012 12:59:24 01/10/2012 15:51:49 [id number] Partha Mike MD PAIN OFFICE [address] [place] [address] 07/29/2012 09:56:41 07/29/2012 15:35:09 [id number] Partha Mike MD PAIN OFFICE [address] [place] [address] 08/11/2012 13:15:02 08/11/2012 15:26:03 [id number] Partha Mike MD PAIN OFFICE [address] [place] [address] 09/23/2012 13:36:52 09/23/2012 15:52:57 [id number] Partha Mike MD [facility] [address] [place] [address] 11/10/2012 10:02:01 11/10/2012 15:08:49 [id number] Partha Mike MD [facility] [address] [place] [address] 01/15/2013 09:03:50 01/15/2013 09:44:06 [id number] Partha Mike MD [facility] [address] [place] [address] 02/02/2013 12:53:42 02/02/2013 15:44:04 [id number] Partha Mike MD PAIN OFFICE [address] [place] [address] 03/31/2013 09:50:54 03/31/2013 15:57:47 [id number] Partha Mike MD PAIN OFFICE [address] [place] [address] 06/23/2013 13:47:03 06/23/2013 15:44:00 Diabetes mellitus 27841748 Spinal deepika nosis of lumbar region 46472181 Lumbosacra l radiculitis 93357270 [id number] Partha Mike MD PAIN OFFICE [address] [place] [address] 09/21/2013 09:40:53 09/21/2013 16:06:00 Spinal stenosis of lumbar region 09912565 Diabetes mellitus 47996962 Lumbosacra l radiculitis 10862776 [id number] Partha Mike MD [facility] [address] [place] [address] 11/10/2013 09:59:56 11/13/2013 09:32:38 Diabetes mellitus 31789103 Lumbosacra l radiculitis 56270579 Spinal deepika nosis of lumbar region 95611811 Pseudoclau dication syndrome 84753657 [id number] Partha Mike MD PAIN OFFICE [address] [place] [address] 12/08/2013 14:43:41 12/08/2013 18:01:06 Spinal stenosis of lumbar region 11974641 Diabetes mellitus 32355482 Lumbosacra l radiculitis 93830294 Shoulder joint pain 170481136 [id number] Partha Mike MD [facility] [address] [facility] [place] [address] 12/16/2013 10:48:12 12/16/2013 14:53:27 Shoulder joint pain 910915028 Degenerati on of intervertebral disc 76533421 Spinal deepika nosis of lumbar region 94705096 Diabetes mellitus 00211139 Lumbosacra l radiculitis 67431248 [id number] Partha Mike MD [facility] [address] [facility] [place] [address] 02/02/2014 09:34:56 02/02/2014 10:18:41 Spinal stenosis of lumbar region 59259801 Degenerati on of intervertebral disc 22628568 Lumbosacra l radiculitis 39126275 Pseudoclau dication syndrome 66289449 [id number] Partha Mike MD PAIN [facility] [address] [facility] [place] [address] 03/01/2014 11:09:53 03/02/2014 14:37:45 Spinal stenosis of lumbar region 11850796 Degenerati on of intervertebral disc 61317173 Diabetes mellitus 66209065 Lumbosacra l radiculitis 25552424 Shoulder joint pain 121253662 [id number] Partha Mike MD [facility] [address] [facility] [place] [address] 05/26/2014 09:28:16 05/26/2014 10:59:20 Spinal stenosis of lumbar region 91441358 Degenerati on of intervertebral disc 89660626 Diabetes mellitus 18741142 Lumbosacra l radiculitis 78737795 Shoulder joint pain 983706813 [id number] Partha Mike MD PAIN OFFICE [address] [facility] [place] [address] 06/14/2014 10:27:48 06/14/2014 11:25:21 Spinal stenosis of lumbar region 65425659 Degenerati on of intervertebral disc 41034374 Diabetes mellitus 99846158 Lumbosacra l radiculitis 24957562 Shoulder joint pain 236910445 [id number] Partha Mike MD [facility] [address] [place] [address] 07/01/2014 13:08:47 07/02/2014 11:31:47 Spinal stenosis of lumbar region 59136556 Degenerati on of intervertebral disc 71221274 Diabetes mellitus 79550931 Lumbosacra l radiculitis 90122079 [id number] Partha Mike MD [facility] [address] [place] [address] 07/15/2014 14:20:26 07/18/2014 10:47:48 Spinal stenosis of lumbar region 68236573 Degenerati on of intervertebral disc 86121569 Diabetes mellitus 27777074 Lumbosacra l radiculitis 34590286 Shoulder joint pain 775478420 [id number] Partha Mike MD PAIN OFFICE [address] [place] [address] 11/22/2014 11:25:34 11/23/2014 14:51:48 Spinal stenosis of lumbar region 65339790 Degenerati on of intervertebral disc 83450835 Diabetes mellitus 53872385 Lumbosacra l radiculitis 59798212 Shoulder joint pain 813020981 [id number] Partha Mike MD [facility] [address] [place] [address] 02/23/2015 11:44:55 02/28/2015 11:49:49 Spinal stenosis of lumbar region 89509881 Degenerati on of intervertebral disc 33802169 Diabetes mellitus 60159302 Lumbosacra l radiculitis 62992565 Shoulder joint pain 627178156 [id number] Partha Mike MD [facility] [address] [place] [address] 03/14/2015 09:26:00 03/14/2015 14:28:25 Spinal stenosis of lumbar region 45137135 Degenerati on of intervertebral disc 74542196 Diabetes mellitus 48767826 Lumbosacra l radiculitis 77481912 Shoulder joint pain 887283991 [id number] Partha Mike MD PAIN OFFICE [address] [place] [address] 09/21/2015 08:46:34 09/21/2015 10:05:28 Spinal stenosis of lumbar region 64014398 M48.06 Degenerati on of intervertebral disc 56449199 M51.9 Diabetes mellitus 184870 09 E11.9 Lumbosacra l radiculitis 11464108 M54.17 Shoulder joint pain 2679 28424 M25.519 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 82410672 M47.816 [id number] Partha Mike MD PAIN OFFICE [address] [place] [address] 09/28/2015 10:28:09 09/28/2015 13:50:48 Spinal stenosis of lumbar region 56286926 M48.06 Degenerati on of intervertebral disc 85751445 M51.17 M51.9 Diabetes mellitus 060582 09 E11.9 Lumbosacra l radiculitis 71611577 M54.17 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 86296284 M47.816 Shoulder joint pain 2679 35192 M25.511 M25.519 [address] Partah Mike MD PAIN OFFICE [address] [place] [address] 10/25/2015 11:19:24 10/26/2015 08:58:26 Spinal stenosis of lumbar region 30513240 M48.06 Degenerati on of intervertebral disc 67350023 M51.17 M51.9 Diabetes mellitus 913311 09 E11.9 Lumbosacra l radiculitis 25085814 M54.17 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 33774982 M47.816 Shoulder joint pain 2679 89061 M25.511 M25.519 05920 Partha Mike MD PAIN OFFICE [address] [place] [address] 10/26/2015 08:59:15 10/26/2015 11:09:06 Spondylosis without myelopathy 08556540 M47.816 Spinal deepika nosis of lumbar region 31782272 M48.06 Degenerati on of intervertebral disc 54085020 M51.17 M51.9 Diabetes mellitus 388402 09 E11.9 Lumbosacra l radiculitis 90088969 M54.17 Shoulder joint pain 2679 74062 M25.519 05841 Partha Mike MD SV PAIN OFFICE [address] [place] [address] 11/04/2015 09:01:41 11/04/2015 10:57:41 Spondylosis without myelopathy 66289959 M47.816 Spinal deepika nosis of lumbar region 83015079 M48.06 Degenerati on of intervertebral disc 63887582 M51.17 M51.9 Diabetes mellitus 386852 09 E11.9 Lumbosacra l radiculitis 38795295 M54.17 Shoulder joint pain 2679 27520 M25.511 Muscle pain 58018141 M79 .1 33271 Partha Mike MD PAIN OFFICE [address] [facility] [address] [facility] [address] [place] [address] 11/10/2015 09:34:55 11/10/2015 14:03:07 Muscle pain 06713055 M79.1 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 27225503 M47.816 Degenerati on of intervertebral disc 67416637 M51.17 M51.9 Spinal deepika nosis of lumbar region 61189502 M48.06 Diabetes mellitus 737425 09 E11.9 Lumbosacra l radiculitis 51373790 M54.17 Shoulder joint pain 2679 02139 M25.511 60567 Partha Mike MD PAIN OFFICE [address] [facility] [address] [place] [address] 11/30/2015 13:31:23 11/30/2015 14:19:05 Muscle pain 63728110 M79.1 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 42567799 M47.816 Spinal deepika nosis of lumbar region 40624709 M48.06 Lumbosacra l radiculitis 33909015 M54.17 Degenerati on of intervertebral disc 68632218 M51.17 M51.9 Diabetes mellitus 650557 09 E11.9 Shoulder joint pain 2679 10923 M25.511 06052 Partha Mike MD PAIN OFFICE [address] [place] [address] 02/10/2016 09:04:14 02/10/2016 10:56:58 Spinal stenosis of lumbar region 40047116 M48.06 Degenerati on of intervertebral disc 39224493 M51.17 M51.9 Muscle pain 17312493 M79 .1 Diabetes mellitus 432202 09 E11.9 Lumbosacra l radiculitis 13612023 M54.17 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 02942921 M47.816 Shoulder joint pain 2679 27917 M25.511 M25.519 91215 Partha Mike MD PAIN OFFICE [address] [place] [address] 03/02/2016 08:42:55 03/04/2016 08:55:28 Spinal stenosis of lumbar region 22048647 M48.06 Degenerati on of intervertebral disc 73687294 M51.17 M51.9 Muscle pain 12818665 M79 .1 Diabetes mellitus 479374 09 E11.9 Lumbosacra l radiculitis 52936408 M54.17 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 03713430 M47.816 Shoulder joint pain 2679 30019 M25.511 M25.519 73706 Partha Mike MD PAIN OFFICE [address] [place] [address] 03/06/2016 14:22:25 03/08/2016 13:51:55 Spondylosis without myelopathy 87848092 M47.816 Spinal deepika nosis of lumbar region 63256704 M48.06 Degenerati on of intervertebral disc 87263166 M51.17 M51.9 Muscle pain 70565801 M79 .1 Diabetes mellitus 944611 09 E11.9 Lumbosacra l radiculitis 21651466 M54.17 Shoulder joint pain 2679 59758 M25.511 M25.519 39191 Partha Mike MD SV PAIN OFFICE [address] [place] [address] 04/03/2016 09:43:41 04/03/2016 13:44:34 Spondylosis without myelopathy 67535904 M47.816 Degenerati on of intervertebral disc 18583072 M51.17 M51.9 Spinal deepika nosis of lumbar region 15508846 M48.06 Muscle pain 06775037 M79 .1 Diabetes mellitus 364933 09 E11.9 Lumbosacra l radiculitis 24876577 M54.17 Shoulder joint pain 2679 65151 M25.511 M25.519 25869 Partha Mike MD PAIN OFFICE [address] [place] [address] 05/04/2016 11:06:28 05/04/2016 15:53:59 Spondylosis without myelopathy 40729313 M47.816 Spinal deepika nosis of lumbar region 48345003 M48.06 Degenerati on of intervertebral disc 07720434 M51.17 M51.9 Muscle pain 86484835 M79 .1 Diabetes mellitus 276015 09 E11.9 Lumbosacra l radiculitis 26932999 M54.17 Shoulder joint pain 2679 02497 M25.511 M25.519 37477 Partha Mike MD PAIN OFFICE [address] [place] [address] 05/22/2016 14:45:55 05/31/2016 13:21:25 Spondylosis without myelopathy 52869640 M47.816 Spinal deepika nosis of lumbar region 15517286 M48.06 Degenerati on of intervertebral disc 00248138 M51.17 M51.9 Muscle pain 04843091 M79 .1 Diabetes mellitus 020780 09 E11.9 Lumbosacra l radiculitis 39933761 M54.17 Shoulder joint pain 2679 18067 M25.511 M25.519 75612 Partha Mike MD PAIN OFFICE [address] [place] [address] 06/18/2016 13:20:37 06/18/2016 20:15:12 Spinal stenosis of lumbar region 44179232 M48.06 Degenerati on of intervertebral disc 52671878 M51.17 M51.9 Diabetes mellitus 238401 09 E11.9 Lumbosacra l radiculitis 89593170 M54.17 Shoulder joint pain 2679 71629 M25.511 M25.519 28757 Partha Mike MD PAIN OFFICE [address] [facility] [address] [place] [address] 07/04/2016 10:32:34 07/08/2016 10:58:02 Spinal stenosis of lumbar region 31741263 M48.06 Degenerati on of intervertebral disc 37324672 M51.17 M51.9 Diabetes mellitus 687102 09 E11.9 Lumbosacra l radiculitis 90414852 M54.17 Shoulder joint pain 2679 72840 M25.511 M25.519 93408 Partha Mike MD PAIN OFFICE [address] [place] [address] 10/15/2016 11:19:51 10/28/2016 19:56:56 Shoulder joint pain 309385838 M25.511 M25.512 Diabetes mellitus 921228 09 E11.9 Muscle pain 43330661 M79 .1 54162 Partha Mike MD PAIN OFFICE [address] [facility] [address] [facility] [address] [place] [address] 11/01/2016 09:40:43 11/01/2016 11:47:54 Spinal stenosis of lumbar region 82661493 M48.06 Degenerati on of intervertebral disc 29474461 M51.17 M51.9 Diabetes mellitus 408379 09 E11.9 Lumbosacra l radiculitis 86497708 M54.17 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 12829017 M47.816 Shoulder joint pain 2679 10958 M25.511 M25.519 04533 Partha Mike MD PAIN OFFICE [address] [facility] [address] [facility] [address] [place] [address] 11/08/2016 10:31:25 11/08/2016 12:00:00 Spinal stenosis of lumbar region 63809410 M48.06 Degenerati on of intervertebral disc 19880370 M51.17 M51.9 Diabetes mellitus 777024 09 E11.9 Lumbosacra l radiculitis 77209951 M54.17 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 71124527 M47.816 Shoulder joint pain 2679 00316 M25.511 M25.519 61293 Partha Mike MD SV PAIN OFFICE [address] [facility] [address] [place] [address] 12/10/2016 13:05:58 12/14/2016 09:38:18 Spinal stenosis of lumbar region 98976483 M48.06 Degenerati on of intervertebral disc 56912205 M51.17 M51.9 Diabetes mellitus 230595 09 E11.9 Lumbosacra l radiculitis 86205962 M54.17 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 29922103 M47.816 Shoulder joint pain 2679 42544 M25.511 M25.519 89007 Partha Mike MD PAIN OFFICE [address] [place] [address] 01/28/2017 13:25:41 01/31/2017 16:32:23 Spinal stenosis of lumbar region 77816621 M48.06 Degenerati on of intervertebral disc 09409056 M51.17 M51.9 Diabetes mellitus 074461 09 E11.9 Lumbosacra l radiculitis 84263813 M54.17 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 00484185 M47.816 Shoulder joint pain 2679 18079 M25.511 M25.519 33294 Partha Mike MD SV PAIN OFFICE [address] [place] [address] 02/19/2017 08:59:03 02/19/2017 16:04:37 Spinal stenosis of lumbar region 29279295 M48.06 Degenerati on of intervertebral disc 25889399 M51.17 M51.9 Diabetes mellitus 437172 09 E11.9 Lumbosacra l radiculitis 79816471 M54.17 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 41117560 M47.816 Shoulder joint pain 2679 59802 M25.511 M25.519 30182 Partha Mike MD SV PAIN OFFICE [address] [facility] [address] [facility] [address] [place] [address] 04/03/2017 08:29:28 04/05/2017 11:42:54 Spinal stenosis of lumbar region 44371074 M48.06 Degenerati on of intervertebral disc 53879163 M51.17 M51.9 Muscle pain 88870433 M79 .1 Diabetes mellitus 545446 09 E11.9 Lumbosacra l radiculitis 49602044 M54.17 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 48699688 M47.816 Shoulder joint pain 2679 64472 M25.511 M25.519 14965 Partha Mike MD PAIN OFFICE [address] [place] [address] 04/23/2017 14:01:21 04/24/2017 11:10:29 Spondylosis without myelopathy 25004515 M47.816 Spinal deepika nosis of lumbar region 78862694 M48.06 Degenerati on of intervertebral disc 64651091 M51.17 M51.9 Muscle pain 37998948 M79 .1 Diabetes mellitus 056486 09 E11.9 Lumbosacra l radiculitis 23734886 M54.17 Shoulder joint pain 2679 10015 M25.511 M25.519 31266 Partha Mike MD PAIN OFFICE [address] [facility] [address] [facility] [address] [place] [address] 05/22/2017 14:27:24 06/03/2017 11:45:59 Spondylosis without myelopathy 37250247 M47.816 Spinal deepika nosis of lumbar region 86029189 M48.062 Degenerati on of intervertebral disc 43284636 M51.17 M51.9 Muscle pain 23839539 M79 .1 Diabetes mellitus 277589 09 E11.9 Lumbosacra l radiculitis 30698885 M54.17 Shoulder joint pain 2679 39760 M25.511 M25.519 30776 Partha Mike MD PAIN OFFICE [address] [place] [address] 06/11/2017 14:41:01 06/16/2017 15:47:44 Spondylosis without myelopathy 52002433 M47.816 Spinal deepika nosis of lumbar region 12654417 M48.062 Degenerati on of intervertebral disc 84526389 M51.17 M51.9 Muscle pain 86716190 M79 .1 Diabetes mellitus 536735 09 E11.9 Lumbosacra l radiculitis 10097709 M54.17 Shoulder joint pain 2679 95528 M25.511 M25.519 09474 Partha Mike MD PAIN OFFICE [address] [place] [address] 07/22/2017 10:58:27 07/24/2017 15:55:08 Lumbosacral radiculitis 36183234 M54.17 Spinal deepika nosis of lumbar region 05983707 M48.062 Degenerati on of intervertebral disc 00529376 M51.17 M51.9 Diabetes mellitus 224218 09 E11.9 33550 Partha Mike MD PAIN OFFICE [address] [place] [address] 08/02/2017 09:59:43 08/02/2017 11:37:37 Spondylosis without myelopathy 07347277 M47.816 Spinal deepika nosis of lumbar region 70622227 M48.062 Degenerati on of intervertebral disc 32183185 M51.17 M51.9 Muscle pain 10592557 M79 .1 Diabetes mellitus 946560 09 E11.9 Lumbosacra l radiculitis 61424429 M54.17 Shoulder joint pain 2679 04541 M25.511 M25.519 46410 Partha Mike MD PAIN OFFICE [address] [place] [address] 12/19/2017 14:28:38 12/19/2017 15:54:30 Spinal stenosis of lumbar region 77156106 M48.062 Degenerati on of intervertebral disc 93560636 M51.17 M51.9 Diabetes mellitus 383039 09 E11.9 Lumbosacra l radiculitis 30421545 M54.17 Shoulder joint pain 2679 43524 M25.511 M25.519 79408 Partha Mike MD SV PAIN OFFICE [address] [place] [address] 01/08/2018 11:03:45 01/09/2018 14:15:32 Spinal stenosis of lumbar region 11749188 M48.062 Degenerati on of intervertebral disc 38049029 M51.17 M51.9 Diabetes mellitus 573924 09 E11.9 Lumbosacra l radiculitis 12771866 M54.17 Shoulder joint pain 2679 56741 M25.511 M25.519 15364 Partha Mike MD PAIN OFFICE [address] [place] [address] 05/28/2018 09:58:40 05/28/2018 15:27:55 Spinal stenosis of lumbar region 35372165 M48.062 Degenerati on of intervertebral disc 87258122 M51.17 M51.9 Diabetes mellitus 961672 09 E11.9 Lumbosacra l radiculitis 63653793 M54.17 Shoulder joint pain 2679 31100 M25.511 M25.519 75230 Partha Mike MD PAIN OFFICE [address] [place] [address] 10/20/2018 11:37:41 10/20/2018 13:56:50 Spinal stenosis of lumbar region 97832114 M48.062 Degenerati on of intervertebral disc 28608581 M51.17 M51.9 Diabetes mellitus 598168 09 E11.9 Lumbosacra l radiculitis 15440300 M54.17 Shoulder joint pain 2679 46289 M25.511 M25.519 10271 Partha Mike MD SV PAIN OFFICE [address] [place] [address] 12/09/2018 09:04:43 12/10/2018 10:50:34 Spinal stenosis of lumbar region 79501187 M48.062 Degenerati on of intervertebral disc 03527124 M51.17 M51.9 Diabetes mellitus 134395 09 E11.9 Lumbosacra l radiculitis 54000764 M54.17 Shoulder joint pain 2679 42436 M25.511 M25.519 28275 Partha Mike MD PAIN OFFICE [address] [facility] [address] [place] [address] 03/10/2019 09:36:54 03/11/2019 13:42:01 Spinal stenosis of lumbar region 96501236 M48.062 Degenerati on of intervertebral disc 72119421 M51.17 M51.9 Diabetes mellitus 799917 09 E11.9 Lumbosacra l radiculitis 30001540 M54.17 Shoulder joint pain 2679 13199 M25.511 M25.519 Muscle pain 51982065 M79 .18 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 61221070 M47.816 73238 Partha Mike MD SV PAIN OFFICE [address] [place] [address] 06/03/2019 08:17:28 06/05/2019 15:46:22 Spinal stenosis of lumbar region 39353443 M48.062 Degenerati on of intervertebral disc 05120908 M51.17 M51.9 Diabetes mellitus 524789 09 E11.9 Lumbosacra l radiculitis 83999625 M54.17 Shoulder joint pain 2679 78310 M25.511 M25.519 Muscle pain 20463980 M79 .18 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 72515664 M47.816 26455 Partha Mike MD PAIN OFFICE [address] [facility] [address] [facility] [address] [place] [address] 09/01/2019 13:03:14 09/08/2019 10:49:39 Spinal stenosis of lumbar region 18463774 M48.062 Degenerati on of intervertebral disc 22520598 M51.17 M51.9 Diabetes mellitus 262709 09 E11.9 Lumbosacra l radiculitis 58112015 M54.17 Shoulder joint pain 2679 68760 M25.511 M25.519 Muscle pain 95770572 M79 .18 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 52246388 M47.816 18074 Partha Mike MD PAIN OFFICE [address] [facility] [address] [place] [address] 09/17/2019 10:01:22 09/18/2019 16:23:35 Shoulder joint pain 559974899 M25.511 M25.519 82911 Partha Mike MD PAIN OFFICE [address] [facility] [address] [place] [address] 12/28/2019 11:05:53 01/12/2020 12:30:52 Spinal stenosis of lumbar region 90609566 M48.062 Degenerati on of intervertebral disc 75196513 M51.17 M51.9 Diabetes mellitus 709614 09 E11.9 Lumbosacra l radiculitis 53292024 M54.17 Shoulder joint pain 2679 59925 M25.511 M25.519 36475 Partha Mike MD PAIN OFFICE [address] [place] [address] 01/12/2020 13:27:29 01/14/2020 10:17:33 Spinal stenosis of lumbar region 88786722 M48.062 Degenerati on of intervertebral disc 83955962 M51.17 M51.9 Diabetes mellitus 186395 09 E11.9 Lumbosacra l radiculitis 98183627 M54.17 Shoulder joint pain 2679 22023 M25.511 M25.519 Muscle pain 68751956 M79 .18 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 94237285 M47.816 03898 Partha Mike MD PAIN OFFICE [address] [place] [address] 02/12/2020 10:33:05 02/12/2020 12:16:21 Degeneration of intervertebral disc 50323613 M51.17 M51.9 Diabetes mellitus 560280 09 E11.9 Lumbosacra l radiculitis 26784983 M54.17 Muscle pain 05770449 M79 .18 Spinal deepika nosis of lumbar region 15402245 M48.062 56009 Partha Mike MD PAIN OFFICE [address] [place] [address] 04/19/2020 11:04:03 04/19/2020 16:28:26 Spinal stenosis of lumbar region 21799204 M48.062 Degenerati on of intervertebral disc 06824785 M51.17 M51.9 Diabetes mellitus 505104 09 E11.9 Lumbosacra l radiculitis 79057419 M54.17 Shoulder joint pain 2679 51810 M25.511 M25.519 Muscle pain 91966604 M79 .18 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 67795710 M47.816 31976 Partha Mike MD PAIN OFFICE [address] [place] [address] 07/12/2020 11:35:48 07/12/2020 16:22:01 Spinal stenosis of lumbar region 96228193 M48.062 Degenerati on of intervertebral disc 53831378 M51.17 M51.9 Diabetes mellitus 056842 09 E11.9 Lumbosacra l radiculitis 23928146 M54.17 Shoulder joint pain 2679 11857 M25.511 M25.519 Muscle pain 04209237 M79 .18 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 82981932 M47.816 35312 Partha Mike MD PAIN OFFICE [address] [place] [address] 10/04/2020 11:41:18 10/05/2020 14:19:50 Spinal stenosis of lumbar region 92589973 M48.062 Degenerati on of intervertebral disc 51773647 M51.17 M51.9 Diabetes mellitus 168257 09 E11.9 Lumbosacra l radiculitis 17814180 M54.17 Shoulder joint pain 2679 84796 M25.511 M25.519 Muscle pain 56960005 M79 .18 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 42444316 M47.816 04945 Partha Mike MD SV PAIN OFFICE [address] [place] [address] 01/03/2021 10:40:29 01/03/2021 15:47:46 Spinal stenosis of lumbar region 73047987 M48.062 Degenerati on of intervertebral disc 29512952 M51.17 M51.9 Diabetes mellitus 099066 09 E11.9 Lumbosacra l radiculitis 82132129 M54.17 Shoulder joint pain 2679 34425 M25.511 M25.519 Muscle pain 53222789 M79 .18 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 01989621 M47.816 57659 Partha Mike MD PAIN OFFICE [address] [place] [address] 03/31/2021 11:22:58 04/03/2021 08:59:53 Spondylosis without myelopathy 74791642 M47.816 Spinal deepika nosis of lumbar region 12993803 M48.062 Degenerati on of intervertebral disc 22430519 M51.17 M51.9 Muscle pain 99647715 M79 .18 Diabetes mellitus 102061 09 E11.9 Lumbosacra l radiculitis 06544558 M54.17 Shoulder joint pain 2679 12893 M25.511 M25.519 18759 Partha Mike MD PAIN OFFICE [address] [place] [address] 04/18/2021 10:28:27 04/18/2021 13:46:52 Spinal stenosis of lumbar region 43272722 M48.062 Degenerati on of intervertebral disc 01304134 M51.17 M51.9 Diabetes mellitus 611264 09 E11.9 Lumbosacra l radiculitis 01237087 M54.17 Shoulder joint pain 2679 04157 M25.511 M25.519 Muscle pain 09280946 M79 .18 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 52316266 M47.816 73466 Partha Mike MD PAIN OFFICE [address] [place] [address] 07/25/2021 10:05:25 07/25/2021 15:04:09 Spinal stenosis of lumbar region 58875518 M48.062 Degenerati on of intervertebral disc 36392988 M51.17 M51.9 Diabetes mellitus 326680 09 E11.9 Lumbosacra l radiculitis 15397222 M54.17 Shoulder joint pain 2679 81826 M25.511 M25.519 Muscle pain 51691380 M79 .18 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 66578993 M47.816 06417 Partha Mike MD SV PAIN OFFICE [address] [employer] [address] [facility] [place] [address] 10/03/2021 11:29:19 10/03/2021 14:14:03 Diabetes mellitus 63336862 E11.9 Lumbar post-laminectomy syndrome 657878644 M96.1 Inflammati on of sacroiliac joint 19156359 M46.1 67426 Partha Mike MD PAIN OFFICE [address] [facility] [place] [address] 10/04/2021 10:35:06 10/04/2021 16:23:26 Diabetes mellitus 69708652 E11.9 Lumbar post-laminectomy syndrome 054462417 M96.1 Inflammati on of sacroiliac joint 31683396 M46.1 09920 Partha Mike MD PAIN OFFICE [address] [facility] [place] [address] 10/30/2021 09:25:15 10/30/2021 09:31:03 Diabetes mellitus 49918311 E11.9 Lumbar post-laminectomy syndrome 919918976 M96.1 Inflammati on of sacroiliac joint 83236167 M46.1 96151 Partha Mike MD PAIN OFFICE [address] [facility] [place] [address] 01/02/2022 15:17:13 01/02/2022 16:35:15 Spinal stenosis of lumbar region 14930801 M48.062 Degenerati on of intervertebral disc 35368323 M51.17 M51.9 Diabetes mellitus 149084 09 E11.9 Lumbosacra l radiculitis 47762392 M54.17 Shoulder joint pain 2679 18537 M25.511 M25.519 Muscle pain 96821095 M79 .18 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 90126392 M47.816 35224 Partha Mike MD PAIN OFFICE [address] [facility] [place] [address] 04/25/2022 10:05:34 04/25/2022 10:54:23 Lumbosacral radiculopathy 5030814 M54.17 Degenerati on of lumbar intervertebral disc 81910030 M51.36 45619 Partha Mike MD SV PAIN OFFICE [address] [place] [address] [place] [address] 07/31/2022 12:59:02 07/31/2022 13:28:12 Lumbosacral radiculopathy 7812546 M54.17 Degenerati on of lumbar intervertebral disc 51748162 M51.36 77112 Partha Mike MD SV PAIN OFFICE [address] [place] [address] [place] [address] 10/23/2022 14:25:44 10/24/2022 09:29:06 Lumbosacral radiculitis 45432424 M54.17 Lumbosacra l radiculopathy 0676667 M54.17 Degenerati on of lumbar intervertebral disc 58535459 M51.36 60495 Partha Mike MD PAIN OFFICE [address] [place] [address] 01/08/2023 14:34:27 01/08/2023 16:27:27 Lumbosacral radiculopathy 0846689 M54.17 Degenerati on of lumbar intervertebral disc 33154253 M51.36 00681 Partha Mike MD PAIN OFFICE [address] [place] [address] 06/12/2023 14:08:28 06/12/2023 15:59:40 Spinal stenosis of lumbar region 69933867 M48.062 Lumbosacra l radiculopathy 7687712 M54.17 Degenerati on of lumbar intervertebral disc 53706646 M51.36 28675 Partha Mike MD PAIN OFFICE [address] [facility] [place] [address] 11/05/2023 10:51:33 11/05/2023 12:02:11 Lumbosacral radiculitis 82898580 M54.17 Lumbosacra l radiculopathy 9941905 M54.17 Degenerati on of lumbar intervertebral disc 14613960 M51.36 Lumbar post-laminectomy syndrome 881298218 M96.1 01492 Partha Mike MD [facility] PAIN OFFICE [address] [facility] [address] [facility] [place] [address] 12/04/2023 12:58:53 12/04/2023 14:55:08 Spinal stenosis of lumbar region 80205154 M48.062 Lumbosacra l radiculopathy 3291564 M54.17 Degenerati on of lumbar intervertebral disc 38294656 M51.36 45414 Partha Mike MD SV PAIN OFFICE [address] [facility] [address] [facility] [place] [address] 03/05/2024 11:00:26 03/05/2024 13:23:09 Spinal stenosis of lumbar region 21830387 M48.062 Lumbosacra l radiculitis 60461510 M54.17 Lumbosacra l radiculopathy 6003237 M54.17 Degenerati on of lumbar intervertebral disc 23099569 M51.36 Lumbar post-laminectomy syndrome 608133331 M96.1 15195 Partha Mike MD SV PAIN OFFICE [address] [facility] [address] [facility] [place] [address] 03/24/2024 11:06:25 03/24/2024 11:33:08 Spinal stenosis of lumbar region 10003054 M48.062 Lumbosacra l radiculopathy 7946527 M54.17 Degenerati on of lumbar intervertebral disc 32598451 M51.36 48123 Partha Mike MD SV PAIN OFFICE [address] [facility] [address] [facility] [place] [place] [address] 06/26/2024 10:56:44 06/26/2024 11:28:46 Spinal stenosis of lumbar region 44983462 M48.062 Lumbosacra l radiculitis 47276289 M54.17 Lumbosacra l radiculopathy 5767695 M54.17 Degenerati on of lumbar intervertebral disc 37847698 M51.362 Lumbar post-laminectomy syndrome 837723315 M96.1 82466 Partha Mike MD SV PAIN OFFICE [address] [employer] [address] [facility] [place] [address] 07/15/2024 08:21:12 07/15/2024 11:16:14 Spinal stenosis of lumbar region 15539679 M48.062 Lumbosacra l radiculopathy 3556332 M54.17 Degenerati on of lumbar intervertebral disc 84848695 M51.362 15424 Partha Mike MD PAIN OFFICE [address] [employer] [address] [facility] [place] [address] 10/16/2024 09:44:30 10/16/2024 11:21:12 Lumbosacral radiculitis 55917201 M54.17 Spinal deepika nosis of lumbar region 36477948 M48.062 Lumbosacra l radiculopathy 4650211 M54.17 Degenerati on of lumbar intervertebral disc 76714441 M51.362 Lumbar post-laminectomy syndrome 223197349 M96.1 78104 Partha Mike MD [facility] PAIN OFF[facility] [address] [facility] [place] [address] 12/01/2024 09:07:05 12/01/2024 16:42:50 Lumbosacral radiculitis 27418856 M54.17 Spinal deepika nosis of lumbar region [id number] M48.062 Lumbosacra l radiculopathy 1734335 M54.17 Degenerati on of lumbar intervertebral disc [id number] M51.362 Health Concerns Section Related Observation LastModified by Organization Detai ls LastModified Time None Recorded Concern Status LastModified by Organization Details LastModified Time None Recorded Advance Directives Directive None Recorded Payers Insurance Date Sequence Insurance Name Policy Number Policy Honeycutt Covered Member ID Honeycutt Member ID Guarantor Name 10/30/2021 [facility] [id number] Cole Taylor 10/30/2021 2 [place] [id number] Cole Taylor [id number] Cole Taylor 10/30/2021 2 [place] [id number] Cole Taylor [id number] Cole Taylor 11/05/2023 1 [place] [employer] Cole Taylor [id number] Cole Taylor 10/05/2013 2 UNSPECIFIED REMIT PAYOR Cole Taylor 10/30/2021 2 [employer] (MEDICARE REPLACEMENT/AD VANTAGE - POS) Cole Taylor [id number] Cole Taylor 10/30/2021 [place] [employer] [id number] Cole Taylor 10/30/2021 2 [employer] (MEDICARE SUPPLEMENT) Cole Taylor [id number] Cole Taylor 11/05/2023 2 [employer] (MEDICARE SUPPLEMENT) Cole Taylor [id number] Cole Taylor 10/16/2024 1 [employer] (PPO) [id number] Cole Taylor [id number] Cole Taylor 03/20/2025 1 [facility] (MEDICARE REPLACEMENT/AD VANTAGE - HMO) [id number] Cole Taylor [id number] Cole Taylor
--- OUTSIDE RECORDS SUMMARY | 2025-03-23 11:04 | XMS_ITS | Patient Health Record ---
[facility] Address [address] [place] [address] Care Team Providers Care [employer] Work Supervisor Name Role Phone Yvon Mckoy Jr, MD Primary Care Provider Unavail able Oscar Nikkie Unavailable [phone] Allergies Allergen (clinical drug ingredient) Drug/Non Drug Allergy documented on EMR Reaction Allergy Type Onset Date Status Advil Unknown Drug Allergy Active Aleve Unknown [...] disorder associated with type II diabetes mellitus (623927522) Type 2 diabetes mellitus with other diabetic neurological complication (E11.49) Active confirmed Problem Gout (72721252) Gout of left foot (M10.9) Active confirmed Rx drug management (4) Problem Gout (39568786) Gout of right foot (M10.9) Active confirmed Rx drug management (4) Problem 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 (019685780) 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 Rx drug management (4) Problem Chronic gouty arthritis (28230167) 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) Active confirmed Rx drug management (4) Plan Of Treatment No Information Insurance Providers Payer Name Payer Address Payer Phone Subscriber Number Group Number Insured Name Patient Relationship to Insured Coverage Start Date Coverage End Date Medicare [employer] [address] [place] [address] [id number] Cole Taylor Self - patient is the insured A[employer] Secondary to Medicare [address] [place] [address] [id number] Cole Taylor Self - patient is the insured Medical (General) History Medical History History ICD Code Back,Hip,and Knee pain type II diabetes Diverticulosis Gout High blood pressure Sciatica Chicken pox Arthritis Numbness Diabetic Reflux ( GERD) Surgical History Surgery Date(Month/Year) back 06/19/2010 tonsills 1970s
== END 2025-03-23 11:00 | disposition home or self-care (01) ==
LOC: HO.HUSH 10:13
PROVIDERS: PCP Internal Medicine; Visit Provider Urology
DX: N40.0 Benign prostatic hyperplasia without lower urinary tract symptoms (principal); N52.9 Male erectile dysfunction, unspecified; E29.1 Testicular hypofunction
CPT/HCPCS: 99213; 99214; G2211

== ENCOUNTER 2025-06-08 11:58 | Outpatient (REF) | payer MEDICARE, SELFPAY ==
[2025-06-13 11:59] LABS: Testosterone, Free 74.0 pg/mL (30.0-135.0)
== END 2025-06-08 11:59 | disposition home or self-care (01) ==
LOC: HO.LAB 11:58
PROVIDERS: PCP Family Medicine; Visit Provider Urology
DX: E29.1 Testicular hypofunction (principal)
CPT/HCPCS: 36415; 84402; 84403

== ENCOUNTER 2025-06-17 09:32 | Outpatient (AMB) | payer MEDICARE, SELFPAY ==
--- NOTE | 2025-06-17 09:31 | MHC.OFFVIS ---
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 He is a patient of Dr. Mckoy. He is seen for the following urologic condition. - erectile dysfunction - low libido - urinary frequency Telemedicine Evaluation 15 min Consultation [employer] Video Followup from starting testosterone gel Lab work good response Three pumps per day Significant nocturia secondary to Jardiance Recommend to PCP to initiate lowest dose possible SGLT2 given negative impact on nocturia and sleep quality Testosterone under 300 setting of diabetes with decreased energy Hypogonadism T 09/19 266, LH 5.3, 03/19 T 240, 05/20 360 Diabetic Initial symptomatology includes decreased energy and quality of erections Initial lab work indicates 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 Current therapy - testosterone 3 pumps per day Erectile dysfunction Penile implant placed proximally 2014 Has had issues with activation Concern about prior infection with MRI that was negative in November 2019 On examination today prosthetic was only partially deflated We went through discussion and instruction for full deflation followed by full inflation Prosthesis is mechanically intact with good inflation and Good deflation He had some degree of uncertainty about the exact process for each of these functions and this was addressed in the visit today [facility] Medical History (Updated 12/22/24 @ 09:38 by Louis Mccurdy MD) Morbid obesity Diabetes Sleep apnea Elevated cholesterol HTN (hypertension) BPH (benign prostatic hyperplasia) Vertigo Depression Spinal stenosis Chronic, continuous use of opioids Surgical History History of hemilaminectomy H/O colonoscopy Hx of appendectomy Family History Father Esophageal cancer Paternal Uncle Cancer Social History Alcohol intake: current Patient Tobacco Use Status: Never used Tobacco Review of Systems Const All systems reviewed & are unremarkable except as noted in HPI and below Reports no additional complaints Resp Reports no additional complaints GI Reports no additional complaints Reports as per HPI Musc Reports no additional complaints Physical Exam Telemedicine evaluation Appropriate responses Regular breathing rate and rhythm HEENT Head: Yes normal to inspection Ears: hearing grossly normal bilaterally Eyes General: appearance normal, both eyes and all related structures Neck Neck: Yes normal visual inspection Chest Chest palpation & inspection: normal inspection of the chest Resp Effort & Inspection: normal respiratory effort and able to speak in complete sentences Telehealth Telehealth Telehealth Platform: [employer] Location of provider rendering services: practice address Location of patient: address on file Patient Identification confirmed using: Name, : Yes Telehealth method: video Patient verbally consented to treatment: Yes Patient verbally consented to billing insurance company: Yes Patient informed of any privacy concerns related to visit: Yes Minutes spent on Phone/Video with Pt.: 15 Assessment & Plan Assessment & Plan (1) Erectile dysfunction associated with type 2 diabetes mellitus: Code(s): E11.69 - Type 2 diabetes mellitus with other specified complication; N52.1 - Erectile dysfunction due to diseases classified elsewhere Category: Medical (2) Hypogonadism in male: Code(s): E29.1 - Testicular hypofunction Category: Medical Plan Six-month follow-up office lab work Orders: Orders Testosterone, Total 5 Months E29.1 - Testicular hypofunction Prostate Specific Antigen 5 Months E29.1 - Testicular hypofunction Hematocrit 5 Months E29.1 - Testicular hypofunction Medications: Refilled testosterone apply 3 pumps over max area - alternate shoulders, were inner thigh on alternate days 3 pumps topical DAILY 150 grams 5RF 30 days E29.1 - Testicular hypofunction, R79.89 - Other specified abnormal findings of blood chemistry Patient Instructions: This note is constructed using voice recognition software. While every effort has been made to ensure accuracy financial service representative errors may have been included. Imaging studies, laboratory and physical exam results were discussed and reviewed in detail. No major barriers to patient understanding were identified. An opportunity to ask questions regarding the treatment plan was provided. All questions were answered. The patient expressed understanding and agreement with the above treatment plan. The patient is aware they should contact our office by phone for worsening of their current condition or the appearance of new urologic symptoms. Compliance is encouraged with any medications and followup testing that is ordered. It is a privilege to participate in the urologic care of your patient. If you have any questions or concerns regarding treatment for the above conditions, or other urologic issues, please do not hesitate to contact me. The office telephone contact is [phone]. Sincerely, Dr Louis Mccurdy MD, B[facility] - Urology Compassionate Specialist Care for the Genitourinary System Coding Level of Care Code Tele Est Pt Level 3 (89196) Complex EM visit Add On G2211 Diagnoses Erectile dysfunction associated with type 2 diabetes mellitus E11.69; N52.1 Hypogonadism in male E29.1
== END 2025-06-17 10:03 | disposition home or self-care (01) ==
LOC: HO.HUSH 09:32
PROVIDERS: PCP Family Medicine; Visit Provider Urology
DX: E11.69 Type 2 diabetes mellitus with other specified complication (principal); N52.1 Erectile dysfunction due to diseases classified elsewhere; E29.1 Testicular hypofunction
CPT/HCPCS: 99213; G2211